=== PATIENT | female | born 1975 | race Caucasian/White ===

== ENCOUNTER 2016-10-22 21:09 | Inpatient (IN) ==
[2016-10-22] MEDS ORDERED: NS 1,000 ML IV ONE (21:30)
[2016-10-22] MEDS ORDERED: HUMULIN R IV ONE (21:30)
[2016-10-22 21:34] LABS: ALLEN TEST YES; BLOOD TYPE ARTERIAL; DRAW SITE R RADIAL; METHB 0.8 % (0.0-1.5); O2(CT) 18.1 mL/dL (15.0-23.0); PO2(98.6) 110 mmHg (60-100); SAMPLE BLOOD; SAO2 98.2 % (95.0-100.0); THB 13.3 g/dL (11.5-17.4)
[2016-10-22 21:37] LABS: MODALITY ROOM AIR
[2016-10-22 21:38] LABS: PCO2(98.6) 17 mmHg (35-45); pH(98.6) 7.05 (7.35-7.45)
[2016-10-22 21:45] LABS: MANUAL DIFF NEEDED? NO
[2016-10-22 21:49] LABS: BASO% 0.5 % (0.0-0.8); EOS# 0.13 X1000 (0.0-0.7); EOS% 0.8 % (0.0-10.0); HEMATOCRIT 41.2 % (37.0-47.0); HEMOGLOBIN 13.2 g/dL (12.0-16.0); IMM GRAN% 1.8 % (0.0-0.5); LYMPH# 4.43 X1000 (1.2-3.4); LYMPH% 25.9 % (20.5-51.1); MCH 28.8 PG (27-31); MCV 89.8 FL (81-99); MONO# 0.81 X1000 (0.11-0.59); MONO% 4.7 % (1.7-9.3); MPV 10.9 FL (7.4-10.4); NEUT% 66.3 % (42.2-75.2); PLT 447 X1000 (130-400); RBC 4.59 XMIL (4.2-5.4)
[2016-10-22 21:56] LABS: INR 0.96; PTT 22.9 Seconds (22.0-36.0)
[2016-10-22] MEDS ORDERED: ZOFRAN IV ONE (22:00)
[2016-10-22] MEDS ORDERED: PHENERGAN IM ONE (22:04)
[2016-10-22 22:11] LABS: ALBUMIN 4.3 g/dL (3.5-5.0); CALCIUM 9.4 mg/dL (8.8-10.2); TOTAL BILIRUBIN 0.37 mg/dL (0.20-1.00); TOTAL PROTEIN 7.9 g/dL (6.3-8.3)
--- NOTE | 2016-10-22 22:34 | PROVIDER DOCUMENTATION ---
This chart was entered by Xiomara Knight Scribe, acting as scribe for Dustin Humphrey MD. HPI-General Adult - General Stated Complaint: hyperglycemia Time Seen by Provider: 10/22/16 21:14 Source: patient Allergies/Adverse Reactions: Patient Allergies Allergy/AdvReac Type Severity Reaction Status Date / Time No Known Allergies Allergy Verified 10/22/16 21:40 Home Medications: Home Medication List Medication Instructions Recorded Confirmed Last Taken Type Insulin Aspart [Novolog] 0 unit SQ DIRECTED PRN PRN 10/22/16 10/22/16 History Insulin Detemir [Levemir] 40 unit SUBQ HS 10/22/16 10/22/16 10/21/16 History - History of Present Illness -Gen Adult Nature of Presenting Problems: Pt is a 41 year old female who came to the ED with a cc high blood sugar and running out of her long lasting insulin. Pt reports she is N/V. Location of Pain/Injury: reports: none Pain Radiation: reports: no radiation Quality of Pain: reports: none Severity: reports: mild Onset/Duration: reports: just prior to arrival Timing: reports: still present Associated Symptoms: reports: vomiting, weakness Similar Symptoms Previously?: Yes Recently seen or treated by another doctor?: No - Diabetes Related Context Context: reports: high blood sugar, prior DKA hospitalization Review of Systems - Adult - REVIEW OF SYSTEMS - ADULT Constitutional: denies: chills, fever Eyes: reports: no symptoms reported Ears, Nose, Mouth & Throat: denies: ear discharge, nose pain Cardiovascular: reports: no symptoms reported Respiratory: denies: cough, shortness of breath Gastrointestinal: reports: nausea, vomiting. denies: difficulty swallowing, frequent heartburn Genitourinary: reports: no symptoms reported Musculoskeletal: reports: no symptoms reported Integumentary: reports: no symptoms reported Neurological: reports: no symptoms reported Psychiatric: reports: no symptoms reported Endocrine: reports: other (High blood sugar). denies: change in skin pigment, cold intolerance Hematologic/Lymphatic: reports: no symptoms reported Allergic/Immunologic: reports: no symptoms reported All Other Systems: Reviewed and Negative Past History - Adult - PAST MEDICAL HISTORY-ADULT Review of Records: reports: Nursing Assessment Review Major Childhood Illnesses: reports: denies history Cardiovascular: reports: hyperlipidemia Gastrointestinal: reports: GERD Genitourinary: reports: chronic UTI's, other (ARF) Neurological: reports: Seizures/Epilepsy Psychiatric: reports: anxiety, depression Endocrine/Immune: reports: Diabetes Additional History: Frequent ER visits - PRIOR SURGERIES/PROCEDURES Surgical/Procedure History: reports: cholecystectomy, BTL, , tonsillectomy - PRIOR HOSPITALIZATIONS Prior Hospitalizations: reports: for similar symptoms - IMMUNIZATION STATUS Childhood Immunizations: See Nurse Assessment Flu Vaccine: See Nurse Assessment - FAMILY HISTORY Family History: diabetes Physical Exam-General - PHYSICAL EXAM-ADULT Initial Vital Signs Reviewed: Yes - CONSTITUTIONAL General Appearance: mild distress - EYES Eyes: PERRL/EOMI, pink conjunctivae - HEAD, EARS, NOSE, MOUTH & THROAT HENMT: normocephalic/atraumatic, moist mucous membranes, normal ENT inspection - NECK Neck: non-tender, full range of motion - RESPIRATORY Respiratory: chest non-tender, lungs clear, normal breath sounds - CARDIOVASCULAR Cardiovascular: normal peripheral pulses, regular rate, rhythm - GASTROINTESTINAL (ABDOMEN) Abdominal Exam: normal bowel sounds, non tender, soft - MUSCULOSKELETAL Back Exam: normal inspection, no CVA tenderness Extremity: normal range of motion, non-tender - SKIN Integumentary: pallor, other (dry) - NEUROLOGIC Neurologic: grossly normal - PSYCHIATRIC Psych/Mental Status: normal mood/affect, normal thought content, normal thought process, oriented x 3 Progress - PLAN OF CARE/RESULTS Progress/Plan/Lab Results: Vital Signs - 8 hr 10/22/16 21:15 Temperature 98.4 F Pulse Rate 137 H Respiratory Rate 15 Blood Pressure 153/102 O2 Sat by Pulse Oximetry 96 Laboratory Results - last 24 hr 10/22/16 10/22/16 10/22/16 21:20 21:20 21:20 WBC 17.10 H RBC 4.59 Hgb 13.2 Hct 41.2 MCV 89.8 MCH 28.8 MCHC 32.0 L RDW Std Deviation 16.5 H Plt Count 447 H MPV 10.9 H Immature Gran % (Auto) 1.8 H Neut % (Auto) 66.3 Lymph % (Auto) 25.9 [place] % (Auto) 4.7 Eos % (Auto) 0.8 Baso % (Auto) 0.5 Immature Gran # (Auto) 0.30 H Neut # (Auto) 11.34 H Lymph # (Auto) 4.43 H [place] # (Auto) 0.81 H Eos # (Auto) 0.13 Baso # (Auto) 0.09 PT INR PTT (Actin FS) Specimen Type Sample Site pH pCO2 pO2 HCO3 Base Excess Oxyhemoglobin ABG O2 Sat (Calculated) ABG O2 Saturation ABG Carboxyhemoglobin ABG Methemoglobin Manuel Test A-a O2 Difference Total Hemoglobin Lactate Blood Gas Modality FiO2 % Sodium 127 L Potassium 5.0 Chloride 80 L Carbon Dioxide 5 L Anion Gap 42 BUN 15 Creatinine 1.1 H Estimated GFR/1.73 m2 55 BUN/Creatinine Ratio 14 Glucose 984 H* Calculated Osmolality 303 Calcium 9.4 Total Bilirubin 0.37 AST 77 H ALT 174 H Alkaline Phosphatase 206 H Creatine Kinase 19 L Troponin T Total Protein 7.9 Albumin 4.3 Globulin 3.6 Albumin/Globulin Ratio 1.2 Plasma/Serum Ethyl Alc 10/22/16 10/22/16 10/22/16 21:20 21:20 21:24 WBC RBC Hgb Hct MCV MCH MCHC RDW Std Deviation Plt Count MPV Immature Gran % (Auto) Neut % (Auto) Lymph % (Auto) [place] % (Auto) Eos % (Auto) Baso % (Auto) Immature Gran # (Auto) Neut # (Auto) Lymph # (Auto) [place] # (Auto) Eos # (Auto) Baso # (Auto) PT 10.0 INR 0.96 PTT (Actin FS) 22.9 Specimen Type ARTERIAL Sample Site R RADIAL pH 7.05 L* pCO2 17 L* pO2 110 H HCO3 6.2 L Base Excess -24.0 L Oxyhemoglobin 95.9 ABG O2 Sat (Calculated) 18.1 ABG O2 Saturation 98.2 ABG Carboxyhemoglobin 1.50 ABG Methemoglobin 0.8 Manuel Test YES A-a O2 Difference 18.0 Total Hemoglobin 13.3 Lactate 2.20 Blood Gas Modality ROOM AIR FiO2 % 21.0 Sodium Potassium Chloride Carbon Dioxide Anion Gap BUN Creatinine Estimated GFR/1.73 m2 BUN/Creatinine Ratio Glucose Calculated Osmolality Calcium Total Bilirubin AST ALT Alkaline Phosphatase Creatine Kinase Troponin T < 0.010 Total Protein Albumin Globulin Albumin/Globulin Ratio Plasma/Serum Ethyl Alc Orders Category Date Time Status Cardiac Monitoring DIRECTED Care 10/22/16 21:24 Active Finger Stick Blood Sugar (ED) DIRECTED Care 10/22/16 21:24 Active Oxygen Therapy- ED Nursing DIRECTED Care 10/22/16 21:24 Active Saline Loc NOW Care 10/22/16 21:24 Active CHEST-PORTABLE [RAD] Stat Exams 10/22/16 21:24 Taken ABG [RESP] Routine Lab 10/22/16 21:24 Completed ABG [RESP] Routine Lab 10/22/16 21:29 Ordered ALCOHOL BLOOD Stat Lab 10/22/16 21:20 Completed CBC WITH ELECTRONIC DIFF [HEME] Stat Lab 10/22/16 21:20 Completed CK PROFILE [SP CHEM] Stat Lab 10/22/16 21:20 Completed COMPREHENSIVE METABOLIC PANEL [CHEM] Stat Lab 10/22/16 21:20 Completed PROTIME WITH INR [COAG] Stat Lab 10/22/16 21:20 Completed PTT [COAG] Stat Lab 10/22/16 21:20 Completed TROPONIN T Stat Lab 10/22/16 21:20 Completed URINALYSIS W/POSS RFLX CULT-1 [URINALYSIS] Stat Lab 10/22/16 22:29 Ordered URINE DRUG SCREEN Stat Lab 10/22/16 22:29 Ordered 0.9% Sodium Chloride Inj [Ns] 1,000 ml Med 10/22/16 21:30 Discontinued IV 999 mls/hr 0.9% Sodium Chloride Inj [Ns] 100 ml Med 10/22/16 22:15 Active Insulin Human Regular [Humulin R] 100 unit IV Per Protocol Insulin Human Regular [Humulin R] Med 10/22/16 21:30 Discontinued 15 unit IV NOW ONE Ondansetron [Zofran] Med 10/22/16 22:00 Discontinued 8 mg IV NOW ONE Promethazine [Phenergan] Med 10/22/16 22:04 Discontinued 25 mg IM NOW ONE Pulse Oximetry Stat Oth 10/22/16 21:24 Active EKG [EKG] Stat Ther 10/22/16 21:24 Ordered Result Diagrams: 10/22/16 21:20 10/22/16 21:20 Departure - Departure Date of Disposition Decision: 10/22/16 Time of Disposition Decision: 22:34 DIAGNOSIS: Diabetic ketoacidosis Disposition: ADMITTED INPATIENT 09 Certified Medical Emergency: Emergent Condition: Critical - Critical Care Note This patient required my direct & personal management of CC.: No Attestation - Physician/ KIAN Attestation The physician spent face to face time with patient:: Yes Advanced Practice Provider documentation review:: The physician spent face to face time with this patient and agrees with all MLP documentation, treatment, and medical decision making by the MLP. See provider notes for further information. This chart was documented by the indicated scribe, (Xiomara Knight Scribe) and accurately reflects the services I performed and decisions made by , Dustin Humphrey MD, as attested by the provider's signature.
[2016-10-22 22:48] LABS: URINE CULTURE NEEDED? NO; URINE MICRO REVIEW NEEDED? NO; URINE SOURCE CATH
[2016-10-22 23:05] LABS: UR AMPHETAMINES QUAL NONE DETECTED (NONE DETECT); UR BARBITUATES QUAL NONE DETECTED (NONE DETECT); UR BENZODIAZEPIN QUAL NONE DETECTED (NONE DETECT); UR CANNABINOIDS QUAL NONE DETECTED (NONE DETECT); UR COCAINE QUAL NONE DETECTED (NONE DETECT); UR METHADONE QUAL NONE DETECTED (NONE DETECT); UR OPIATES QUAL NONE DETECTED (NONE DETECT); UR OXYCODONE QUAL NONE DETECTED (NONE DETECT); UR PCP QUAL NONE DETECTED (NONE DETECT)
[2016-10-22 23:09] LABS: BILIRUBIN URINE NEGATIVE (NEGATIVE); BLOOD URINE NEGATIVE (NEGATIVE); COLOR YELLOW; GLUCOSE URINE >1000 mg/dL (NEGATIVE); LEUKOCYTES URINE NEGATIVE (NEGATIVE); NITRITE URINE NEGATIVE (NEGATIVE); PROTEIN URINE TRACE mg/dL (NEGATIVE); SP GRAVITY URINE 1.024; TURBIDITY URINE CLEAR (CLEAR); UR EPITHELIAL CELLS <10 /HPF (<10); URINE BACTERIA NEGATIVE /HPF; URINE RBC <10 /HPF (<10); URINE WBC <10 /HPF (<10); UROBILINOGEN URINE NORMAL (NORMAL)
[2016-10-22 23:11] LABS: MAGNESIUM 1.9 mg/dL (1.5-2.7)
[2016-10-22 23:18] LABS: HEMOGLOBIN A1C 11.3 % (4.8-6.0)
[2016-10-22] MEDS: HUMULIN R 100 UNIT in NS 100 ML IV SCH (23:40)
[2016-10-22] MEDS ORDERED: D50W SYRINGE IV PRN (23:42)
[2016-10-22] MEDS ORDERED: ZOFRAN PO PRN (23:42)
[2016-10-22] MEDS ORDERED: SODIUM PHOSPHATE 30 MMOL in D5W 250 ML IV PRN (23:42)
[2016-10-22] MEDS ORDERED: TYLENOL PR PRN (23:42)
--- NOTE | 2016-10-23 00:14 | HISTORY AND PHYSICAL ---
Patient of Dr. Fredo Worrell REASON FOR ADMISSION: Polyuria, polydipsia for 3 days, nausea and vomiting for same duration and generalized weakness for the last 2 days. HISTORY OF PRESENT ILLNESS: Ms. Lakshmi Mallory is 41-year-old lady with past medical history of type 1 diabetes with multiple admissions for DKA. Comes in today and about 3-4 days history of nausea and subsequent 1 day history of vomiting today 6 times. No blood or coffee grounds. Also complains of epigastric discomfort for the last 1-2 days and worse after vomiting. No diarrhea. The pain is epigastric pain localized epigastric not radiating. Comes in today complaining of worsening polyuria, polydipsia and generalized weakness. She says she has been out of her Levemir for 2 days. She has taken Humalog however. Complains of sharp to dull constant chest pain today nonradiating with no specific aggravating or relieving factors and with simultaneous palpitations and shortness of breath. Pain does not radiate anywhere per se, it is pretty much in the retrosternal area. No cough, no PND, orthopnea, extremity redness or pain. No fever, no chills. REVIEW OF SYSTEMS: Notable for xerostomia, dry sore throat and a dull throbbing headache with blurry vision but no neck stiffness. She complains of excessive thirst also. Review of systems 12 systems is negative. Positive findings per HPI. ALLERGIES: No known allergies. MEDICATION LIST: She is on Levemir 25 units b.i.d. and NovoLog per sliding scale. SURGICAL HISTORY: A cholecystectomy, tubal ligation, , tonsillectomy. SOCIAL HISTORY: Smokes a half pack a day. No alcohol or drug use. She is and lives with spouse. FAMILY HISTORY: Notable for throat cancer, diabetes and COPD. LAB WORK: Notable for an EKG that showed nonspecific ST depressions in the inferior leads. No sinus tachycardia. White count 17,000 hemoglobin and hematocrit 13 and 41, platelets 447,000 with normal differential. Sodium was 127, BUN 14, creatinine 1.1, glucose 984, phosphorus 5.5, AST 77, ALT 174, alkaline phosphatase 207, troponin is negative, amylase, lipase is normal, bicarb is 5, anion gap is 42 UDS is negative. Glucose greater than 1000, ketones greater than 150. ABG 7.0 pH, pCO2 17, PO2 110, bicarb 6 on room air. Chest film reviewed by me. Good quality film with no infiltrates, no evidence of pneumothorax and she has a slightly thin heart and well- expanded lungs findings mildly suggestive COPD. EXAMINATION: Vital signs: Pulse is 142, temperature 98.4 degrees, respirations 18, blood pressure 174/82, 97% room air. General: She is a thin middle-aged woman who appears older than stated age. She is drowsy but easily arousable oriented to person, place, and time, sad affect and depressed mood. HEENT: Head is normocephalic, atraumatic. ESTHELA, EOMI, she is anicteric and not pale. ENT exam is grossly normal. Neck: Supple. No JVD or carotid bruit. No thyromegaly. She has good skin turgor. Chest: Clear to auscultation. Good air entry both lung bello. Cardiovascular: First, second heart sounds heard. No gallops, murmurs, rubs. Rhythm is regular. Abdomen: Scaphoid, soft, epigastric tenderness and right upper quadrant tenderness. Krishna's negative. No rebound or guarding. Bowel sounds are normal. No mass or megaly. Rectal: Deferred. Extremities: Patient has decreased pulses distally in all extremities and is weak and thready but they are symmetrical. No edema, clubbing, cyanosis. Neuro: No discernible focal deficit. Skin: Is intact. No breakdown, lesion, erythema. Muscular exam: Grossly normal. ASSESSMENT AND PLAN: 1. Diabetic ketoacidosis probably secondary to noncompliance. 2. Dehydration secondary to #. 3. Diabetic ketoacidosis type 1. 4. Epigastric pain probably secondary to gastritis and vomiting. 5. Tobacco use. PLAN: At this time patient will be admitted to the ICU. Started on DKA protocol with serial labs. A1c has been ordered and need to be followed and probably prior to her discharge insulin regimen may need to be adjusted. Patient in my opinion I suspect is not very compliant with her medications. This needs to be reemphasized importance of compliance and IV fluid resuscitation will be aggressively pursued in the acute phase of her illness. CRITICAL CARE TIME: Was 33 minute. cc: Fredo Worrell MD
[2016-10-23] MEDS: SODIUM CHLORIDE 0.9% INJ SCH ×2 (00:40→11:20)
[2016-10-23] MEDS: PEPCID IV SCH ×2 (00:40→11:20)
[2016-10-23] MEDS: NS 1,000 ML IV SCH ×3 (00:40→03:13)
[2016-10-23] MEDS: HUMULIN R 100 UNIT in NS 100 ML IV SCH (01:05)
[2016-10-23] MEDS: MORPHINE IV PRN ×5 (01:50→19:33)
[2016-10-23] MEDS: COMPAZINE PO PRN ×2 (01:56→08:15)
[2016-10-23 03:20] LABS: AGAP 29; BUN 14 mg/dL (8-22); CALCIUM 8.3 mg/dL (8.8-10.2); CHLORIDE 104 mmol/L (98-107); COSMO 290; MAGNESIUM 1.4 mg/dL (1.5-2.7); POTASSIUM 3.5 mmol/L (3.5-5.1); SODIUM 140 mmol/L (136-145); TCO2 7 mmol/L (25-35)
[2016-10-23] MEDS: MAGNESIUM SULFATE 2 GM/S.W.I. 2 GM/50 ML IVPB IV PRN ×2 (04:02→21:05)
[2016-10-23] MEDS: NS + KCL 20 MEQ 1,000 ML IV SCH ×6 (04:08→22:05)
--- NOTE | 2016-10-23 07:15 | Diag Imaging Result Doc PS360 ---
EXAM: CHEST-PORTABLE INDICATION: AMS TECHNIQUE: One view COMPARISON: 01/23/2016 FINDINGS: The lungs are grossly clear. There is no discrete pleural fluid collection or pneumothorax. The cardiomediastinal silhouette and central vasculature are grossly unremarkable. IMPRESSION: No evidence of acute pathology by plain radiograph. Electronically signed by German Aguirre 10/23/2016 7:13 AM
--- NOTE | 2016-10-23 07:31 | EKG Report ---
Test Performed on : 10/22/2016 10:31:29 PM Test Reason : AMS Blood Pressure : / mmHG Vent. Rate : 139 BPM Atrial Rate : 139 BPM P-R Int : 116 ms QRS Dur : 078 ms QT Int : 294 ms P-R-T Axes : 068 085 -07 degrees QTc Int : 447 ms Sinus tachycardia. Possible Left atrial enlargement T wave abnormality, consider inferior ischemia Abnormal ECG When compared with ECG of 29-JAN-2016 09:01, Inverted T waves have replaced nonspecific T wave abnormality in Inferior leads Unconfirmed Result
[2016-10-23] MEDS: D5 1/2 NS + KCL 10 MEQ 1,000 ML IV SCH ×4 (08:36→22:26)
[2016-10-23 09:37] LABS: MAGNESIUM 2.1 mg/dL (1.5-2.7)
[2016-10-23 09:44] LABS: AGAP 19; BUN 10 mg/dL (8-22); CALCIUM 7.8 mg/dL (8.8-10.2); CHLORIDE 105 mmol/L (98-107); COSMO 284; POTASSIUM 4.6 mmol/L (3.5-5.1); SODIUM 140 mmol/L (136-145); TCO2 16 mmol/L (25-35)
[2016-10-23] MEDS: ZOFRAN IV PRN ×2 (09:51→16:01)
[2016-10-23 10:23] LABS: BASO% 0.2 % (0.0-0.8); HEMATOCRIT 34.5 % (37.0-47.0); HEMOGLOBIN 11.6 g/dL (12.0-16.0); IMM GRAN# 0.17 X1000 (0.0-0.04); IMM GRAN% 0.8 % (0.0-0.5); LYMPH# 2.74 X1000 (1.2-3.4); LYMPH% 13.4 % (20.5-51.1); MANUAL DIFF NEEDED? YES; MCH 28.6 PG (27-31); MCHC 33.6 g/dL (33-37); MCV 85.2 FL (81-99); MONO# 1.11 X1000 (0.11-0.59); MONO% 5.4 % (1.7-9.3); MPV 10.3 FL (7.4-10.4); NEUT% 80.2 % (42.2-75.2); PLT 353 X1000 (130-400); RBC 4.05 XMIL (4.2-5.4)
[2016-10-23] MEDS: XANAX PO PRN ×2 (10:33→20:48)
[2016-10-23 10:40] LABS: BANDS 2 % (0-1); LYMPHS 8 % (21-51); MONO 8 % (1-9)
[2016-10-23] MEDS: TYLENOL PO PRN ×2 (12:42→18:21)
[2016-10-23 13:47] LABS: AGAP 16; BUN 8 mg/dL (8-22); CALCIUM 7.4 mg/dL (8.8-10.2); CHLORIDE 103 mmol/L (98-107); COSMO 275; POTASSIUM 3.7 mmol/L (3.5-5.1); SODIUM 136 mmol/L (136-145); TCO2 17 mmol/L (25-35)
[2016-10-23 13:53] LABS: MAGNESIUM 1.8 mg/dL (1.5-2.7)
[2016-10-23 15:00] LABS: ALLEN TEST YES; BE -12.2 mmoll (-3.0-3.0); BLOOD TYPE ARTERIAL; DRAW SITE R RADIAL; O2(CT) 13.5 mL/dL (15.0-23.0); PCO2(98.6) 27 mmHg (35-45); PO2(98.6) 105 mmHg (60-100); SAMPLE BLOOD; SAO2 98.7 % (95.0-100.0); THB 9.8 g/dL (11.5-17.4); pH(98.6) 7.29 (7.35-7.45)
[2016-10-23 15:01] LABS: MODALITY ROOM AIR
--- NOTE | 2016-10-23 15:57 | PROGRESS NOTE ---
DATE: 10/23/2016 SUBJECTIVE: Patient reports still feeling nauseated. No fever reported. No nausea. She reports feeling a little bit anxious. OBJECTIVE: Vital Signs: Temperature 97.9 degrees, heart rate 110, respiratory rate 16, blood pressure 120/72, O2 saturation 100% on room air. General examination: This is a chronically ill- looking, 41-year-old female lying in bed, in no acute distress. HEENT: Head is normocephalic, atraumatic. Anicteric sclerae and pale conjunctivae. Mucous membranes moist. Neck: Supple. No JVD noted. No carotid bruits. No lymphadenopathy. No thyromegaly. Cardiovascular: S1, S2 heard. No murmurs, gallops, or rubs. Regular rate and rhythm. Respiratory: Clear bilaterally to auscultation. No work of breathing or using accessory muscle. Abdomen: Soft. Nontender to palpation. Bowel sounds present. No organomegaly. Extremities: No clubbing, cyanosis, or edema. Peripheral pulses present in both legs. Neurological: Patient is alert and oriented x3. Able to move 4 extremities. Cranial nerves 2 through 12 grossly normal. LABORATORY DATA: Last BMP showed anion gap 19, bicarbonate 16, phosphorus 2.1, magnesium 1.4. ASSESSMENT: 1. Diabetic ketoacidosis secondary to noncompliance. 2. Dehydration. 3. Diabetes mellitus type 1. 4. Epigastric pain secondary to gastritis. 5. Tobacco use. PLAN: We are going to continue with insulin drip. The anion gap is slowly closing. Now it is still 19. Bicarbonate is going up slowly. At this time, we are going to continue with the same IV fluids, in this case D5 half normal saline and also on insulin drip as well. We are going to continue checking BMP every 4 hours. We are going to check 2 p.m. ABG and we will go from there. This episode of DKA noncompliance. Patient was advised about being compliant with her insulin. cc: Krishan Berrios MD
[2016-10-23] MEDS: ZOSYN 3.375 GM/NS 3.375 GM/50 ML IVPB IV SCH ×2 (16:01→20:48)
[2016-10-23 16:31] LABS: AGAP 17; BUN 7 mg/dL (8-22); CHLORIDE 104 mmol/L (98-107); COSMO 276; POTASSIUM 3.4 mmol/L (3.5-5.1); SODIUM 136 mmol/L (136-145); TCO2 15 mmol/L (25-35)
[2016-10-23] MEDS ORDERED: CALCIUM GLUCONATE 2 GM in NS 100 ML IV ONE (16:37)
[2016-10-23 19:47] LABS: AGAP 16; BUN 5 mg/dL (8-22); CALCIUM 7.8 mg/dL (8.8-10.2); CHLORIDE 101 mmol/L (98-107); COSMO 269; POTASSIUM 3.3 mmol/L (3.5-5.1); SODIUM 134 mmol/L (136-145); TCO2 17 mmol/L (25-35)
[2016-10-23 20:33] LABS: MAGNESIUM 1.7 mg/dL (1.5-2.7)
[2016-10-24] MEDS: MORPHINE IV PRN ×7 (00:50→21:40)
[2016-10-24] MEDS: ZOFRAN IV PRN ×3 (00:51→21:41)
[2016-10-24] MEDS: NS + KCL 20 MEQ 1,000 ML IV SCH ×5 (02:31→15:33)
[2016-10-24] MEDS: D5 1/2 NS + KCL 10 MEQ 1,000 ML IV SCH ×6 (02:32→20:35)
[2016-10-24] MEDS: SODIUM CHLORIDE 0.9% INJ SCH ×3 (02:35→14:56)
[2016-10-24] MEDS: PEPCID IV SCH ×2 (02:40→14:56)
[2016-10-24] MEDS: ZOSYN 3.375 GM/NS 3.375 GM/50 ML IVPB IV SCH ×4 (02:41→21:09)
[2016-10-24] MEDS: XANAX PO PRN ×3 (02:58→18:06)
[2016-10-24 03:09] LABS: AGAP 15; BUN 3 mg/dL (8-22); CALCIUM 7.6 mg/dL (8.8-10.2); CHLORIDE 103 mmol/L (98-107); COSMO 272; MAGNESIUM 2.1 mg/dL (1.5-2.7); POTASSIUM 3.4 mmol/L (3.5-5.1); SODIUM 137 mmol/L (136-145); TCO2 19 mmol/L (25-35)
[2016-10-24 08:05] LABS: AGAP 18; BUN 2 mg/dL (8-22); CALCIUM 7.4 mg/dL (8.8-10.2); CHLORIDE 103 mmol/L (98-107); COSMO 272; POTASSIUM 3.8 mmol/L (3.5-5.1); SODIUM 137 mmol/L (136-145); TCO2 16 mmol/L (25-35)
[2016-10-24 08:32] LABS: MAGNESIUM 2.3 mg/dL (1.5-2.7)
[2016-10-24] MEDS: HUMULIN R 100 UNIT in NS 100 ML IV SCH (08:34)
[2016-10-24 10:39] LABS: MANUAL DIFF NEEDED? NO
[2016-10-24 10:44] LABS: BASO% 0.3 % (0.0-0.8); EOS# 0.07 X1000 (0.0-0.7); EOS% 0.7 % (0.0-10.0); HEMATOCRIT 29.8 % (37.0-47.0); HEMOGLOBIN 9.9 g/dL (12.0-16.0); IMM GRAN# 0.03 X1000 (0.0-0.04); IMM GRAN% 0.3 % (0.0-0.5); LYMPH# 3.75 X1000 (1.2-3.4); LYMPH% 38.8 % (20.5-51.1); MCH 28.4 PG (27-31); MCHC 33.2 g/dL (33-37); MCV 85.6 FL (81-99); MONO% 5.2 % (1.7-9.3); MPV 9.5 FL (7.4-10.4); NEUT% 54.7 % (42.2-75.2); PLT 240 X1000 (130-400); RBC 3.48 XMIL (4.2-5.4)
[2016-10-24 11:02] LABS: AGAP 13; BUN 2 mg/dL (8-22); CALCIUM 7.2 mg/dL (8.8-10.2); CHLORIDE 102 mmol/L (98-107); COSMO 262; POTASSIUM 3.7 mmol/L (3.5-5.1); SODIUM 131 mmol/L (136-145); TCO2 16 mmol/L (25-35)
--- NOTE | 2016-10-24 14:26 | PROGRESS NOTE ---
DATE: 10/24/2016 SUBJECTIVE: Patient reports feeling better. She was trying clear liquid diet and she requests to try something more consistent. She denies any fever or chills. OBJECTIVE: Vital Signs: Temperature 97.8 degrees, heart rate 80, respiratory rate 16, blood pressure 119/85, and O2 saturation 100% on room air. General: This is a chronically ill-looking, 41-year-old, female, lying in bed in no acute distress. HEENT: Head is normocephalic and atraumatic. Anicteric sclerae and pale conjunctivae. Mucous membranes moist. Neck: Supple. No JVD noted. No carotid bruits. No lymphadenopathy. No thyromegaly. Cardiovascular: S1 and S2 heard. No murmurs, gallops, or rubs. Regular rate and rhythm. Respiratory: Clear bilaterally to auscultation. No work of breathing or using accessory muscles. Abdomen: Soft, nontender to palpation. Bowel sounds present. No organomegaly. Extremities: No clubbing, cyanosis, or edema. Peripheral pulses present in both legs. Neurological: Patient is alert and oriented x3. Able to move her extremities. Cranial nerves 2-12 grossly normal. LABORATORY DATA: White cell count 9.67, hemoglobin 9.9, hematocrit 29.8, and platelets 240,000. Last BMP showed anion gap 18 with bicarbonate of 16 and glucose 142 with hemoglobin A1c of 11.3. ASSESSMENT AND PLAN: 1. Diabetic ketoacidosis secondary to noncompliance. Patient reports that she ran out of medication. Patient's primary care was trying to get her in with an care partner. In any case, patient's laboratory data is getting better. Gap is about to close, but not now. At this time, we are going to continue with the insulin drip. We will continue checking BMP every 6 hours. When the gap closes and bicarbonate is greater than 19-20, we will switch to her home medication, Levemir. 2. Diabetes mellitus, type 1, very poorly controlled with hemoglobin A1c of 11.1. Patient has been advised many times about the importance of being compliant with medication. 3. Dehydration. Patient will continue with IV fluids. 4. Epigastric pain secondary to gastritis. Aware. 5. Tobacco abuse. Patient has been counseled to stop smoking. cc: Krishan Berrios MD
[2016-10-24 17:24] LABS: AGAP 9; BUN 1 mg/dL (8-22); CALCIUM 7.2 mg/dL (8.8-10.2); CHLORIDE 105 mmol/L (98-107); COSMO 268; POTASSIUM 3.5 mmol/L (3.5-5.1); SODIUM 134 mmol/L (136-145); TCO2 20 mmol/L (25-35)
[2016-10-24] MEDS ORDERED: LEVEMIR SUBQ SCH (23:28)
[2016-10-24] MEDS ORDERED: HUMALOG SUBQ ONE (23:28)
[2016-10-24 23:49] LABS: AGAP 11; BUN 2 mg/dL (8-22); CALCIUM 7.1 mg/dL (8.8-10.2); CHLORIDE 104 mmol/L (98-107); COSMO 272; SODIUM 135 mmol/L (136-145); TCO2 20 mmol/L (25-35)
[2016-10-25] MEDS ORDERED: INSULIN PEN NEEDLES ONE (00:03)
[2016-10-25] MEDS: MORPHINE IV PRN ×5 (00:23→12:59)
[2016-10-25] MEDS: XANAX PO PRN ×2 (00:24→06:26)
[2016-10-25] MEDS: HUMALOG SUBQ SCH ×4 (00:29→11:42)
[2016-10-25] MEDS: D5 1/2 NS + KCL 10 MEQ 1,000 ML IV SCH (00:44)
[2016-10-25] MEDS: NS 1,000 ML IV SCH ×2 (00:48→08:26)
[2016-10-25] MEDS: ZOSYN 3.375 GM/NS 3.375 GM/50 ML IVPB IV SCH ×2 (03:46→08:24)
[2016-10-25] MEDS: PEPCID IV SCH (03:46)
[2016-10-25] MEDS: SODIUM CHLORIDE 0.9% INJ SCH (03:46)
[2016-10-25 05:43] LABS: MANUAL DIFF NEEDED? NO
[2016-10-25 06:21] LABS: AGAP 11; BUN 2 mg/dL (8-22); CALCIUM 7.7 mg/dL (8.8-10.2); CHLORIDE 106 mmol/L (98-107); COSMO 268; POTASSIUM 4.2 mmol/L (3.5-5.1); SODIUM 136 mmol/L (136-145); TCO2 19 mmol/L (25-35)
[2016-10-25 06:31] LABS: BASO% 0.3 % (0.0-0.8); EOS# 0.14 X1000 (0.0-0.7); EOS% 2.1 % (0.0-10.0); IMM GRAN# 0.02 X1000 (0.0-0.04); IMM GRAN% 0.3 % (0.0-0.5); LYMPH# 3.19 X1000 (1.2-3.4); LYMPH% 48.5 % (20.5-51.1); MCH 29.2 PG (27-31); MCHC 33.3 g/dL (33-37); MCV 87.7 FL (81-99); MONO# 0.51 X1000 (0.11-0.59); MONO% 7.8 % (1.7-9.3); MPV 9.9 FL (7.4-10.4); PLT 216 X1000 (130-400); RBC 3.42 XMIL (4.2-5.4)
[2016-10-25] MEDS ORDERED: NEUTRA-PHOS PO ONE (09:00)
[2016-10-25] MEDS ORDERED: SODIUM PHOSPHATE 30 MEQ in NS 250 ML IV ONE (10:00)
[2016-10-25 11:33] VITALS: BP 105/80
--- NOTE | 2016-10-26 08:03 | DISCHARGE SUMMARY ---
ADMISSION DATE: 10/23/2016 DISCHARGE DATE: 10/25/2016 CONSULTATIONS: None. PERTINENT PROCEDURES: Chest x-ray showed no evidence of acute pathology. DISCHARGE DIAGNOSES: 1. Diabetic ketoacidosis secondary to noncompliance, resolved. 2. Diabetes mellitus, type 1, poorly controlled with a hemoglobin A1c of 11.1. The patient has been educated about the importance of being compliant with diet and medication. 3. Dehydration, resolved, secondary to #1. 4. Epigastric pain secondary to gastritis and #1, improved. 5. Tobacco abuse. Patient has been educated daily again on cessation as well as the means to quit. HOSPITAL COURSE: Briefly, Ms. Mallory is a 41-year-old female who carries a past medical history of type 1 diabetes with multiple admissions for DKA, came to the ED with 3-4 days history of nausea and subsequent 1-day history of vomiting 6 times. No blood or coffee ground emesis. Also complains of epigastric discomfort that is worse after vomiting. No diarrhea. She complained of worsening polyuria, polydipsia, and generalized weakness. She states she has been on her Levemir for 2 days. She has taken her Humalog however. She complains of [id number] constant chest pain that is nonradiating. No specific aggravating or relieving factors with simultaneous palpitations or shortness of breath. Lab work in the ED showed a white count of 17. Sodium was 127. BUN 14, creatinine 1.1, blood glucose was 984. Phosphorus was 5.5, AST was 77, ALT 174. Alkaline phosphatase was 207. Troponins were negative. Amylase lipase normal. Bicarb was 5. Anion cap was 42. UDS was negative. Glucose was greater than 1000. Ketones were greater than 150. ABG: pH was 7.0, pCO2 was 17, PO2 of 110, bicarb with 6 on room air. Chest exam was negative. She was admitted to the ICU and started on the DKA protocol. She was re- educated daily on the importance of being compliant with medications as well as diet and smoking cessation. Slowly, her ion gap was closing. Her bicarb was coming up. She continued in the ICU on insulin drip. The patient was able to come off the DKA protocol on 10/24/2016 at 2230 and placed on sliding scale and resumed on home medications and started on a clear liquid diet. She resumed on normal saline. She is now tolerating a diabetic diet with no complaints of nausea or vomiting. Dr. Mcnally has assessed the patient this morning. He says that she is appropriate for discharge. At this time, temperature 97.7 degrees, heart rate 90 respirations 18, blood pressure 92/62, O2 is 100% on room air. DISCHARGE DIET: Diabetic. DISCHARGE MEDICATIONS: As per Dr. Mcnally. 1. Klonopin 0.5 mg p.o. b.i.d. p.r.n. 2. NovoLog cartridge as directed p.r.n. 3. Levemir 40 units subcutaneously at bedtime. 4. Ultram 50 mg p.o. q.4 hours p.r.n. FOLLOWUP: The patient is being discharged home. She will follow up with her primary care physician, Dr. Fredo Worrell, in 7-10 days. The patient has been educated on the importance of being compliant with diabetic diet as well as medications as well as smoking cessation and the means to quit. The patient can return to the ED for any worsening of symptoms. Dictated by ANGELA Mohamud for Krishan Berrios MD cc: MD Fredo Das MD
--- NOTE | 2017-01-17 09:42 | ED EKG INTERP ---
This chart was entered by Xiomara Knight Scribe, acting as scribe for Dustin Humphrey MD. EKG Interpretation - EKG Time of EKG reading by physician:: 22:31 EKG Read and Signed by:: Dustin Humphrey EKG Interpretation (*Must complete 3 of following elements*): Abnormal Rate: 139 (possible left atrial enlargement; T wave abnormality, consider inferior ischemia) Rhythm: sinus tachycardia Attestation - Physician/ KIAN Attestation Patient care was provided by Advanced Practice Provider:: Yes Advanced Practice Provider documentation review:: The Mid-level provider documentation, treatment plan and medical decision making was reviewed by the physician who agrees with all treatment and medical decision making by the MLP. The physician spent face to face time with patient:: No Advanced Practice Provider documentation review:: Supervising physician onsite and consulted in the evaluation and care of this patient. The physician did not have a face to face encounter with the patient. This chart was documented by the indicated scribe, (Xiomara Knight Scribe) and accurately reflects the services I performed and decisions made by Milagro león Christophe I, MD, as attested by the provider's signature.
== END 2016-10-25 14:38 | disposition home or self-care (01) ==
LOC: ED 21:09 → SUATTDRO 10-23 00:41 → ICU 10-23 00:41
PROVIDERS: ATTEND Internal Medicine

== ENCOUNTER 2018-09-09 18:25 | Inpatient (IN) ==
[2018-09-09 18:57] LABS: ALLEN TEST YES; BE -28.3 mmoll (-3.0-3.0); BLOOD TYPE ARTERIAL; HCO3-(ACT) 2.8 mmoll (20.0-26.0); METHB 1.2 % (0.0-1.5); O2(CT) 14.6 mL/dL (15.0-23.0); O2HB 96.4 % (95.0-99.0); PO2(98.6) 132 mmHg (60-100); SAMPLE BLOOD; SAO2 98.9 % (95.0-100.0); THB 10.6 g/dL (11.5-17.4)
[2018-09-09 18:58] LABS: MODALITY ROOM AIR
[2018-09-09 19:01] LABS: PCO2(98.6) 12 mmHg (35-45); pH(98.6) 6.92 (7.35-7.45)
[2018-09-09] MEDS ORDERED: NS 1,000 ML, NS 1,000 ML IV ONE ×2 (19:14)
[2018-09-09] MEDS ORDERED: NS 1,000 ML IV ONE ×3 (19:15→20:41)
[2018-09-09] MEDS ORDERED: NS 2,000 ML ONE (19:19)
[2018-09-09 19:46] LABS: URINE SOURCE CLEAN CATCH
[2018-09-09 19:50] LABS: INR 1.24; PROTIME 16.6 Seconds (11.0-16.0); PTT 29.3 Seconds (22.3-41.8)
[2018-09-09 19:52] LABS: BILIRUBIN URINE NEGATIVE (NEGATIVE); BLOOD URINE NEGATIVE (NEGATIVE); COLOR YELLOW; GLUCOSE URINE >1000 mg/dL (NEGATIVE); KETONE URINE 20 mg/dL (NEGATIVE); LEUKOCYTES URINE NEGATIVE (NEGATIVE); NITRITE URINE NEGATIVE (NEGATIVE); PROTEIN URINE NEGATIVE (NEGATIVE); SP GRAVITY URINE 1.023; TURBIDITY URINE CLEAR (CLEAR); UROBILINOGEN URINE NORMAL (NORMAL)
[2018-09-09 19:59] LABS: UR EPITHELIAL CELLS <10 /HPF (<10); URINE BACTERIA 1+ /HPF; URINE RBC <10 /HPF (<10); URINE WBC <10 /HPF (<10)
[2018-09-09 20:01] LABS: UR AMPHETAMINES QUAL PRESUMPTIVE POSITIVE (NONE DETECT); UR BARBITUATES QUAL NONE DETECTED (NONE DETECT); UR BENZODIAZEPIN QUAL PRESUMPTIVE POSITIVE (NONE DETECT); UR CANNABINOIDS QUAL NONE DETECTED (NONE DETECT); UR COCAINE QUAL NONE DETECTED (NONE DETECT); UR METHADONE QUAL NONE DETECTED (NONE DETECT); UR OPIATES QUAL NONE DETECTED (NONE DETECT); UR OXYCODONE QUAL NONE DETECTED (NONE DETECT); UR PCP QUAL NONE DETECTED (NONE DETECT)
[2018-09-09 20:15] LABS: BASO# 0.05 X1000 (0.0-0.2); BASO% 0.2 % (0.0-0.8); EOS# 0.05 X1000 (0.0-0.7); EOS% 0.2 % (0.0-10.0); HEMOGLOBIN 10.1 g/dL (12.0-16.0); IMM GRAN# 0.67 X1000 (0.0-0.04); IMM GRAN% 3.3 % (0.0-0.5); LYMPH# 1.62 X1000 (1.2-3.4); LYMPH% 7.9 % (20.5-51.1); MCH 28.5 PG (27-31); MCV 123.9 FL (81-99); MONO# 1.85 X1000 (0.11-0.59); MONO% 9.1 % (1.7-9.3); MPV 12.2 FL (7.4-10.4); NEUT% 79.3 % (42.2-75.2); PLT 363 X1000 (130-400); RBC 3.55 XMIL (4.2-5.4); RDW 13.9 % (11.5-14.5); WBC 20.44 X1000 (4.8-10.8)
[2018-09-09] MEDS ORDERED: HUMULIN R 100 UNIT in NS 100 ML IV SCH (20:15)
[2018-09-09 20:19] LABS: AGAP 37; ALB/GLOB RATIO 1.5; ALBUMIN 3.8 g/dL (3.5-5.0); ALKALINE PHOSPHATASE 141 U/L (32-104); BUN 38 mg/dL (8-22); CALCIUM 9.5 mg/dL (8.8-10.2); CHLORIDE 73 mmol/L (98-107); CK PROFILE 31 U/L (24-173); CREATININE 2.6 mg/dL (0.5-0.9); ESTIMATED GFR 20; GLUCOSE > 1500 mg/dL (70-104); GOT 46 U/L (10-30); GPT 65 U/L (10-36); POTASSIUM 4.8 mmol/L (3.5-5.1); SODIUM 114 mmol/L (136-145); TCO2 3 mmol/L (25-35); TOTAL BILIRUBIN 0.21 mg/dL (0.20-1.00); TOTAL PROTEIN 6.4 g/dL (6.3-8.3)
[2018-09-09] MEDS ORDERED: HUMULIN R IV ONE ×2 (20:19→23:30)
[2018-09-09 20:20] LABS: ACETONE SERUM MODERATE (NEGATIVE)
--- NOTE | 2018-09-09 20:20 | Diag Imaging Result Doc PS360 ---
EXAM: CHEST-1 VIEW INDICATION: possible sepsis TECHNIQUE: One view COMPARISON: 03/05/2018 FINDINGS: The lungs are grossly clear. There is no discrete pleural fluid collection or pneumothorax. The cardiomediastinal silhouette and central vasculature are grossly unremarkable. IMPRESSION: No evidence of acute pathology by plain radiograph. Electronically signed by German Aguirre 09/09/2018 8:17 PM
[2018-09-09] MEDS ORDERED: NS 1,000 ML ONE (20:29)
[2018-09-09] MEDS ORDERED: ZOFRAN IV ONE (20:31)
[2018-09-09] MEDS ORDERED: LEVOPHED 8 MG in D5 1/2 NS 250 ML IV SCH (20:45)
[2018-09-09 21:21] LABS: PHOSPHORUS 9.8 mg/dL (2.7-4.5)
--- NOTE | 2018-09-09 21:58 | HISTORY AND PHYSICAL ---
PRIMARY CARE PHYSICIAN: Unknown. CHIEF COMPLAINT: Confused HISTORY OF PRESENTING ILLNESS: 43-year-old female with a history of diabetes mellitus type 1, poor medical compliance, GERD and hyperlipidemia was brought to the emergency department due to patient being confused and having elevated blood glucose. The patient was evaluated the emergency department and she had labs drawn which did show she had a blood glucose greater than 1500. Clinically patient was in DKA. Subsequently she will require admission for further management. The patient is a poor historian. Most of the history is obtained from family members. PAST MEDICAL HISTORY: Include diabetes mellitus type 1, poor medical compliance, GERD, hyperlipidemia. PAST SURGICAL HISTORY: Cholecystectomy, tonsillectomy. ALLERGIES: No known drug allergies. CURRENT MEDICATIONS: Include Xanax 0.5 mg p.o. b.i.d., [place] 10 one p.o. q.6 hours, Levemir 20 units subcu b.i.d., pantoprazole 40 mg p.o. b.i.d., Carafate 1 g p.o. q.6 hours. SOCIAL HISTORY: Smokes a pack a day. History of social alcohol use. History of illicit drug use. FAMILY HISTORY: No history of coronary disease. REVIEW OF SYSTEM: Unable to obtain due to patient being altered. PHYSICAL EXAMINATION: GENERAL: The patient is moderately altered and confused. VITAL SIGNS: Temperature 97.5 degrees, pulse 103, respirations 24, blood pressure 84/44. HEENT: Atraumatic, normocephalic. Extraocular movements intact. NECK: No masses. CHEST: Clear to auscultation. CARDIOVASCULAR: Regular rate and rhythm. ABDOMEN: Soft. Positive bowel sounds. EXTREMITIES: No edema. NEUROLOGIC: She is awake, alert, she is somewhat confused. : No bladder distention. SKIN: Warm. LABORATORIES AND STUDIES: WBC 20.44, hemoglobin 10.1, hematocrit 44.0, platelets 363,000. Blood gas shows pH of 6.92. Sodium 114, potassium 4.8, chloride 73. CO2 is 3, glucose is greater than 1500. Tox screen is positive for amphetamines and benzodiazepines and moderate acetone. ASSESSMENT: A 43-year-old female with a history of diabetes mellitus type 1, poor medical compliance, gastroesophageal reflux disease and hyperlipidemia who was brought to the emergency department due to patient being altered. The patient was seen in the emergency department. She was found to be in diabetic ketoacidosis and she will require admission for further management . 1. Diabetic ketoacidosis. 2. Altered mental status. 3. Hyponatremia. 4. Leukocytosis. PLAN: 1. We will admit patient to ICU. INCOMPLETE REPORT -- DICTATION ENDS HERE. cc: Chris Otero MD MTDD
--- NOTE | 2018-09-09 22:04 | HISTORY AND PHYSICAL ---
CHIEF COMPLAINT: Altered mental status. HISTORY OF PRESENTING ILLNESS: A 43-year-old female with a history of diabetes mellitus type 1, poor medical compliance and GERD, who presented to the emergency department by family members due to patient being altered and confused. Patient previously had similar symptoms when her blood glucose was elevated and family had thought that this was the reason why she was confused. She was evaluated in the emergency department. She was found to be in DKA. Subsequently she will require admission for further management. The patient is a poor historian and most of the history is obtained from family members. PAST MEDICAL HISTORY: Include diabetes mellitus type 1, poor medical compliance, GERD, hyperlipidemia. PAST SURGICAL HISTORY: Cholecystectomy, tonsillectomy. ALLERGIES: No known drug allergies. MEDICATIONS CURRENT: As listed in medication reconciliation sheet. SOCIAL HISTORY: Smoking 1 pack a day. History of social alcohol use. History of illicit drug use. FAMILY HISTORY: No history of coronary disease. REVIEW OF SYSTEMS: Unable to elicit. PHYSICAL EXAMINATION: GENERAL: The patient is moderately confused but she is without any respiratory distress. VITAL SIGNS: Temperature 97.5 degrees, pulse 103, respirations 24, blood pressure 85/46. HEENT: Atraumatic, normocephalic. PERRLA. NECK: No masses. CHEST: Clear to auscultation. CARDIOVASCULAR: Regular rate and rhythm. ABDOMEN: Soft. Positive bowel sounds. EXTREMITIES: No edema. NEUROLOGIC: She is awake and arousable. She is mildly confused. GENITOURINARY: No bladder distention. SKIN: Warm. LABORATORIES AND STUDIES: Tox screen shows amphetamines, benzodiazepines and acetone positive. WBCs 20.44, hemoglobin 10.1, hematocrit 44.0, platelets 363,000, pH is 6.92. Sodium 114, potassium 4.8, chloride 73, CO2 is 3, BUN is 38, creatinine is 2.6, glucose is greater than 1500. Chest x-ray is negative. ASSESSMENT: A 43-year-old female with a history of diabetes mellitus type 1, poor medical compliance, gastroesophageal reflux disease and hyperlipidemia who presented to emergency department due to mental status changes. She was moderately altered. She was found to be in diabetic ketoacidosis during evaluation in the emergency department. Subsequently she will require admission for further management 1. Diabetic ketoacidosis. 2. Altered mental status. 3. Hyponatremia and other electrolyte disorder. 4. Leukocytosis. 5. Acute kidney injury. PLAN: 1. We will admit patient to ICU. 2. We will continue patient on DKA protocol. 3. We will check blood cultures. Start patient on IV antibiotics. 4. Monitor electrolytes. 5. Monitor renal function. 6. We will put patient on DVT prophylaxis SCD. 7. The patient's condition is guarded. 8. We will continue to follow and reassess. Make further recommendation based on patient's clinical course. cc: Chris Otero MD
[2018-09-09] MEDS ORDERED: ZOFRAN IV PRN (22:28)
[2018-09-09] MEDS ORDERED: ROCEPHIN 1 GM in NS 50 ML IV SCH (23:08)
[2018-09-09] MEDS ORDERED: POTASSIUM CHLORIDE 20% LIQUID PO PRN (23:30)
[2018-09-09] MEDS ORDERED: SODIUM PHOSPHATE 30 MMOL in D5W 250 ML IV PRN (23:30)
[2018-09-09] MEDS ORDERED: SODIUM BICARBONATE 8.4% 100 MEQ in STERILE WATER INJ. 500 ML IV PRN (23:30)
[2018-09-09] MEDS ORDERED: D5 NS 1,000 ML IV SCH (23:30)
[2018-09-09] MEDS ORDERED: D50W SYRINGE IV PRN (23:30)
[2018-09-09] MEDS ORDERED: MAGNESIUM SULFATE 2 GM/S.W.I. 2 GM/50 ML IVPB IV PRN (23:30)
[2018-09-09] MEDS ORDERED: POTASSIUM CHLORIDE 40 MEQ/SWI 40 MEQ/100 ML IVPB IV PRN (23:30)
[2018-09-09] MEDS ORDERED: POTASSIUM CHLORIDE 20 MEQ/SWI 20 MEQ/100 ML IVPB IV PRN (23:30)
[2018-09-10] MEDS ORDERED: SODIUM CHLORIDE 0.9% INJ SCH (00:15)
[2018-09-10] MEDS ORDERED: ATIVAN IV ONE ×2 (00:17→21:54)
[2018-09-10] MEDS: NS 1,000 ML IV SCH ×8 (00:47→10:43)
[2018-09-10] MEDS: PROTONIX IV SCH ×2 (00:48→11:56)
[2018-09-10 01:07] LABS: BASO% 0.4 % (0.0-0.8); EOS# 0.04 X1000 (0.0-0.7); EOS% 0.2 % (0.0-10.0); HEMATOCRIT 35.9 % (37.0-47.0); HEMOGLOBIN 11.6 g/dL (12.0-16.0); IMM GRAN# 0.65 X1000 (0.0-0.04); IMM GRAN% 2.8 % (0.0-0.5); LYMPH# 4.22 X1000 (1.2-3.4); LYMPH% 17.9 % (20.5-51.1); MCH 29.1 PG (27-31); MCHC 32.3 g/dL (33-37); MCV 90.2 FL (81-99); MONO# 1.56 X1000 (0.11-0.59); MONO% 6.6 % (1.7-9.3); MPV 11.7 FL (7.4-10.4); NEUT# 16.99 X1000 (1.4-6.5); NEUT% 72.1 % (42.2-75.2); PLT 269 X1000 (130-400); RBC 3.98 XMIL (4.2-5.4); RDW 13.6 % (11.5-14.5); WBC 23.56 X1000 (4.8-10.8)
--- NOTE | 2018-09-10 01:30 | PROVIDER DOCUMENTATION ---
This chart was entered by Berto Ramos Scribe, acting as scribe for John Liao MD. HPI-Neurological Disorder - General Chief Complaint: Altered Mental Status Stated Complaint: "OUT OF IT" PER MOM Time Seen by Provider: 09/09/18 18:41 Source: patient, family Unable to obtain history due to:: altered Allergies/Adverse Reactions: Patient Allergies Allergy/AdvReac Type Severity Reaction Status Date / Time No Known Allergies Allergy Verified 07/04/17 08:25 Home Medications: Home Medication List Medication Instructions Recorded Confirmed Last Taken Type Alprazolam [Xanax] 0.5 mg PO BID PRN PRN #20 tab 07/07/17 Unknown Rx Clotrimazole 1% Cream [Lotrimin 1% 1 gm TOP BID tube 09/09/17 Unknown Rx Cream] Hydrocodone/APAP 10 mg/325 mg 1 ea PO Q4H PRN PRN #15 tab 03/08/18 Unknown Rx [Marshall-10] Insulin Detemir [Levemir] 20 unit SUBQ BID #0 insuln.pen 03/08/18 Unknown Rx Pantoprazole Sodium 40 mg PO BID 30 Days #60 tablet.dr 03/08/18 Unknown Rx Polyethylene Glycol 3350 [Miralax] 17 gm PO BID #20 powder, packet 03/08/18 Unknown Rx Sucralfate [Carafate Liquid] 1 gm PO Q6HR 30 Days #120 udc 03/08/18 Unknown Rx - History of Present Illness-Neuro Nature of Presenting Problem: Pt is a 43 yof who presents to the ED with a CC of altered mental status. Pt's history, ROS, and exam was limited due to pt's condition. Pt is accompanied with her [id number] who does not know all of her history. Pt's [id number] states the pt is an uncontrolled diabetic. Pt's [id number] states the last time she was in the hospital her blood sugar was over 1400. The pt's yarfox-[id number] states the pt was found by her prior to arrival and she was "out of it" and describes the pt as confused. Severity: reports: moderate Onset/Duration: reports: unsure Timing: reports: still present Context: reports: found unresponsive by family Character of Altered Mental Status: reports: confused, unresponsive Character of Deficits: reports: altered sensation Cognitive Baseline: poor alertness Review of Systems - Adult - REVIEW OF SYSTEMS - ADULT ROS:: unobtainable per condition Constitutional: reports: see HPI Ears, Nose, Mouth & Throat: reports: no symptoms reported Gastrointestinal: reports: no symptoms reported Integumentary: reports: no symptoms reported Neurological: reports: see HPI Psychiatric: reports: see HPI Endocrine: reports: no symptoms reported Hematologic/Lymphatic: reports: no symptoms reported Allergic/Immunologic: reports: no symptoms reported Past History - Adult - PAST MEDICAL HISTORY-ADULT Review of Records: reports: Old Records Reviewed, Nursing Assessment Review Major Childhood Illnesses: reports: denies history Cardiovascular: reports: hyperlipidemia Respiratory: reports: denies history Gastrointestinal: reports: GERD Obstetrical/Gynecological: reports: denies history Genitourinary: reports: kidney disease, chronic UTI's, other (ARF) Musculoskeletal: reports: denies history Neurological: reports: Seizures/Epilepsy Psychiatric: reports: anxiety, depression Endocrine/Immune: reports: Diabetes Other Conditions: reports: denies history Additional History: Frequent ER visits - PRIOR SURGERIES/PROCEDURES Surgical/Procedure History: reports: cholecystectomy, BTL, , tonsillectomy - PRIOR HOSPITALIZATIONS Prior Hospitalizations: reports: for similar symptoms - IMMUNIZATION STATUS Childhood Immunizations: See Nurse Assessment Flu Vaccine: See Nurse Assessment - FAMILY HISTORY Family History: diabetes - SOCIAL HISTORY Smoking: cigarettes, less than 1 pack/day (1/2 ppd) Substance Use: none/never, denies Alcohol Use Frequency: never Physical Exam- Neurological - Physical Exam-Neuro Initial Vital Signs Reviewed: Yes General Appearance: moderate distress, lethargic, obtunded Eye Exam: bilateral eye: normal inspection, PERRL HENMT: normocephalic/atraumatic. negative: moist mucous membranes (dry mucous membrane) Head Injury: no evidence of injury Neck: non-tender, supple Respiratory: lungs clear, normal breath sounds Cardiovascular: normal peripheral pulses, regular rate, rhythm, tachycardia Abdominal Exam: normal bowel sounds, non tender, soft Extremity: negative: erythema, swelling [employer] Exam: other (Unable to assess due to pt's condition.) Motor/Sensory: other (Unable to assess due to pt's condition.) Neurologic: other (GCS 9 Unable to fully assess due to pt's condition.) Psych/Mental Status: disoriented x 3 - Glascow Coma Scale Best Eye Response: (2) open to pain Best Verbal Response: (2) incomprehsible sounds Best Motor Response: (5) localizes to pain (GCS 9) Progress - PLAN OF CARE/RESULTS Progress/Plan/Lab Results: Vital Signs - 8 hr 09/09/18 18:30 09/09/18 18:41 09/09/18 18:42 Temperature 97.5 F L Pulse Rate 103 H 105 H 103 H Respiratory Rate 24 21 22 Blood Pressure 54/34 74/45 O2 Sat by Pulse Oximetry 100 100 09/09/18 18:50 09/09/18 18:55 09/09/18 19:00 Temperature Pulse Rate 100 H 102 H 102 H Respiratory Rate 20 26 H 27 H Blood Pressure 84/44 O2 Sat by Pulse Oximetry 97 100 100 09/09/18 19:01 09/09/18 19:06 09/09/18 19:10 Temperature Pulse Rate 103 H 101 H 100 H Respiratory Rate 20 23 23 Blood Pressure 85/46 77/44 O2 Sat by Pulse Oximetry 84 L 100 100 09/09/18 19:11 09/09/18 19:16 09/09/18 19:20 Temperature Pulse Rate 98 H 100 H 99 H Respiratory Rate 22 25 H 21 Blood Pressure 80/44 77/43 O2 Sat by Pulse Oximetry 100 100 100 09/09/18 19:21 09/09/18 19:26 09/09/18 19:30 Temperature Pulse Rate 99 H 97 H 98 H Respiratory Rate 22 18 15 Blood Pressure 77/42 76/48 O2 Sat by Pulse Oximetry 100 100 100 09/09/18 19:31 09/09/18 19:34 09/09/18 19:36 Temperature Pulse Rate 97 H 95 H 95 H Respiratory Rate 22 21 23 Blood Pressure 81/43 78/43 76/43 O2 Sat by Pulse Oximetry 100 100 100 09/09/18 19:40 09/09/18 19:41 09/09/18 19:46 Temperature Pulse Rate 95 H 96 H 95 H Respiratory Rate 22 28 H 25 H Blood Pressure 71/48 74/44 O2 Sat by Pulse Oximetry 95 98 100 09/09/18 19:47 09/09/18 19:50 09/09/18 19:51 Temperature Pulse Rate 94 H 93 H 93 H Respiratory Rate 29 H 25 H 26 H Blood Pressure 76/45 79/45 77/46 O2 Sat by Pulse Oximetry 100 100 100 09/09/18 19:52 09/09/18 19:56 09/09/18 20:00 Temperature Pulse Rate 93 H 93 H 92 H Respiratory Rate 29 H 23 26 H Blood Pressure 80/31 O2 Sat by Pulse Oximetry 100 75 L 100 09/09/18 20:01 09/09/18 20:16 09/09/18 20:20 Temperature Pulse Rate 92 H 92 H 93 H Respiratory Rate 25 H 22 27 H Blood Pressure 78/45 82/44 O2 Sat by Pulse Oximetry 100 100 99 09/09/18 20:21 09/09/18 20:26 09/09/18 20:30 Temperature Pulse Rate 93 H 92 H 92 H Respiratory Rate 25 H 23 28 H Blood Pressure 76/45 76/44 O2 Sat by Pulse Oximetry 100 100 100 09/09/18 20:31 09/09/18 20:36 09/09/18 20:38 Temperature Pulse Rate 92 H 91 H 90 Respiratory Rate 24 27 H 22 Blood Pressure 80/44 71/40 72/43 O2 Sat by Pulse Oximetry 100 99 100 09/09/18 20:40 09/09/18 20:41 09/09/18 20:46 Temperature Pulse Rate 89 90 92 H Respiratory Rate 18 19 21 Blood Pressure 80/40 81/42 O2 Sat by Pulse Oximetry 100 100 100 09/09/18 20:50 09/09/18 20:51 09/09/18 20:56 Temperature Pulse Rate 90 90 90 Respiratory Rate 21 19 19 Blood Pressure 75/42 78/47 O2 Sat by Pulse Oximetry 100 100 100 09/09/18 21:00 09/09/18 21:01 09/09/18 21:06 Temperature Pulse Rate 90 91 H 92 H Respiratory Rate 19 15 19 Blood Pressure 91/50 93/52 O2 Sat by Pulse Oximetry 100 100 100 09/09/18 21:10 09/09/18 21:11 09/09/18 21:16 Temperature Pulse Rate 93 H 93 H 92 H Respiratory Rate 18 30 H 20 Blood Pressure 84/50 99/52 O2 Sat by Pulse Oximetry 100 100 100 09/09/18 21:20 09/09/18 21:21 09/09/18 21:26 Temperature Pulse Rate 93 H 93 H 94 H Respiratory Rate 19 17 19 Blood Pressure 101/59 98/62 O2 Sat by Pulse Oximetry 100 100 100 09/09/18 21:30 09/09/18 21:31 09/09/18 21:36 Temperature Pulse Rate 94 H 94 H 96 H Respiratory Rate 18 21 24 Blood Pressure 99/59 82/66 O2 Sat by Pulse Oximetry 100 100 100 09/09/18 21:40 09/09/18 21:41 09/09/18 21:46 Temperature Pulse Rate 96 H 96 H 95 H Respiratory Rate 20 22 16 Blood Pressure 100/57 107/60 O2 Sat by Pulse Oximetry 100 100 100 09/09/18 21:50 09/09/18 21:51 09/09/18 21:56 Temperature Pulse Rate 96 H 95 H 95 H Respiratory Rate 30 H 22 19 Blood Pressure 97/58 93/54 O2 Sat by Pulse Oximetry 100 100 100 09/09/18 22:00 09/09/18 22:01 Temperature Pulse Rate 95 H 95 H Respiratory Rate 15 13 Blood Pressure 103/65 O2 Sat by Pulse Oximetry 100 100 Bedside Urine ED: Urine Bedside Start: 09/09/18 18:42 Freq: ORDERED Status: Active Protocol: Activity Type Activity Date Activity User E-Sign Co-Sign Detail Recorded Client Recorded Date Recorded By Document 09/09/18 19:36 [id number] 09/09/18 19:38 [id number] 09/09/18 19:36 Point of Care [Bedside Point of Care] -Lot # [id number] - Results Negative -Control Line Visible? Yes Laboratory Results - last 24 hr 09/09/18 09/09/18 09/09/18 18:35 18:36 19:10 WBC 20.44 H RBC 3.55 L Hgb 10.1 L Hct 44.0 MCV 123.9 H MCH 28.5 MCHC 23.0 L RDW Std Deviation 13.9 Plt Count 363 MPV 12.2 H Immature Gran % (Auto) 3.3 H Neut % (Auto) 79.3 H Lymph % (Auto) 7.9 L Wetzel % (Auto) 9.1 Eos % (Auto) 0.2 Baso % (Auto) 0.2 Immature Gran # (Auto) 0.67 H Neut # (Auto) 16.20 H Lymph # (Auto) 1.62 Wetzel # (Auto) 1.85 H Eos # (Auto) 0.05 Baso # (Auto) 0.05 PT INR PTT (Actin FS) Specimen Type ARTERIAL Sample Site R RADIAL pH 6.92 L* pCO2 12 L* pO2 132 H HCO3 2.8 L Base Excess -28.3 L Oxyhemoglobin 96.4 ABG O2 Sat (Calculated) 14.6 L ABG O2 Saturation 98.9 ABG Carboxyhemoglobin 1.30 ABG Methemoglobin 1.2 Manuel Test YES A-a O2 Difference 3.0 Total Hemoglobin 10.6 L Lactate 2.60 H Blood Gas Modality ROOM AIR FiO2 % 21.0 Sodium Potassium Chloride Carbon Dioxide Anion Gap BUN Creatinine Estimated GFR/1.73 m2 BUN/Creatinine Ratio Glucose POC Glucose 500 H D Calculated Osmolality Calcium Phosphorus Magnesium Total Bilirubin AST ALT Alkaline Phosphatase Creatine Kinase Troponin T Total Protein Albumin Globulin Albumin/Globulin Ratio Plasma Lactate Urine Source Urine Color Urine Turbidity Urine pH Ur Specific [place] Urine Protein Ur Glucose (Stick) Ur Ketones (Stick) Urine Blood Urine Nitrite Urine Bilirubin Urobilinogen Dipstick Urine Leukocytes Urine WBC (Auto) Urine RBC (Auto) U Epithel Cells (Auto) Urine Bacteria (Auto) Urine Opiates Screen Ur Oxycodone Screen Ur Methadone, Qual Ur Barbiturates Screen Ur Phencyclidine Scrn Ur Amphetamines Screen U Benzodiazepines Scrn Urine Cocaine Screen U Cannabinoids Screen Acetone Level 09/09/18 09/09/18 09/09/18 19:10 19:10 19:10 WBC RBC Hgb Hct MCV MCH MCHC RDW Std Deviation Plt Count MPV Immature Gran % (Auto) Neut % (Auto) Lymph % (Auto) [place] % (Auto) Eos % (Auto) Baso % (Auto) Immature Gran # (Auto) Neut # (Auto) Lymph # (Auto) Wetzel # (Auto) Eos # (Auto) Baso # (Auto) PT 16.6 H INR 1.24 PTT (Actin FS) 29.3 Specimen Type Sample Site pH pCO2 pO2 HCO3 Base Excess Oxyhemoglobin ABG O2 Sat (Calculated) ABG O2 Saturation ABG Carboxyhemoglobin ABG Methemoglobin Manuel Test A-a O2 Difference Total Hemoglobin Lactate Blood Gas Modality FiO2 % Sodium 114 L* Potassium 4.8 Chloride 73 L Carbon Dioxide 3 L Anion Gap 37 BUN 38 H Creatinine 2.6 H Estimated GFR/1.73 m2 20 BUN/Creatinine Ratio 15 Glucose > 1500 H* POC Glucose Calculated Osmolality Not Reportable Calcium 9.5 Phosphorus Magnesium Total Bilirubin 0.21 AST 46 H ALT 65 H Alkaline Phosphatase 141 H Creatine Kinase 31 Troponin T < 0.010 Total Protein 6.4 Albumin 3.8 Globulin 2.6 Albumin/Globulin Ratio 1.5 Plasma Lactate Urine Source Urine Color Urine Turbidity Urine pH Ur Specific [place] Urine Protein Ur Glucose (Stick) Ur Ketones (Stick) Urine Blood Urine Nitrite Urine Bilirubin Urobilinogen Dipstick Urine Leukocytes Urine WBC (Auto) Urine RBC (Auto) U Epithel Cells (Auto) Urine Bacteria (Auto) Urine Opiates Screen Ur Oxycodone Screen Ur Methadone, Qual Ur Barbiturates Screen Ur Phencyclidine Scrn Ur Amphetamines Screen U Benzodiazepines Scrn Urine Cocaine Screen U Cannabinoids Screen Acetone Level MODERATE A 09/09/18 09/09/18 09/09/18 19:10 19:10 19:35 WBC RBC Hgb Hct MCV MCH MCHC RDW Std Deviation Plt Count MPV Immature Gran % (Auto) Neut % (Auto) Lymph % (Auto) [place] % (Auto) Eos % (Auto) Baso % (Auto) Immature Gran # (Auto) Neut # (Auto) Lymph # (Auto) Wetzel # (Auto) Eos # (Auto) Baso # (Auto) PT INR PTT (Actin FS) Specimen Type Sample Site pH pCO2 pO2 HCO3 Base Excess Oxyhemoglobin ABG O2 Sat (Calculated) ABG O2 Saturation ABG Carboxyhemoglobin ABG Methemoglobin Manuel Test A-a O2 Difference Total Hemoglobin Lactate Blood Gas Modality FiO2 % Sodium Potassium Chloride Carbon Dioxide Anion Gap BUN Creatinine Estimated GFR/1.73 m2 BUN/Creatinine Ratio Glucose POC Glucose Calculated Osmolality Calcium Phosphorus 9.8 H Magnesium 3.0 H Total Bilirubin AST ALT Alkaline Phosphatase Creatine Kinase Troponin T Total Protein Albumin Globulin Albumin/Globulin Ratio Plasma Lactate 2.5 H Urine Source CLEAN CATCH Urine Color YELLOW Urine Turbidity CLEAR Urine pH 5.0 Ur Specific [place] 1.023 Urine Protein NEGATIVE Ur Glucose (Stick) >1000 A Ur Ketones (Stick) 20 A Urine Blood NEGATIVE Urine Nitrite NEGATIVE Urine Bilirubin NEGATIVE Urobilinogen Dipstick NORMAL Urine Leukocytes NEGATIVE Urine WBC (Auto) <10 Urine RBC (Auto) <10 U Epithel Cells (Auto) <10 Urine Bacteria (Auto) 1+ Urine Opiates Screen Ur Oxycodone Screen Ur Methadone, Qual Ur Barbiturates Screen Ur Phencyclidine Scrn Ur Amphetamines Screen U Benzodiazepines Scrn Urine Cocaine Screen U Cannabinoids Screen Acetone Level 09/09/18 09/09/18 09/09/18 19:35 20:22 21:28 WBC RBC Hgb Hct MCV MCH MCHC RDW Std Deviation Plt Count MPV Immature Gran % (Auto) Neut % (Auto) Lymph % (Auto) [place] % (Auto) Eos % (Auto) Baso % (Auto) Immature Gran # (Auto) Neut # (Auto) Lymph # (Auto) [place] # (Auto) Eos # (Auto) Baso # (Auto) PT INR PTT (Actin FS) Specimen Type Sample Site pH pCO2 pO2 HCO3 Base Excess Oxyhemoglobin ABG O2 Sat (Calculated) ABG O2 Saturation ABG Carboxyhemoglobin ABG Methemoglobin Manuel Test A-a O2 Difference Total Hemoglobin Lactate Blood Gas Modality FiO2 % Sodium Potassium Chloride Carbon Dioxide Anion Gap BUN Creatinine Estimated GFR/1.73 m2 BUN/Creatinine Ratio Glucose POC Glucose 500 H 500 H Calculated Osmolality Calcium Phosphorus Magnesium Total Bilirubin AST ALT Alkaline Phosphatase Creatine Kinase Troponin T Total Protein Albumin Globulin Albumin/Globulin Ratio Plasma Lactate Urine Source Urine Color Urine Turbidity Urine pH Ur Specific [place] Urine Protein Ur Glucose (Stick) Ur Ketones (Stick) Urine Blood Urine Nitrite Urine Bilirubin Urobilinogen Dipstick Urine Leukocytes Urine WBC (Auto) Urine RBC (Auto) U Epithel Cells (Auto) Urine Bacteria (Auto) Urine Opiates Screen NONE DETECTED Ur Oxycodone Screen NONE DETECTED Ur Methadone, Qual NONE DETECTED Ur Barbiturates Screen NONE DETECTED Ur Phencyclidine Scrn NONE DETECTED Ur Amphetamines Screen PRESUMPTIVE POSITIVE A U Benzodiazepines Scrn PRESUMPTIVE POSITIVE A Urine Cocaine Screen NONE DETECTED U Cannabinoids Screen NONE DETECTED Acetone Level Orders Category Date Time Status Admit [facility] Routine AdmDCTranf 09/09/18 23:08 Active Activity - Up with Assistance ORDERED Care 09/09/18 23:08 Active Apply Mechanical Device [QM] ORDERED Care 09/09/18 23:08 Active Cardiac Monitoring DIRECTED Care 09/09/18 18:35 Completed ED: Urine Bedside ORDERED Care 09/09/18 18:42 Active Fingerstick Blood Sugar [FSBS/Accucheck Result] RTQ1H Care 09/09/18 20:04 Active IV Insertion ORDERED Care 09/09/18 18:35 Completed Intake and Output-Strict ORDERED Care 09/09/18 23:08 Active Restraint Initiate NonViolent ONCE Care 09/09/18 20:23 Active Use DKA Protocol (paper) ORDERED Care 09/09/18 21:40 Active Vital Signs Order Q 4-HR ASSESS Care 09/09/18 23:08 Active Z-Document. for Tele Applied ORDERED Care 09/09/18 23:08 Active NPO Diet 09/09/18 23:09 Active CHEST-1 VIEW [RAD] Stat Exams 09/09/18 18:35 Completed ABG [RESP] Routine Lab 09/09/18 18:36 Completed ACETONE SERUM [CHEM] Stat Lab 09/09/18 19:10 Completed BLOOD CULTURE [BLDCUL] Stat Lab 09/09/18 22:45 Results CBC WITH DIFF [HEME] Stat Lab 09/09/18 19:10 Completed CK PROFILE [SP CHEM] Stat Lab 09/09/18 19:10 Completed COMPREHENSIVE METABOLIC PANEL [CHEM] Stat Lab 09/09/18 19:10 Completed LACTATE, PLASMA [CHEM] Lab 09/09/18 19:10 Completed LACTATE, PLASMA [CHEM] Lab 09/09/18 22:45 Completed MAGNESIUM [CHEM] Stat Lab 09/09/18 19:10 Completed PHOSPHORUS [CHEM] Stat Lab 09/09/18 19:10 Completed PROTIME WITH INR [COAG] Stat Lab 09/09/18 19:10 Completed PTT [COAG] Stat Lab 09/09/18 19:10 Completed TROPONIN T Stat Lab 09/09/18 19:10 Completed URINALYSIS W/POSS RFLX CULT [URINALYSIS] Stat Lab 09/09/18 19:35 Completed URINE DRUG SCREEN Stat Lab 09/09/18 19:35 Completed 0.9% Sodium Chloride Inj [Ns] 1,000 ml Med 09/09/18 20:29 Discontinued .ROUTE As directed 0.9% Sodium Chloride Inj [Ns] 1,000 ml Med 09/09/18 19:14 Discontinued 0.9% Sodium Chloride Inj [Ns] 1,000 ml IV 999 mls/hr 0.9% Sodium Chloride Inj [Ns] 1,000 ml Med 09/09/18 20:25 Active IV 200 mls/hr 0.9% Sodium Chloride Inj [Ns] 1,000 ml Med 09/09/18 19:15 Discontinued IV 999 mls/hr 0.9% Sodium Chloride Inj [Ns] 1,000 ml Med 09/09/18 20:41 Discontinued IV 999 mls/hr 0.9% Sodium Chloride Inj [Ns] 100 ml Med 09/09/18 20:15 Discontinued Insulin Human Regular [Humulin R] 100 unit IV Per Protocol mls/hr 0.9% Sodium Chloride Inj [Ns] 2,000 ml Med 09/09/18 19:19 Discontinued .ROUTE As directed CefTRIAXONE [Rocephin] 1 gm Med 09/09/18 23:08 Active 0.9% Sodium Chloride Inj [Ns] 50 ml IV Q24H Dextrose 5%-0.45% NaCl Inj [D5 1/ Ns] 250 ml Med 09/09/18 20:45 Discontinued Norepinephrine [Levophed] 8 mg IV As Directed mls/hr Insulin Human Regular [Humulin R] Med 09/09/18 20:19 Discontinued 10 unit IV NOW ONE Ondansetron [Zofran] Med 09/09/18 20:31 Discontinued 8 mg IV NOW ONE Oxygen Device Stat Oth 09/09/18 18:35 Completed Telemetry [OM.EQ] Routine Oth 09/09/18 23:08 Active Transfer/Admit Order [TRANSFER] Routine Transfer 09/09/18 21:36 Completed Pt with AMS and hypotension on arrival, EJ line obtained and NS started, DKA suspected early and DKA protocol initiated. BP improved slightly after 2 L NS but MAP continue being in 50s, LEVOPHED ordered. Pt care, assessment and plan discussed with the attending physician Dr. Franklin and he agree with the plan as documented. Result Diagrams: 09/10/18 00:01 09/09/18 19:10 - EKG 1 Time of EKG reading by physician:: 18:40 EKG Read and Signed by:: John Liao EKG Interpretation (*Must complete 3 of following elements*): Abnormal (Sinus tachycardia; Nonspecific ST and T wave abnormality) Rate: 104 Rhythm: Sinus tachycardia [place]: normal QRS: normal [place] Interval: normal ST Wave: non-specific ST changes Comments: Abnormal ECG - XRAY 1 XRAY Study: Chest ( EXAM: CHEST-1 VIEW INDICATION: possible sepsis TECHNIQUE: One view COMPARISON: 03/05/2018 FINDINGS: The lungs are grossly clear. There is no discrete pleural fluid collection or pneumothorax. The cardiomediastinal silhouette and central vasculature are grossly unremarkable. IMPRESSION: No evidence of acute pathology by plain radiograph. Electronically signed by German Aguirre 09/09/2018 8:17 PM) Impression: See EMR Report - CONSULTS/PCP/HOSPITALIST Notification #1 *Consult/PCP/Hospitalist*: Dr. Otero (Hospitalist) Time Discussed: 20:39 Reason/Comments: Made aware of pt and accepted admission. Consult Disposition: Admit Departure - Departure Date of Disposition Decision: 09/09/18 Time of Disposition Decision: 20:40 DIAGNOSIS: JUNE (acute kidney injury), Amphetamine abuse DKA, type 1 Qualifiers: Diabetes mellitus complication detail: without coma Qualified Code(s): E10.10 - Type 1 diabetes mellitus with ketoacidosis without coma Leukocytosis Qualifiers: Leukocytosis type: other Qualified Code(s): D72.828 - Other elevated white blood cell count Disposition: ADMITTED INPATIENT 09 Certified Medical Emergency: Emergent Condition: Critical - Critical Care Note This patient required my direct & personal management of CC.: Yes Total Time (mins): 35 Critical Care Statement: This patient required my direct personal management to treat or rule out processes, the absence of which, could potentiallly result in sudden, clinically significant life or limb threatening deterioration. Attestation - Physician/ KIAN Attestation Patient care was provided by Advanced Practice Provider:: No The physician spent face to face time with patient:: Yes Advanced Practice Provider documentation review:: Supervising physician onsite and consulted in the evaluation and care of this patient. The physician did have a face to face encounter with the patient. This chart was documented by the indicated scribe, (Berto Ramos Scribe) and accurately reflects the services I performed and decisions made by me, John Castro MD, as attested by the provider's signature.
[2018-09-10 01:44] LABS: AGAP 29; BUN 33 mg/dL (8-22); CALCIUM 8.9 mg/dL (8.8-10.2); CHLORIDE 102 mmol/L (98-107); COSMO 337; ESTIMATED GFR 27; MAGNESIUM 2.5 mg/dL (1.5-2.7); PHOSPHORUS 2.6 mg/dL (2.7-4.5); SODIUM 136 mmol/L (136-145); TCO2 5 mmol/L (25-35)
[2018-09-10 01:48] LABS: GLUCOSE > 1500 mg/dL (70-104)
[2018-09-10] MEDS: HUMULIN R 100 UNIT in NS 99 ML IV SCH ×2 (02:15→05:51)
[2018-09-10 04:45] LABS: BLOOD TYPE ARTERIAL; SAMPLE BLOOD
[2018-09-10 04:46] LABS: ALLEN TEST YES; BE -9.7 mmoll (-3.0-3.0); HCO3-(ACT) 17.4 mmoll (20.0-26.0); METHB 0.8 % (0.0-1.5); MODALITY ROOM AIR; O2(CT) 12.9 mL/dL (15.0-23.0); O2HB 96.3 % (95.0-99.0); PCO2(98.6) 32 mmHg (35-45); PO2(98.6) 96 mmHg (60-100); SAO2 98.2 % (95.0-100.0); THB 9.4 g/dL (11.5-17.4)
[2018-09-10 04:59] LABS: BASO# 0.03 X1000 (0.0-0.2); BASO% 0.1 % (0.0-0.8); EOS# 0.02 X1000 (0.0-0.7); EOS% 0.1 % (0.0-10.0); HEMATOCRIT 27.5 % (37.0-47.0); HEMOGLOBIN 9.6 g/dL (12.0-16.0); IMM GRAN# 0.53 X1000 (0.0-0.04); IMM GRAN% 2.3 % (0.0-0.5); LYMPH# 3.72 X1000 (1.2-3.4); LYMPH% 16.2 % (20.5-51.1); MCH 28.2 PG (27-31); MCHC 34.9 g/dL (33-37); MCV 80.6 FL (81-99); MONO# 1.16 X1000 (0.11-0.59); MPV 10.4 FL (7.4-10.4); NEUT# 17.55 X1000 (1.4-6.5); NEUT% 76.3 % (42.2-75.2); PLT 293 X1000 (130-400); RBC 3.41 XMIL (4.2-5.4); RDW 12.5 % (11.5-14.5); WBC 23.01 X1000 (4.8-10.8)
[2018-09-10 06:30] LABS: CALCIUM 8.6 mg/dL (8.8-10.2); CREATININE 1.3 mg/dL (0.5-0.9); MAGNESIUM 1.9 mg/dL (1.5-2.7)
[2018-09-10 06:31] LABS: POTASSIUM 2.3 mmol/L (3.5-5.1)
[2018-09-10 06:32] LABS: PHOSPHORUS 0.4 mg/dL (2.7-4.5)
[2018-09-10] MEDS: POTASSIUM CHLORIDE 20 MEQ/SWI 20 MEQ/100 ML IVPB IV SCH ×2 (06:42→09:04)
--- NOTE | 2018-09-10 09:04 | EKG Report ---
Test Performed on : 09/09/2018 6:39:03 PM Test Reason : ED. NO EKG ORDER FOR MUSE Blood Pressure : / mmHG Vent. Rate : 104 BPM Atrial Rate : 104 BPM P-R Int : 144 ms QRS Dur : 090 ms QT Int : 354 ms P-R-T Axes : 080 083 -25 degrees QTc Int : 465 ms Sinus tachycardia. Nonspecific ST and T wave abnormality Abnormal ECG When compared with ECG of 02-MAR-2018 06:32, Sinus rhythm. has replaced Junctional rhythm. ST no longer elevated in Inferior leads Non-specific change in ST segment in Lateral leads T wave inversion now evident in Inferior leads Nonspecific T wave abnormality, worse in Anterior leads Unconfirmed Result
[2018-09-10] MEDS ORDERED: D5 1/2 NS 1,000 ML IV SCH (11:00)
--- NOTE | 2018-09-10 11:47 | Diag Imaging Result Doc PS360 ---
EXAM: CHEST/ABD TUBE PLACEMENT 09/10/2018 HISTORY: NGT placement TECHNIQUE: AP portable supine at 1128 COMMENT: There is an NG tube with its tip in the fundus of the stomach. Considering differences in technique there has been no significant change since the earlier study of 09/09/2018. IMPRESSION: NG tube in the stomach. Electronically signed by Steven Haines 09/10/2018 11:44 AM
[2018-09-10] MEDS: POTASSIUM CHLORIDE 20% LIQUID NG SCH ×2 (11:53→14:25)
--- NOTE | 2018-09-10 12:15 | PROGRESS NOTE ---
DATE: 09/10/2018 OVERNIGHT EVENTS: Ms. Mallory is a 43-year-old lady who was admitted for altered mental status and was found to have diabetic ketoacidosis. Apparently, patient does have history of diabetic ketoacidosis. However, the circumstances in which diabetic ketoacidosis has developed is unclear. SUBJECTIVE: The patient is lethargic. Keeps eyes closed. Does not verbalize anything. On physical stimuli, she starts shaking. VITAL SIGNS: She has been afebrile with temperature of 97.3 degrees, pulse of 103, respiratory rate 12, blood pressure 116/78, saturating 96% on room air. PHYSICAL EXAMINATION: HEENT: Oral cavity has extremely poor dentition with what appears to be dried flecks off vomiting. Pupils are bilaterally equal, reacting to light. Lungs: Air entry bilaterally equal. No wheeze, rhonchi, crackles. Cardiovascular: S1, S2 normal. Tachycardic. No murmur, rub, or gallop. Abdomen: Soft. She does not allow proper examination. However, it does appear that she has mild generalized tenderness. Extremities: She has bilateral upper and lower extremity mild edema, especially upper extremities. LABORATORY DATA: Suggestive of persistent leukocytosis, normocytic anemia, normal platelet count. She had increased anion gap metabolic acidosis with hyperglycemia on presentation. Her acidosis is improving with pH of 7.30. On the most recent BMP, she has hypernatremia, hypokalemia, hyperchloremia, improving bicarbonate, improving acute kidney injury, and hypophosphatemia. She has blood culture in lab. Urinalysis did not have any pyuria. The patient was started on DKA protocol overnight. IMAGING: She had a chest x-ray which did not have any evidence of acute pathology. She also got NG tube placement which was in the stomach. If the patient continues to remain encephalopathic, I would consider getting a CT scan head. ASSESSMENT AND PLAN: 1. Diabetic ketoacidosis with history of insulin-dependent diabetes mellitus and prior history of hemoglobin A1c of 11.4 in 2018. I will follow up with repeat hemoglobin A1c tomorrow. 2. Acute encephalopathy. Could be in the setting of diabetic ketoacidosis. However, I don't have adequate history. The family did not receive the phone. I would get Head CT. 3. Profound electrolyte abnormalities including hypernatremia, hyperchloremia, hypokalemia, hypophosphatemia, which is being repleted currently according to protocol. 4. Past history of severe esophagitis. 5. Past history of anxiety and chronic pain. 6. Healed folliculitis/cyst on left back below scapula: Appears to be healing. I have marked the erythema. Accordingly, this might require I&D if it worsens or turns into an abscess. PLAN: I discussed with the nursing team about changing the fluids to D5 half- normal saline. I am inserting a nasogastric tube and giving her additional potassium for life- threatening hypokalemia. Once her electrolytes, if her mental status does not improve, the plan is to get a CT scan head to rule out any acute intracranial pathologies. However, currently she is moving all extremities equally but the examination is limited because of her mental status. TIME SPENT: More than 30 minutes of critical care time was spent in taking care of this patient. I called the patient's mother who is listed to be next surrogate decision-maker; however, her voicemail is not set up. I sent her a voicemail-related text message on phone. Plan of care discussed with the nursing team. cc: Jer Gerard MD MTDD
[2018-09-10 16:22] LABS: BASO# 0.01 X1000 (0.0-0.2); HEMATOCRIT 28.1 % (37.0-47.0); HEMOGLOBIN 9.9 g/dL (12.0-16.0); IMM GRAN# 0.12 X1000 (0.0-0.04); IMM GRAN% 0.6 % (0.0-0.5); LYMPH# 2.54 X1000 (1.2-3.4); LYMPH% 11.8 % (20.5-51.1); MCH 28.2 PG (27-31); MCHC 35.2 g/dL (33-37); MCV 80.1 FL (81-99); MONO# 1.73 X1000 (0.11-0.59); MPV 9.4 FL (7.4-10.4); NEUT% 79.6 % (42.2-75.2); PLT 278 X1000 (130-400); RBC 3.51 XMIL (4.2-5.4); RDW 12.9 % (11.5-14.5)
[2018-09-10 16:31] LABS: ESTIMATED GFR > 60
[2018-09-10 16:32] LABS: AGAP 9; BUN 19 mg/dL (8-22); CALCIUM 8.2 mg/dL (8.8-10.2); CHLORIDE 127 mmol/L (98-107); COSMO 314; CREATININE 0.9 mg/dL (0.5-0.9); GLUCOSE 204 mg/dL (70-104); MAGNESIUM 1.7 mg/dL (1.5-2.7); PHOSPHORUS 2.7 mg/dL (2.7-4.5); POTASSIUM 4.5 mmol/L (3.5-5.1); SODIUM 154 mmol/L (136-145); TCO2 18 mmol/L (25-35)
[2018-09-10] MEDS ORDERED: POTASSIUM CHLORIDE 10% LIQUID PO ONE (16:38)
[2018-09-10] MEDS: POTASSIUM CHLORIDE 10% LIQUID PO PRN ×2 (16:44→20:49)
[2018-09-10 16:45] LABS: BANDS 1 % (0-1); LYMPHS 16 % (21-51); MONO 4 % (1-9); SEGS 78 % (42-75)
[2018-09-10] MEDS: D5W 1,000 ML IV SCH (17:30)
[2018-09-10 20:28] LABS: ESTIMATED GFR > 60
[2018-09-10 20:35] LABS: AGAP 7; BUN 17 mg/dL (8-22); CALCIUM 8.4 mg/dL (8.8-10.2); CHLORIDE 123 mmol/L (98-107); COSMO 300; CREATININE 0.9 mg/dL (0.5-0.9); GLUCOSE 165 mg/dL (70-104); MAGNESIUM 1.6 mg/dL (1.5-2.7); PHOSPHORUS 1.9 mg/dL (2.7-4.5); POTASSIUM 4.6 mmol/L (3.5-5.1); SODIUM 148 mmol/L (136-145); TCO2 18 mmol/L (25-35)
[2018-09-10] MEDS: NEXIUM PACKET NG SCH (20:49)
[2018-09-10] MEDS ORDERED: NS 1,000 ML IV SCH (21:30)
[2018-09-10] MEDS ORDERED: HUMULIN R SUBQ SCH (21:30)
[2018-09-10 23:27] LABS: ESTIMATED GFR > 60
[2018-09-10 23:30] LABS: AGAP 9; BUN 16 mg/dL (8-22); CALCIUM 8.4 mg/dL (8.8-10.2); CHLORIDE 123 mmol/L (98-107); COSMO 304; CREATININE 0.9 mg/dL (0.5-0.9); GLUCOSE 188 mg/dL (70-104); PHOSPHORUS 1.5 mg/dL (2.7-4.5); POTASSIUM 4.1 mmol/L (3.5-5.1); SODIUM 150 mmol/L (136-145); TCO2 18 mmol/L (25-35)
[2018-09-11] MEDS ORDERED: NS 1,000 ML IV SCH (00:37)
[2018-09-11] MEDS ORDERED: D50W SYRINGE IV ONE (00:43)
[2018-09-11] MEDS: HUMULIN R SUBQ SCH ×7 (02:01→23:18)
[2018-09-11 02:45] LABS: MAGNESIUM 2.3 mg/dL (1.5-2.7); PHOSPHORUS 1.5 mg/dL (2.7-4.5)
[2018-09-11 02:49] LABS: ESTIMATED GFR > 60
[2018-09-11 02:55] LABS: AGAP 12; BUN 15 mg/dL (8-22); CHLORIDE 121 mmol/L (98-107); COSMO 304; CREATININE 0.9 mg/dL (0.5-0.9); GLUCOSE 130 mg/dL (70-104); POTASSIUM 3.9 mmol/L (3.5-5.1); SODIUM 152 mmol/L (136-145); TCO2 19 mmol/L (25-35)
[2018-09-11] MEDS: D5W 1,000 ML IV SCH ×3 (04:06→22:37)
[2018-09-11 06:31] LABS: BASO# 0.01 X1000 (0.0-0.2); BASO% 0.1 % (0.0-0.8); EOS# 0.02 X1000 (0.0-0.7); EOS% 0.1 % (0.0-10.0); HEMATOCRIT 30.5 % (37.0-47.0); HEMOGLOBIN 10.6 g/dL (12.0-16.0); IMM GRAN# 0.04 X1000 (0.0-0.04); IMM GRAN% 0.2 % (0.0-0.5); LYMPH# 1.61 X1000 (1.2-3.4); LYMPH% 9.8 % (20.5-51.1); MCH 28.2 PG (27-31); MCHC 34.8 g/dL (33-37); MCV 81.1 FL (81-99); MONO# 0.88 X1000 (0.11-0.59); MONO% 5.4 % (1.7-9.3); MPV 10.1 FL (7.4-10.4); NEUT# 13.88 X1000 (1.4-6.5); NEUT% 84.4 % (42.2-75.2); PLT 268 X1000 (130-400); RBC 3.76 XMIL (4.2-5.4); RDW 13.9 % (11.5-14.5); WBC 16.44 X1000 (4.8-10.8)
--- NOTE | 2018-09-11 06:32 | Diag Imaging Result Doc PS360 ---
CT HEAD W/O CONTRAST - 09/10/2018 INDICATION: Rule out acute intracranial pathology COMPARISON: 09/07/2017 FINDINGS: The ventricles and sulci are normal in size and contour. No intracranial mass or hemorrhage. The skull is intact. The sinuses mastoids and middle ears are clear. IMPRESSION: Negative exam. This exam was performed using automated exposure control, adjustment of mA or kV according to patient size, and/or use of iterative reconstruction technique Electronically signed by Blayne Estrada 09/11/2018 6:30 AM
[2018-09-11 06:54] LABS: ESTIMATED GFR > 60
[2018-09-11 06:59] LABS: AGAP 9; BUN 13 mg/dL (8-22); CALCIUM 8.9 mg/dL (8.8-10.2); CHLORIDE 123 mmol/L (98-107); COSMO 304; CREATININE 0.8 mg/dL (0.5-0.9); GLUCOSE 162 mg/dL (70-104); POTASSIUM 4.2 mmol/L (3.5-5.1); SODIUM 151 mmol/L (136-145); TCO2 19 mmol/L (25-35)
[2018-09-11] MEDS ORDERED: PROTONIX PO SCH (07:00)
[2018-09-11 07:37] LABS: MAGNESIUM 2.1 mg/dL (1.5-2.7); PHOSPHORUS 1.5 mg/dL (2.7-4.5)
[2018-09-11] MEDS: NEXIUM PACKET NG SCH ×2 (08:27→20:11)
[2018-09-11] MEDS: ZYVOX 600 MG/D5W 600 MG/300 ML IVPB IV SCH ×2 (08:54→20:11)
[2018-09-11] MEDS: ZOSYN 3.375 GM in NS 50 ML IV SCH ×3 (08:55→20:12)
--- NOTE | 2018-09-11 09:08 | PROGRESS NOTE ---
DATE: 09/11/2018 SUBJECTIVE: This patient is in bed, she is in physical restraints, she is confused. Her gap is closed. Blood sugar has being in the 100s and 200s mostly. She is hypernatremic. Hemoglobin A1c he is 13.0. I will stop the diabetic ketoacidosis protocol. I will put her on D5W at 75 mL/hour. I will start some nutrition and probably some water boluses, for that I have requested an evaluation by the dietitian. When she came in, the blood sugar was more than 1500 with pseudohyponatremia. I will recheck her liver enzymes in the morning since she came in also with mild elevation of the LFTs. OBJECTIVE: Vital Signs: Temperature 99.4 degrees, pulse 122, respiratory rate 18, blood pressure 125/96, oxygen saturation 96 on room air. HEENT: Head normocephalic. No trauma. PERRLA. Neck: Supple. No JVD. No masses. Central trachea. Chest: Clear to auscultation. No wheezing. No rales. Abdomen: Soft. Some tenderness to palpation at the level of the periumbilical area. Extremities: No edema, no clubbing, no cyanosis. Neurological: The patient is awake. She is a little bit somnolent. She is not following commands. She is confused. She is able to move all 4 extremities but I cannot complete the neurological exam due to her confusion. LABORATORY DATA: WBC 16.4, hemoglobin 10.6, hematocrit 30.5, platelets 268,000. Sodium 151, potassium 4.2, chloride 123, bicarbonate 19, BUN 13, creatinine 0.8, glucose 162, calcium 8.9. Phosphorus 1.5, magnesium 2.1. Hemoglobin A1c 13. ASSESSMENT AND PLAN: 1. Diabetic ketoacidosis in a patient with diabetes. Her previous hemoglobin A1c was 11.4 in 2018 and today is 13. It looks like this patient is not taking care of her blood sugar at home, she is confused. I have stopped the DKA protocol because the anion gap has closed, but I will continue to monitor the blood sugar closely. 2. Hypernatremia. I will continue with D5W. I will start this lady on tube feeding and some water boluses probably. I will monitor her sodium level every 4 hours. 3. Profound electrolyte abnormalities including hypernatremia, hypochloremia, hypokalemia and hypophosphatemia. She is still a little bit hypophosphatemic. We will continue to monitor that. For the blood sodium, we will check it every 4 hours. I have stopped the normal saline and put this lady on D5W. Let us see how she does. 4. Past history of severe esophagitis. Aware. Continue with pantoprazole. 5. History of anxiety and chronic pain. She has been having as needed medication. 6. Encephalopathy. No family members at the bedside. It could be related to electrolyte abnormality/DKA/she has a urine toxicology that showed amphetamine and benzodiazepine as well. She does have a listed medication as needed with Xanax and [place]. 7. Healed folliculitis/cyst on the left back below the scapula, appears to be healing, she has some erythema. Since this patient came in tachycardic, her lactate level was high and decompensated, I will probably put this patient on antibiotics and I will monitor. I have requested also a urine culture even though the urinalysis looks fine. 8. Uncontrolled type 2 diabetes. Hemoglobin A1c 13, as per #1. cc: Gillse Enriquez MD
[2018-09-11] MEDS ORDERED: HUMULIN R SUBQ ONE (10:19)
[2018-09-11] MEDS: 1/2 NS 1,000 ML IV SCH ×2 (10:32→23:17)
[2018-09-11 11:33] LABS: AMYLASE 132 U/L (20-200); LIPASE 135 U/L (13-60)
[2018-09-11 18:21] LABS: AGAP 9; BUN 10 mg/dL (8-22); CALCIUM 8.5 mg/dL (8.8-10.2); CHLORIDE 112 mmol/L (98-107); COSMO 287; CREATININE 0.6 mg/dL (0.5-0.9); ESTIMATED GFR > 60; GLUCOSE 180 mg/dL (70-104); POTASSIUM 3.9 mmol/L (3.5-5.1); SODIUM 142 mmol/L (136-145); TCO2 21 mmol/L (25-35)
[2018-09-11] MEDS ORDERED: MOTRIN PO ONE (20:33)
[2018-09-11 22:33] LABS: PHOSPHORUS 1.9 mg/dL (2.7-4.5)
[2018-09-12] MEDS: HUMULIN R SUBQ SCH ×8 (01:11→23:45)
[2018-09-12] MEDS: ZOSYN 3.375 GM in NS 50 ML IV SCH ×4 (01:47→20:15)
[2018-09-12 05:19] LABS: BASO# 0.02 X1000 (0.0-0.2); BASO% 0.2 % (0.0-0.8); EOS# 0.05 X1000 (0.0-0.7); EOS% 0.4 % (0.0-10.0); HEMATOCRIT 28.3 % (37.0-47.0); HEMOGLOBIN 9.5 g/dL (12.0-16.0); IMM GRAN# 0.04 X1000 (0.0-0.04); IMM GRAN% 0.3 % (0.0-0.5); LYMPH# 2.62 X1000 (1.2-3.4); MCH 27.9 PG (27-31); MCHC 33.6 g/dL (33-37); MCV 83.2 FL (81-99); MONO% 3.8 % (1.7-9.3); MPV 10.6 FL (7.4-10.4); NEUT# 9.85 X1000 (1.4-6.5); NEUT% 75.3 % (42.2-75.2); PLT 204 X1000 (130-400); RDW 14.8 % (11.5-14.5); WBC 13.08 X1000 (4.8-10.8)
[2018-09-12 05:49] LABS: AGAP 10; ALB/GLOB RATIO 0.9; ALBUMIN 2.7 g/dL (3.5-5.0); ALKALINE PHOSPHATASE 94 U/L (32-104); BUN 12 mg/dL (8-22); CALCIUM 8.5 mg/dL (8.8-10.2); CHLORIDE 111 mmol/L (98-107); COSMO 284; CREATININE 0.6 mg/dL (0.5-0.9); ESTIMATED GFR > 60; GLUCOSE 49 mg/dL (70-104); GOT 18 U/L (10-30); GPT 30 U/L (10-36); POTASSIUM 3.4 mmol/L (3.5-5.1); SODIUM 144 mmol/L (136-145); TCO2 23 mmol/L (25-35); TOTAL BILIRUBIN 0.32 mg/dL (0.20-1.00); TOTAL PROTEIN 5.7 g/dL (6.3-8.3)
[2018-09-12] MEDS ORDERED: POTASSIUM CHLORIDE 20% LIQUID PO ONE (07:12)
--- NOTE | 2018-09-12 07:25 | Diag Imaging Result Doc PS360 ---
EXAM: CHEST-1 VIEW 09/12/2018 HISTORY: SOB TECHNIQUE: AP portable at 0505 COMMENT: There is alveolar opacity in the right lower lobe which was not the case on 09/10/2018. There is an NG tube which apparently passes below the diaphragm. There is a gas collection and soft tissue swelling in the supraclavicular region on the right. This was not present on 09/09/2018 and is apparently worse than on 09/10/2018. There may have been an internal jugular catheter at the time the previous study of 09/10/2018 which is apparently no longer present. The possibility of cellulitis and/or abscess in this location is suggested. IMPRESSION: 1. Right supraclavicular cellulitis and possible abscess. 2. Right lower lobe pneumonia. The findings were discussed with Gilles Schuster MD at 09/12/2018 7:23 AM. Electronically signed by Steven Haines 09/12/2018 7:23 AM
[2018-09-12] MEDS ORDERED: 1/2 NS 1,000 ML IV SCH (07:30)
[2018-09-12] MEDS: NEXIUM PACKET NG SCH (08:27)
[2018-09-12] MEDS: ZYVOX 600 MG/D5W 600 MG/300 ML IVPB IV SCH ×2 (08:27→20:15)
[2018-09-12 09:08] LABS: PHOSPHORUS 1.8 mg/dL (2.7-4.5); PREALBUMIN 9.1 mg/dL (20-40)
--- NOTE | 2018-09-12 09:43 | PROGRESS NOTE ---
DATE: 09/12/2018 SUBJECTIVE: This patient is resting in bed. She is not on physical restraints. She is not confused today. Her anion gap is closed. Blood sugar has been up and down. We will continue with the sliding scale insulin, pattern blood sugar. Since she is completely alert, I will remove the NG tube, and I will start feeding this patient. She is complaining of generalized pain. X- ray reported a right lower lobe pneumonia and also the possibility of right supraclavicular cellulitis and possible abscess but I evaluated this area and she has an EJ in place that we have been using for treatment, the area is edematous but I do not see any signs of infection, it is not red, it is just slightly tender to palpation, but will put this patient on antibiotics yesterday so we will monitor this closely. OBJECTIVE: Vital Signs: Temperature 98.9, pulse 103, respiratory rate 25, blood pressure 94/54, oxygen saturation 96 on room air. HEENT: Head normocephalic. No trauma. PERRLA. Neck: Supple. No JVD. She has swelling, edema at the level of the right supraclavicular area that is slightly tender to palpation but no redness or secretion coming out from that area. Chest: Clear to auscultation. Some rhonchi at the level of the right base. Abdomen: Soft, nontender, nondistended. No hepatosplenomegaly. Extremities: No edema, no clubbing, no cyanosis. Neurological: This patient today is alert and oriented x3. No focal deficit but generalized weakness and generalized soreness. LABORATORY: WBC 13, hemoglobin 9.5, hematocrit 28.3, platelet 204. Sodium 144, potassium 3.4, chloride 111, bicarbonate 23, BUN 12, creatinine 0.6, glucose 49, calcium 8.5, albumin 2.7. ASSESSMENT AND PLAN: 1. Diabetic ketoacidosis in a patient with uncontrolled diabetes, her previous hemoglobin A1c was 11.4 in 2018 and during this hospitalization has been 13, it looks like the patient is not taking care of her blood sugar at all at home. She is not confused today. We stopped the diabetic ketoacidosis protocol yesterday because her anion gap was closed but she is still having hyperglycemia and hypoglycemia, so we will monitor this patient closely in the ICU. I will decrease the rate of the half NS and I will start feeding this patient. 2. Hypernatremia, resolved. We have discontinued the D5W and she has been placed on half NS. She was tolerating the feeding tube, which we will stop today, and we will start a diabetic diet. Her sodium level is normal today. 3. Profound electrolyte abnormalities including hypernatremia, hypochloremia, hypokalemia and hypophosphatemia. I will replace the potassium today. We will continue to monitor. Sodium level improved, and I will get a new set of lab work today at 4 p.m. 4. Past history of severe esophagitis. Continue pantoprazole. 5. History of anxiety and chronic pain. She has been having as needed medication but I will avoid narcotics due to her borderline low blood pressure. 6. Right lower lobe pneumonia. I have placed this patient already on broad-spectrum antibiotics. We will continue to monitor. She is not complaining of shortness of breath and her oxygen saturation is stable. 7. Encephalopathy, resolved. 8. Healed folliculitis/cyst on the left side of her back below the scapula. Will continue to monitor. Will continue with antibiotics. I think this is healing well. 9. Uncontrolled type 2 diabetes. Hemoglobin A1c 13. Please see number 1. 10.Elevated liver function tests, resolved. 11.Swelling at the level of the right supraclavicular area, there is a report from the Radiology Department showing the possibility of supraclavicular cellulitis and possible abscess. She does have an EJ in that area that we have been using for treatment. There is a possibility of extravasation from that line, we will remove it, and we will monitor. The area is swollen but I do not see any signs of infection nor redness just mild pain. We will continue with antibiotics and I will monitor this patient closely. CRITICAL CARE TIME: 40 minutes. cc: Gilles Enriquez MD
[2018-09-12] MEDS: LEVEMIR SUBQ SCH ×2 (14:09→21:53)
[2018-09-12] MEDS ORDERED: INSULIN PEN NEEDLES ONE (14:12)
[2018-09-12] MEDS: 1/2 NS 1,000 ML IV SCH ×2 (17:34→20:15)
[2018-09-12] MEDS: TYLENOL PO PRN ×2 (17:37→23:45)
[2018-09-12 17:54] LABS: BASO# 0.03 X1000 (0.0-0.2); BASO% 0.3 % (0.0-0.8); HEMATOCRIT 28.8 % (37.0-47.0); HEMOGLOBIN 9.5 g/dL (12.0-16.0); IMM GRAN# 0.02 X1000 (0.0-0.04); IMM GRAN% 0.2 % (0.0-0.5); LYMPH# 2.23 X1000 (1.2-3.4); MCH 29.1 PG (27-31); MCV 88.1 FL (81-99); MONO# 0.52 X1000 (0.11-0.59); MONO% 5.1 % (1.7-9.3); NEUT# 7.25 X1000 (1.4-6.5); NEUT% 71.4 % (42.2-75.2); PLT 148 X1000 (130-400); RBC 3.27 XMIL (4.2-5.4); RDW 15.4 % (11.5-14.5); WBC 10.15 X1000 (4.8-10.8)
[2018-09-12 18:34] LABS: AGAP 8; BUN 12 mg/dL (8-22); CALCIUM 8.2 mg/dL (8.8-10.2); CHLORIDE 107 mmol/L (98-107); COSMO 274; CREATININE 0.6 mg/dL (0.5-0.9); ESTIMATED GFR > 60; GLUCOSE 145 mg/dL (70-104); MAGNESIUM 1.8 mg/dL (1.5-2.7); PHOSPHORUS 1.9 mg/dL (2.7-4.5); POTASSIUM 3.5 mmol/L (3.5-5.1); SODIUM 136 mmol/L (136-145); TCO2 21 mmol/L (25-35)
[2018-09-12] MEDS: NEXIUM PO SCH (20:15)
[2018-09-13] MEDS: ZOSYN 3.375 GM in NS 50 ML IV SCH ×4 (03:06→20:45)
[2018-09-13] MEDS: 1/2 NS 1,000 ML IV SCH ×2 (03:06→08:42)
[2018-09-13 05:44] LABS: BASO# 0.01 X1000 (0.0-0.2); BASO% 0.1 % (0.0-0.8); EOS# 0.25 X1000 (0.0-0.7); EOS% 3.1 % (0.0-10.0); HEMATOCRIT 27.6 % (37.0-47.0); LYMPH# 2.39 X1000 (1.2-3.4); LYMPH% 29.3 % (20.5-51.1); MCH 27.6 PG (27-31); MCHC 32.6 g/dL (33-37); MCV 84.7 FL (81-99); MONO# 0.28 X1000 (0.11-0.59); MONO% 3.4 % (1.7-9.3); MPV 9.7 FL (7.4-10.4); NEUT# 5.23 X1000 (1.4-6.5); NEUT% 64.1 % (42.2-75.2); PLT 155 X1000 (130-400); RBC 3.26 XMIL (4.2-5.4); RDW 14.9 % (11.5-14.5); WBC 8.16 X1000 (4.8-10.8)
[2018-09-13] MEDS: TYLENOL PO PRN ×2 (05:51→11:52)
[2018-09-13] MEDS: HUMULIN R SUBQ SCH ×5 (05:51→20:49)
[2018-09-13 06:28] LABS: AGAP 8; BUN 9 mg/dL (8-22); CALCIUM 8.3 mg/dL (8.8-10.2); CHLORIDE 104 mmol/L (98-107); COSMO 280; CREATININE 0.6 mg/dL (0.5-0.9); ESTIMATED GFR > 60; GLUCOSE 231 mg/dL (70-104); POTASSIUM 3.8 mmol/L (3.5-5.1); SODIUM 137 mmol/L (136-145); TCO2 25 mmol/L (25-35)
[2018-09-13 06:29] LABS: MAGNESIUM 1.8 mg/dL (1.5-2.7); PHOSPHORUS 2.7 mg/dL (2.7-4.5)
[2018-09-13] MEDS: ZYVOX 600 MG/D5W 600 MG/300 ML IVPB IV SCH (07:50)
--- NOTE | 2018-09-13 07:59 | Diag Imaging Result Doc PS360 ---
EXAM: CHEST-PORTABLE INDICATION: dyspnea TECHNIQUE: One view COMPARISON: 09/12/2018 FINDINGS: The mild right lower lobe infiltrate appears to have marginally improved. No new consolidation is identified. Cardiac silhouette is stable. There is still subcutaneous emphysema in the right supraclavicular region suggesting possible cellulitis. IMPRESSION: Interval marginal improvement of the mild right lower lobe infiltrate. Electronically signed by German Aguirre 09/13/2018 7:57 AM
[2018-09-13] MEDS: LEVEMIR SUBQ SCH ×2 (08:01→20:44)
[2018-09-13] MEDS: NEXIUM PO SCH ×2 (08:01→20:44)
[2018-09-13] MEDS ORDERED: VANCOMYCIN IV PER PHARMACY MISC SCH (08:15)
--- NOTE | 2018-09-13 09:21 | PROGRESS NOTE ---
DATE: 09/13/2018 SUBJECTIVE: The patient is completely awake, alert, and oriented x3. She is complaining of generalized pain, especially her back. Her right supraclavicular area is not swollen today, she does have some crepitus in that area where she used to have the EJ line, I do not see any secretion or infection, I will just monitor for now. She is getting broad-spectrum antibiotics. I will remove the Georges catheter. She still has a borderline low blood pressure but as per the patient, this is her normal number, I will continue to monitor. OBJECTIVE: Vital Signs: Temperature 98.4 degrees, pulse 91, respiratory rate 12, blood pressure 98/67, oxygen saturation 99 on room air. HEENT: Head normocephalic. No trauma. PERRLA. Neck: Supple. No JVD. No masses. Central trachea. She has a small swelling with no redness at the level of the supraclavicular area with some crepitation, she used to have an IV line yesterday there, an EJ that has been removed, it does not look infected. Chest: Clear to auscultation. Some rhonchi at the level of the right base. Abdomen: Soft, nontender, nondistended. No hepatosplenomegaly. Extremities: No edema, no clubbing, no cyanosis. Neurological: The patient is alert and oriented x3. No focal neurological deficits but generalized weakness. Skin: She has a round lesion with some scratch mcgee on her left posterior thoracic area behind the scapular area. It has been marked upon admission and the redness seems to be getting better. We will continue with antibiotics. LABORATORY DATA: WBC 8.1, hemoglobin 9, hematocrit 27.6, platelets 155,000. Sodium 137, potassium 3.8, chloride 104, bicarbonate 25, BUN 9, creatinine 0.6, glucose 231, calcium 8.3, magnesium 1.8. ASSESSMENT AND PLAN: 1. Diabetic ketoacidosis in a patient with uncontrolled diabetes, hemoglobin A1c 13, resolved. Continue with long-acting and short-acting insulin. We will continue to monitor. 2. Hypernatremia, resolved. 3. Profound electrolyte abnormalities including hypernatremia, hypochloremia, hypokalemia and hypophosphatemia, resolved. We will continue to monitor this closely. 4. Past medical history of severe esophagitis. Continue with pantoprazole. 5. History of anxiety and chronic pain. I will add tramadol to her medications. She seems to be better. I will avoid stronger narcotics due to her borderline low blood pressure. 6. Right lower lobe pneumonia. Continue with broad-spectrum antibiotics. 7. Encephalopathy, resolved. 8. Likely folliculitis/cyst on the left side of the back below the scapula with some redness, seems to be healing well. 9. Uncontrolled type 2 diabetes. Hemoglobin A1c is 13. Please refer to #1. 10. Elevated liver function tests, resolved. 11. Swelling at the level of the right supraclavicular area, significantly better compared with yesterday. I do believe this is related to a previous EJ line that she had in that area, she has some crepitus there, no redness, some discomfort but no pain. We will monitor. cc: Gilles Enriquez MD
[2018-09-13] MEDS: ULTRAM PO PRN ×3 (09:31→22:34)
[2018-09-13] MEDS ORDERED: VANCOMYCIN 1,650 MG in NS 250 ML IV ONE (11:00)
[2018-09-13] MEDS: VANCOMYCIN 1,200 MG in NS 250 ML IV SCH (22:29)
[2018-09-13] MEDS: ZOFRAN IV PRN (22:41)
[2018-09-14] MEDS: HUMULIN R SUBQ SCH ×6 (00:12→21:37)
[2018-09-14] MEDS: ZOSYN 3.375 GM in NS 50 ML IV SCH ×4 (03:10→18:26)
[2018-09-14] MEDS: ZOFRAN IV PRN (04:19)
[2018-09-14] MEDS: ULTRAM PO PRN ×3 (04:19→19:06)
[2018-09-14 05:58] LABS: BASO# 0.01 X1000 (0.0-0.2); BASO% 0.1 % (0.0-0.8); EOS# 0.23 X1000 (0.0-0.7); EOS% 2.7 % (0.0-10.0); HEMATOCRIT 37.9 % (37.0-47.0); HEMOGLOBIN 12.6 g/dL (12.0-16.0); LYMPH# 2.14 X1000 (1.2-3.4); MCH 28.2 PG (27-31); MCHC 33.2 g/dL (33-37); MCV 84.8 FL (81-99); MONO# 0.26 X1000 (0.11-0.59); MPV 10.9 FL (7.4-10.4); NEUT# 5.92 X1000 (1.4-6.5); NEUT% 69.2 % (42.2-75.2); PLT 158 X1000 (130-400); RBC 4.47 XMIL (4.2-5.4); WBC 8.56 X1000 (4.8-10.8)
[2018-09-14] MEDS: 1/2 NS 1,000 ML IV SCH (06:02)
[2018-09-14 06:08] LABS: AGAP 11; BUN 7 mg/dL (8-22); CALCIUM 8.9 mg/dL (8.8-10.2); CHLORIDE 104 mmol/L (98-107); COSMO 277; CREATININE 0.5 mg/dL (0.5-0.9); ESTIMATED GFR > 60; GLUCOSE 62 mg/dL (70-104); MAGNESIUM 1.8 mg/dL (1.5-2.7); PHOSPHORUS 3.9 mg/dL (2.7-4.5); POTASSIUM 3.6 mmol/L (3.5-5.1); SODIUM 141 mmol/L (136-145); TCO2 26 mmol/L (25-35)
[2018-09-14] MEDS: LEVEMIR SUBQ SCH ×2 (08:20→22:23)
[2018-09-14] MEDS: NEXIUM PO SCH ×2 (08:20→21:37)
--- NOTE | 2018-09-14 08:23 | PROGRESS NOTE ---
DATE: 09/14/2018 SUBJECTIVE: The patient is completely awake, alert, and oriented x3. She has been complaining of generalized pain, especially her back, but she seems to be a little bit better. She has been always asking for narcotics, especially [place], for her pain but she is not getting it because of her borderline low blood pressure. Her right supraclavicular area is not swollen and not painful today. She used to have an EJ line. I do not see any secretion, redness, or fluid collection at this moment. We will just monitor for now. She is on broad-spectrum antibiotics. She had an episode of hypoglycemia during the night. I will stop the intermediate dose of sliding scale and I will put her on a low dose. OBJECTIVE: Vital Signs: Temperature 97.7 degrees, pulse 90, respiratory rate 14, blood pressure 101/67, oxygen saturation 100% on room air. HEENT: Head normocephalic. No trauma. PERRLA. Neck: Supple. No JVD. No masses. Central trachea. She used to have an swelling with no redness and no signs of infection at the level of the right supraclavicular area. She used to have some crepitation but not anymore. She used to have an IV in that place, EJ line that has been removed. Again, it does not look infected. Chest: Clear to auscultation. Some rhonchi at the level of the right base. Abdomen: Soft, nontender, nondistended. No hepatosplenomegaly. Extremities: No edema, no clubbing, no cyanosis. Neurological Examination: This patient is alert and oriented x3. No focal neurological deficit but generalized weakness. Skin: She has a round lesion with some scratch mcgee on her left posterior thoracic area behind the scapula. It had been mukul upon admission and the redness seems to be getting better. We will continue with antibiotics as well. Laboratory: WBC 8.5, hemoglobin 12.6, hematocrit 37.9, platelets 158,000. Sodium 141, potassium 3.6, chloride 104, bicarbonate 26, BUN 7, creatinine 0.5, glucose 62, calcium 8.9, magnesium 1.8. ASSESSMENT AND PLAN: 1. Diabetic ketoacidosis in a patient with uncontrolled diabetes. Hemoglobin A1c is 13. The diabetic ketoacidosis has resolved. Continue with long-acting insulin and sliding scale insulin which I have decreased because of an episode of hypoglycemia. We will continue to monitor. 2. Hypernatremia, resolved. 3. Profound electrolyte abnormalities including hypernatremia, hypochloremia, hypokalemia, and hypophosphatemia, resolved. We will continue to monitor this closely. 4. Past medical history of severe esophagitis. Continue with pantoprazole. 5. History of anxiety and chronic pain. Continue with tramadol. She seems to be better. I will avoid stronger narcotics and/or nonsteroidal anti-inflammatory drugs due to her history of esophagitis and a borderline low blood pressure. 6. Right lower lobe pneumonia. Continue with broad spectrum antibiotics. 7. Encephalopathy, resolved. 8. Likely folliculitis and/or cellulitis on the left side of her back below the scapula with some redness, seems to be healing well and seems to be much better. 9. Uncontrolled type 2 diabetes. Hemoglobin A1c is 13. She used to be on insulin detemir twice a day, 20 units, and actually she is getting the same management right now but since she has been having problems with her insurance and she cannot afford this medication, she decided to switch it to 70/30 and dose herself. That is why likely she ended up here in the hospital with severe diabetic ketoacidosis. 10. Elevated liver function tests, resolved. 11. Swelling at the level of the right supraclavicular area. It is significantly better compared with a couple days ago. I do believe that was related to a previous EJ line that she had in that area. She used to have some crepitus there but not anymore. It is not red and is not painful to palpation. 12. Overall, this patient seems to be doing much better. I do believe she can be discharged in the next 24 to 48 hours, likely 48 hours. She came in with really uncontrolled diabetes and diabetic ketoacidosis. As per the patient, she decided to stop her insulin and switch it to 70/30, and she started to dose herself with that. We will continue with insulin detemir during this hospitalization. I asked her if she wants to switch it to 70/30 and she stated that she wanted to keep the insulin detemir. Because of an episode of hypoglycemia during the night, I have decreased the amount of the sliding scale insulin. She received insulin sliding scale after 10 p.m. and probably that caused the hypoglycemia. I told the patient that if she received insulin before going to bed, she needs to get a snack before sleeping. cc: Gilles Enriquez MD
[2018-09-14 11:22] LABS: PROTIME 11.4 Seconds (11.0-16.0); PTT 27.3 Seconds (22.3-41.8)
[2018-09-14 11:43] LABS: INR 0.77
[2018-09-14] MEDS: TYLENOL PO PRN (11:43)
[2018-09-14] MEDS ORDERED: NS 0 ML ONE (12:19)
[2018-09-14] MEDS: VANCOMYCIN 1,200 MG in NS 250 ML IV SCH (14:13)
[2018-09-14] MEDS ORDERED: INSULIN PEN NEEDLES ONE (22:26)
[2018-09-15] MEDS: HUMULIN R SUBQ SCH ×4 (00:51→12:39)
[2018-09-15] MEDS: ZOSYN 3.375 GM in NS 50 ML IV SCH ×3 (00:57→12:42)
[2018-09-15] MEDS: VANCOMYCIN 1,200 MG in NS 250 ML IV SCH ×2 (01:00→14:33)
[2018-09-15] MEDS: ULTRAM PO PRN ×2 (01:30→09:11)
[2018-09-15] MEDS: ZOFRAN IV PRN ×2 (01:31→09:12)
[2018-09-15] MEDS: TYLENOL PO PRN ×2 (01:31→06:31)
[2018-09-15] MEDS: 1/2 NS 1,000 ML IV SCH (04:54)
[2018-09-15 07:13] LABS: AGAP 10; BUN 6 mg/dL (8-22); CALCIUM 8.7 mg/dL (8.8-10.2); CHLORIDE 103 mmol/L (98-107); COSMO 276; CREATININE 0.4 mg/dL (0.5-0.9); ESTIMATED GFR > 60; GLUCOSE 149 mg/dL (70-104); MAGNESIUM 1.5 mg/dL (1.5-2.7); PHOSPHORUS 4.6 mg/dL (2.7-4.5); POTASSIUM 3.9 mmol/L (3.5-5.1); SODIUM 138 mmol/L (136-145); TCO2 25 mmol/L (25-35)
--- NOTE | 2018-09-15 07:34 | Diag Imaging Result Doc PS360 ---
EXAM: CHEST-PORTABLE INDICATION: dyspnea TECHNIQUE: One view COMPARISON: 09/13/2018 FINDINGS: The patient is somewhat rotated toward the right. The right basilar infiltrate has grossly resolved. No new consolidation is identified. Cardiac silhouette is stable. IMPRESSION: Gross resolution of the mild right basilar infiltrate by plain radiograph. Electronically signed by German Aguirre 09/15/2018 7:32 AM
[2018-09-15] MEDS: LEVEMIR SUBQ SCH (09:12)
[2018-09-15] MEDS: NEXIUM PO SCH (09:12)
[2018-09-15 12:44] VITALS: BP 107/72
[2018-09-15] MEDS ORDERED: HUMALOG SUBQ SCH (16:00)
--- NOTE | 2018-09-16 14:32 | DISCHARGE SUMMARY ---
ADMISSION DATE: 09/09/2018 DISCHARGE DATE: 09/15/2018 DIAGNOSES: 1. Diabetic ketoacidosis, resolved. 2. Altered mental status, resolved. 3. Hypernatremia, resolved. 4. History of anxiety and chronic pain. 5. Right lower lobe pneumonia. 6. Uncontrolled diabetes type 2 with hemoglobin A1c of 13. 7. Elevated LFTs, resolved. 8. Electrolyte abnormalities, resolved. DIAGNOSTICS: 1. Chest x-ray revealed no evidence of acute pathology. 2. NG tube placement revealed NG tube in the stomach. 3. Chest x-ray 09/15/2018 revealed gross resolution of the mid right basilar infiltrate. 4. CT of the head revealed negative exam. 5. Microbiology revealed yeast in the urine. Blood cultures x2 revealed no growth after 5 days. 6. Gastric occult blood was negative. HOSPITAL COURSE: Ms. Head presented to the emergency room confused. She was found to be in DKA. She was admitted to ICU, placed on DKA protocol. Electrolytes were treated as appropriate. These have normalized. Blood sugars have been in the 140s to 300 range. She did have nausea and vomiting. NG tube was placed. This did resolve. The tube was able to be removed. She is able to tolerate a diabetic diet without any further nausea and vomiting. She has completely awake, alert and oriented. In discussing with the patient, she did state that she filled her medications on discharge and was taking her insulin as prescribed, although she does have a hemoglobin A1c of 13, and when given her Levemir 20 units as previously ordered at 20 units b.i.d. as what was ordered at home blood sugars dropped into the 40s and 60s. Therefore, she will be discharged on Levemir 15 units subcutaneous b.i.d. Once again, we did discuss with the patient the perils of not treating her blood sugar with end-organ damage being her blood sugar and [*] we did discuss end-organ damage, i.e., losing her vision, blindness, heart disease, kidney failure gastroparesis, peripheral neuropathy, etc. to which she did voice understanding. DISCHARGE VITAL SIGNS: Blood pressure is 107/72, with a heart rate of 97, respirations 20, temperature 98 oral with room air sats 100%. DISCHARGE PHYSICAL EXAMINATION: Cardiovascular: Regular rate and rhythm. S1 and S2 are appreciated. Extremities: She has no lower extremity edema. Calves are nontender bilaterally with peripheral pulses palpable x 4 extremities. Lungs: Pulmonary breath sounds clear. No increased work of breathing noted. Gastrointestinal: Abdomen is soft, nontender, nondistended. Bowel sounds in all 4 quadrants. Neurologic: She is alert oriented x 3. Cranial nerves 2-12 grossly intact. FOLLOWUP: She is to follow up her primary care physician. She needs to call in the morning to schedule an appointment. She has been [facility] as well as the number to call for physicians accepting new patients. She has been instructed to call to be seen sooner or return to the ER for any syncope, dizziness, chest pain, palpitations, any nausea, vomiting, any black or bloody vomitus or stools, any change in mental status, any hematuria, dysuria, frequency, urgency, temperature greater than 101 or for any questions or concerns that she may have or blood sugar greater than 250. She is being discharged home in stable condition with family members. TIME SPENT: This is a greater than 30 minute discharge. Dictated by ANGELA Norton for Krishan Berrios MD cc: ANGELA Norton MD
== END 2018-09-15 16:35 | disposition home or self-care (01) | DRG 637 ==
LOC: ED 18:25 → ICU 22:05 → SUATTDRO 22:05 → 3S 09-13 10:24 → 4N 09-14 16:06
PROVIDERS: ATTEND Internal Medicine
CPT/HCPCS: 51702; 70450; 71010; 71045; 74000; 74018; 80048; 80053; 80101; 80301; 80307; 80324; 80345; 80346; 80353; 80358; 80361; 80365; 81001; 81025; 82009; 82150; 82271; 82550; 82805; 82947; 82948; 83036; 83605; 83690; 83735; 83992; 84100; 84134; 84295; 84484; 85025; 85610; 85730; 87040; 87088; 93005; 96361; 96365; 96366; 96375; 97162; 97530; 99285; 99291; A9270; C9113; G0431; G0434; G0479; G0480; J0696; J1815; J2020; J2060; J2405; J2543; J3370; J3475; J3480; J7030; J7042; J7050; J7060; J7070; S0164; XXXXX

== ENCOUNTER 2018-11-11 10:57 | Inpatient (IN) ==
[2018-11-11] MEDS ORDERED: NS 1,000 ML IV ONE ×2 (12:03→15:33)
[2018-11-11] MEDS ORDERED: HUMULIN R SUBQ ONE (12:03)
[2018-11-11] MEDS ORDERED: TYLENOL PO ONE (12:03)
[2018-11-11] MEDS ORDERED: HUMULIN R 100 UNIT in NS 100 ML IV SCH ×2 (12:15→15:43)
--- NOTE | 2018-11-11 12:20 | EKG Report ---
Test Performed on : 11/11/2018 12:12:50 PM Test Reason : dka Blood Pressure : / mmHG Vent. Rate : 115 BPM Atrial Rate : 115 BPM P-R Int : 120 ms QRS Dur : 078 ms QT Int : 320 ms P-R-T Axes : 068 080 056 degrees QTc Int : 442 ms Sinus tachycardia. Biatrial enlargement Abnormal ECG When compared with ECG of 09-SEP-2018 18:39, Non-specific change in ST segment in Inferior leads Non-specific change in ST segment in Anterior leads Nonspecific T wave abnormality no longer evident in Anterior leads Unconfirmed Result
[2018-11-11 12:21] LABS: ALLEN TEST NO; BE -11.7 mmoll (-3.0-3.0); BLOOD TYPE ARTERIAL; HCO3-(ACT) 15.8 mmoll (20.0-26.0); METHB 0.2 % (0.0-1.5); O2(CT) 17.5 mL/dL (15.0-23.0); O2HB 96.1 % (95.0-99.0); PCO2(98.6) 29 mmHg (35-45); PO2(98.6) 92 mmHg (60-100); SAMPLE BLOOD; SAO2 97.1 % (95.0-100.0); THB 12.9 g/dL (11.5-17.4); pH(98.6) 7.28 (7.35-7.45)
[2018-11-11 12:22] LABS: MODALITY ROOM AIR
[2018-11-11 12:50] LABS: AGAP 34; ALB/GLOB RATIO 1.4; ALBUMIN 4.8 g/dL (3.5-5.0); ALKALINE PHOSPHATASE 137 U/L (32-104); BUN 20 mg/dL (8-22); CHLORIDE 79 mmol/L (98-107); COSMO 294; CREATININE 1.2 mg/dL (0.5-0.9); ESTIMATED GFR 50; GOT 61 U/L (10-30); GPT 60 U/L (10-36); SODIUM 125 mmol/L (136-145); TCO2 12 mmol/L (25-35); TOTAL BILIRUBIN 0.15 mg/dL (0.20-1.00); TOTAL PROTEIN 8.2 g/dL (6.3-8.3)
[2018-11-11 12:51] LABS: ACETONE SERUM LARGE (NEGATIVE); GLUCOSE 822 mg/dL (70-104)
[2018-11-11 12:59] LABS: BASO# 0.02 X1000 (0.0-0.2); BASO% 0.6 % (0.0-0.8); HEMATOCRIT 43.4 % (37.0-47.0); HEMOGLOBIN 13.9 g/dL (12.0-16.0); IMM GRAN# 0.02 X1000 (0.0-0.04); IMM GRAN% 0.6 % (0.0-0.5); LYMPH# 1.03 X1000 (1.2-3.4); LYMPH% 30.4 % (20.5-51.1); MCH 27.5 PG (27-31); MCV 85.9 FL (81-99); MONO# 0.33 X1000 (0.11-0.59); MONO% 9.7 % (1.7-9.3); MPV 11.1 FL (7.4-10.4); NEUT# 1.99 X1000 (1.4-6.5); NEUT% 58.7 % (42.2-75.2); PLT 312 X1000 (130-400); RBC 5.05 XMIL (4.2-5.4); RDW 14.8 % (11.5-14.5); WBC 3.39 X1000 (4.8-10.8)
[2018-11-11 14:01] LABS: BILIRUBIN URINE NEGATIVE (NEGATIVE); BLOOD URINE NEGATIVE (NEGATIVE); COLOR YELLOW; GLUCOSE URINE >1000 mg/dL (NEGATIVE); KETONE URINE 150 mg/dL (NEGATIVE); LEUKOCYTES URINE NEGATIVE (NEGATIVE); NITRITE URINE NEGATIVE (NEGATIVE); PROTEIN URINE TRACE mg/dL (NEGATIVE); SP GRAVITY URINE 1.024; TURBIDITY URINE CLEAR (CLEAR); UR EPITHELIAL CELLS <10 /HPF (<10); URINE BACTERIA NEGATIVE /HPF; URINE RBC <10 /HPF (<10); URINE SOURCE CLEAN CATCH; URINE WBC <10 /HPF (<10); UROBILINOGEN URINE NORMAL (NORMAL)
[2018-11-11] MEDS ORDERED: ZOFRAN IV ONE (14:11)
[2018-11-11] MEDS ORDERED: DILAUDID IV ONE (14:11)
--- NOTE | 2018-11-11 15:34 | PROVIDER DOCUMENTATION ---
This chart was entered by Deanna Roche Scribe, acting as scribe for Taj Burnham MD. HPI-General Adult - General Chief Complaint: High Blood Sugar Stated Complaint: HIGH BLOOD SUGAR Time Seen by Provider: 11/11/18 11:39 Source: patient Allergies/Adverse Reactions: Patient Allergies Allergy/AdvReac Type Severity Reaction Status Date / Time No Known Allergies Allergy Verified 07/04/17 08:25 Home Medications: Home Medication List Medication Instructions Recorded Confirmed Last Taken Type Hydrocodone/APAP 10 mg/325 mg 1 ea PO Q4H PRN PRN #15 tab 09/15/18 Unknown Rx [[place]-10] Insulin Detemir [Levemir] 15 unit SUBQ BID #0 insuln.pen 09/15/18 09/15/18 Unknown Rx - History of Present Illness -Gen Adult Nature of Presenting Problems: Patient is a 43 year old female who presents with elevated blood sugar. Patient states having nausea and vomiting this morning. Reports history of DKA. States the last time she checked her blood sugar, her finger stick was 300. Reports taking Novolog and Levemir. Location of Pain/Injury: reports: none Pain Radiation: reports: no radiation Quality of Pain: reports: none Severity: reports: mild Onset/Duration: reports: this morning Timing: reports: still present Context/Activities at Onset: reports: light activity Associated Symptoms: reports: nausea, vomiting Similar Symptoms Previously?: Yes Recently seen or treated by another doctor?: Yes Review of Systems - Adult - REVIEW OF SYSTEMS - ADULT Constitutional: reports: no symptoms reported. denies: chills, fever, fatique Eyes: reports: no symptoms reported Ears, Nose, Mouth & Throat: reports: no symptoms reported Cardiovascular: reports: no symptoms reported Respiratory: reports: no symptoms reported Gastrointestinal: reports: see HPI, nausea, vomiting. denies: diarrhea Genitourinary: reports: no symptoms reported. denies: dysuria, hematuria, urinary retention Musculoskeletal: reports: no symptoms reported Integumentary: reports: no symptoms reported Neurological: reports: no symptoms reported Psychiatric: reports: no symptoms reported Endocrine: reports: no symptoms reported Hematologic/Lymphatic: reports: no symptoms reported Allergic/Immunologic: reports: no symptoms reported All Other Systems: Reviewed and Negative Past History - Adult - PAST MEDICAL HISTORY-ADULT Review of Records: reports: Old Records Reviewed, Nursing Assessment Review, Medications Reviewed, Social history reviewed & non-contributory. Major Childhood Illnesses: reports: denies history Cardiovascular: reports: hyperlipidemia Respiratory: reports: denies history Gastrointestinal: reports: GERD Obstetrical/Gynecological: reports: denies history Genitourinary: reports: kidney disease, chronic UTI's, other (ARF) Musculoskeletal: reports: denies history Neurological: reports: Seizures/Epilepsy Psychiatric: reports: anxiety, depression Endocrine/Immune: reports: Diabetes Other Conditions: reports: denies history Additional History: Frequent ER visits - PRIOR SURGERIES/PROCEDURES Surgical/Procedure History: reports: cholecystectomy, BTL, , tonsillectomy - PRIOR HOSPITALIZATIONS Prior Hospitalizations: reports: for similar symptoms - IMMUNIZATION STATUS Childhood Immunizations: See Nurse Assessment Flu Vaccine: See Nurse Assessment - FAMILY HISTORY Family History: diabetes - SOCIAL HISTORY Smoking: cigarettes, less than 1 pack/day Provider spent 3-5 mins advising pt. on dangers of tobacco.: Discussed manners to quit use, and f/u contacts for add'l counseling. Substance Use: denies Physical Exam-General - PHYSICAL EXAM-ADULT Initial Vital Signs Reviewed: Yes - CONSTITUTIONAL General Appearance: alert, no apparent distress. negative: lethargic - RESPIRATORY Respiratory: chest non-tender, lungs clear, normal breath sounds. negative: crackles, rhonchi - CARDIOVASCULAR Cardiovascular: normal peripheral pulses, tachycardia. negative: systolic murmur - GASTROINTESTINAL (ABDOMEN) Abdominal Exam: normal bowel sounds, soft, tenderness (suprapubic). negative: guarding - MUSCULOSKELETAL Extremity: non-tender, normal inspection. negative: deformity - SKIN Integumentary: normal color, normal turgor, warm/dry. negative: diaphoresis, ecchymosis, rash - NEUROLOGIC Neurologic: grossly normal. negative: aphasia, facial droop - PSYCHIATRIC Psych/Mental Status: normal mood/affect, oriented x 3. negative: anxious Progress - PLAN OF CARE/RESULTS Progress/Plan/Lab Results: Vital Signs - 8 hr 11/11/18 11:14 Temperature 97.7 F Pulse Rate 108 H Respiratory Rate 18 Blood Pressure 121/95 O2 Sat by Pulse Oximetry 96 Laboratory Results - last 24 hr 11/11/18 11:14 POC Glucose 500 H Result Diagrams: 11/11/18 11:10 11/11/18 11:10 - EKG 1 Time of EKG reading by physician:: 12:12 EKG Read and Signed by:: Taj Burnham EKG Interpretation (*Must complete 3 of following elements*): Abnormal Rate: 115 Rhythm: sinus tachycardia [place]: normal NH Interval: normal Comments: biatrial enlargement - CONSULTS/PCP/HOSPITALIST Notification #1 *Consult/PCP/Hospitalist*: ANGELA Clark for Hospitalist Time Discussed: 13:21 Reason/Comments: Dr. Burnham consulted with Amber about patient. Consult Disposition: Will see in ED, Admit Departure - Departure Date of Disposition Decision: 11/11/18 Time of Disposition Decision: 13:22 DIAGNOSIS: Diabetic ketoacidosis Disposition: ADMITTED INPATIENT 09 Certified Medical Emergency: Emergent Condition: Fair Referrals and Follow-Ups: None,PCP [Primary Care Provider] - - Critical Care Note This patient required my direct & personal management of CC.: Yes Total Time (mins): 33 Critical Care Statement: This patient required my direct personal management to treat or rule out processes, the absence of which, could potentiallly result in sudden, clinically significant life or limb threatening deterioration. Attestation - Physician/ KIAN Attestation The physician spent face to face time with patient:: Yes Advanced Practice Provider documentation review:: Supervising physician onsite and consulted in the evaluation and care of this patient. The physician did have a face to face encounter with the patient. This chart was documented by the indicated scribe, (Deanna Roche Scribe) and accurately reflects the services I performed and decisions made by me, Taj Burnham MD, as attested by the provider's signature.
[2018-11-11] MEDS ORDERED: POTASSIUM CHLORIDE 40 MEQ in NS 250 ML IV PRN (15:43)
[2018-11-11] MEDS ORDERED: SODIUM BICARBONATE 8.4% 100 MEQ in STERILE WATER INJ. 500 ML IV PRN (15:43)
[2018-11-11] MEDS ORDERED: SODIUM PHOSPHATE 30 MMOL in D5W 250 ML IV PRN (15:43)
[2018-11-11] MEDS ORDERED: POTASSIUM CHLORIDE 20 MEQ in NS 100 ML IV PRN (15:43)
[2018-11-11] MEDS ORDERED: D5 NS 1,000 ML IV PRN (15:43)
[2018-11-11] MEDS ORDERED: POTASSIUM CHLORIDE 20% LIQUID PO PRN (15:43)
[2018-11-11] MEDS ORDERED: TYLENOL PR PRN (15:43)
[2018-11-11] MEDS ORDERED: COMPAZINE PR PRN (15:43)
[2018-11-11] MEDS ORDERED: ZOFRAN IV PRN (15:43)
[2018-11-11] MEDS ORDERED: POTASSIUM CHLORIDE 10% LIQUID PO PRN (15:43)
[2018-11-11] MEDS ORDERED: D50W SYRINGE IV PRN (15:43)
[2018-11-11] MEDS ORDERED: NS 1,000 ML IV SCH (15:43)
[2018-11-11] MEDS: NS 1,000 ML IV SCH ×4 (16:00→19:09)
[2018-11-11 17:00] LABS: AGAP 17; BUN 20 mg/dL (8-22); CALCIUM 9.1 mg/dL (8.8-10.2); CHLORIDE 97 mmol/L (98-107); COSMO 273; CREATININE 0.9 mg/dL (0.5-0.9); ESTIMATED GFR > 60; GLUCOSE 141 mg/dL (70-104); MAGNESIUM 1.6 mg/dL (1.5-2.7); POTASSIUM 4.2 mmol/L (3.5-5.1); SODIUM 134 mmol/L (136-145); TCO2 20 mmol/L (25-35)
[2018-11-11] MEDS: MAGNESIUM SULFATE 2 GM/S.W.I. 2 GM/50 ML IVPB IV PRN ×2 (17:22→23:43)
--- NOTE | 2018-11-11 17:44 | HISTORY AND PHYSICAL ---
PRIMARY CARE PROVIDER: None. CHIEF COMPLAINT: Hyperglycemia. HISTORY OF PRESENT ILLNESS: Ms. Mallory is a 43-year-old female, well known to our service for type 1 diabetes and multiple admissions for DKA for medical noncompliance, GERD, who presented to the ED complaining of elevated blood glucose, nausea, vomiting. Workup in the ED revealed DKA. She was initiated on the DKA protocol and admitted to the ICU. She reported a dry cough, some chills, subjective fever. had a recent sinus infection. She is complaining of some back pain where she had some type of wound that is currently healed. She got relief with intravenous Dilaudid in the ED. PAST MEDICAL HISTORY: Diabetes mellitus type 1, poor medical noncompliance, GERD, hyperlipidemia. PAST SURGICAL HISTORY: Cholecystectomy, tonsillectomy. ALLERGIES: No known drug allergies. HOME MEDICATIONS: Please see EMR. Currently being compiled. SOCIAL HISTORY: One [id number] smoker. History of alcohol use. History of illicit drug use. FAMILY HISTORY: No history of coronary artery disease. REVIEW OF SYSTEMS: Completely negative except for those mentioned in HPI. PHYSICAL EXAMINATION: VITAL SIGNS: Temperature is 97.7 degrees, heart rate 99, respirations 18, blood pressure 100/66, O2 is 99% on room air. GENERAL: Ms. Mallory is a 43-year-old female, who is sitting up in the bed in the ICU in no acute distress. HEENT: Atraumatic, normocephalic. PERRL. NECK: Supple. Trachea midline. CARDIOVASCULAR: S1, S2 appreciated. No murmurs, gallops, rubs or noted. RESPIRATORY: Lung sounds clear bilaterally. GASTROINTESTINAL: Soft, nontender, nondistended. Positive bowel sounds 4 quadrants. EXTREMITIES: Negative for edema. NEUROLOGIC: Patient is awake, alert, follows commands, moves all extremities. SKIN: Appears to be warm, dry, and intact. DIAGNOSTIC DATA: None. LABORATORY DATA: White count 3, hemoglobin 13, hematocrit 43, platelet count 312,000. ABG with a pH of 7.28, pCO2 of 29, base excess -11. Lactate 1.5. Sodium initially 125, potassium 5.0, chloride 79, carbon dioxide 12, ion gap 34, BUN 20, creatinine 1.2, blood glucose was 822. AST 61, ALT 60, alkaline phosphatase 137. Large acetone. ASSESSMENT AND PLAN: 1. Diabetic ketoacidosis and type 1 diabetes. We will continue in the ICU with aggressive IV hydration and DKA protocol. 2. Gastroesophageal reflux disease. 3. Poor medical compliance. 4. Acute kidney injury. Continue with aggressive IV hydration. 5. Back pain. We will continue with low-dose Dilaudid. Further recommendations to follow physician evaluation and laboratory and diagnostic data. Dictated by ANGELA Mohamud for Sotero Sawant MD cc: Sotero Sawant MD [facility]
[2018-11-11 17:49] LABS: URINE SOURCE CATH
[2018-11-11 17:58] LABS: BILIRUBIN URINE NEGATIVE (NEGATIVE); BLOOD URINE NEGATIVE (NEGATIVE); COLOR YELLOW; GLUCOSE URINE >1000 mg/dL (NEGATIVE); KETONE URINE 150 mg/dL (NEGATIVE); LEUKOCYTES URINE NEGATIVE (NEGATIVE); NITRITE URINE NEGATIVE (NEGATIVE); PROTEIN URINE TRACE mg/dL (NEGATIVE); SP GRAVITY URINE 1.023; TURBIDITY URINE CLEAR (CLEAR); UROBILINOGEN URINE NORMAL (NORMAL)
[2018-11-11 18:00] LABS: UR EPITHELIAL CELLS <10 /HPF (<10); URINE BACTERIA NEGATIVE /HPF; URINE RBC <10 /HPF (<10); URINE WBC <10 /HPF (<10)
[2018-11-11] MEDS: DILAUDID IV PRN ×2 (19:08→23:11)
--- NOTE | 2018-11-11 19:31 | HISTORY AND PHYSICAL ---
SUBJECTIVE: The patient still has a lot of pain and discomfort and things of that nature. She is here for nausea, vomiting, abdominal pain. She has issues with recurrent DKA, and she is having DKA currently with hyperglycemia and metabolic acidosis. Her exam is really unremarkable. She kind of has a rheumy cough, but her lung exam is relatively clear. We will continue to monitor her under DKA protocol and continue supportive care. This is a [id number] encounter note with Fiorella Walker. cc: Sotero Sawant MD
[2018-11-11 23:08] LABS: AGAP 11; BUN 13 mg/dL (8-22); CALCIUM 7.7 mg/dL (8.8-10.2); CHLORIDE 105 mmol/L (98-107); COSMO 270; CREATININE 0.4 mg/dL (0.5-0.9); ESTIMATED GFR > 60; GLUCOSE 122 mg/dL (70-104); MAGNESIUM 1.7 mg/dL (1.5-2.7); PHOSPHORUS 2.6 mg/dL (2.7-4.5); POTASSIUM 4.3 mmol/L (3.5-5.1); SODIUM 134 mmol/L (136-145); TCO2 18 mmol/L (25-35)
[2018-11-12] MEDS ORDERED: HUMALOG SUBQ SCH (00:30)
[2018-11-12] MEDS: HUMALOG SUBQ SCH ×6 (01:08→21:15)
[2018-11-12] MEDS: NS 1,000 ML IV SCH ×3 (02:08→23:53)
[2018-11-12] MEDS: DILAUDID IV PRN (05:29)
[2018-11-12 05:46] LABS: BASO# 0.02 X1000 (0.0-0.2); BASO% 0.4 % (0.0-0.8); EOS# 0.02 X1000 (0.0-0.7); EOS% 0.4 % (0.0-10.0); HEMATOCRIT 33.7 % (37.0-47.0); HEMOGLOBIN 11.3 g/dL (12.0-16.0); LYMPH# 2.43 X1000 (1.2-3.4); LYMPH% 48.8 % (20.5-51.1); MCH 28.2 PG (27-31); MCHC 33.5 g/dL (33-37); MONO# 0.21 X1000 (0.11-0.59); MONO% 4.2 % (1.7-9.3); MPV 9.6 FL (7.4-10.4); NEUT% 46.2 % (42.2-75.2); PLT 216 X1000 (130-400); RBC 4.01 XMIL (4.2-5.4); RDW 14.7 % (11.5-14.5); WBC 4.98 X1000 (4.8-10.8)
[2018-11-12 05:58] LABS: MAGNESIUM 1.9 mg/dL (1.5-2.7); PHOSPHORUS 2.3 mg/dL (2.7-4.5)
[2018-11-12 06:03] LABS: AGAP 11; BUN 7 mg/dL (8-22); CALCIUM 7.9 mg/dL (8.8-10.2); CHLORIDE 102 mmol/L (98-107); COSMO 263; CREATININE 0.4 mg/dL (0.5-0.9); ESTIMATED GFR > 60; GLUCOSE 113 mg/dL (70-104); SODIUM 132 mmol/L (136-145); TCO2 19 mmol/L (25-35)
[2018-11-12] MEDS ORDERED: LEVEMIR SUBQ ONE (08:50)
[2018-11-12] MEDS ORDERED: INSULIN PEN NEEDLES ONE ×2 (09:35→20:57)
--- NOTE | 2018-11-12 09:41 | PROGRESS NOTE ---
DATE: 11/12/2018 SUBJECTIVE: Patient has no major complaints. She is still complaining of nausea, but she is also requesting to eat. Her sugars dropped last night and insulin drip was turned off. OBJECTIVE: Vital Signs: Blood pressure 103/71, heart rate 92, respiratory 13, temperature 98.3 degrees, satting 98% on room air. Cardiovascular: Regular rate and rhythm. Pulmonary: Bilateral breath sounds. Clear to auscultation. GI: Soft, nontender, nondistended. Bowel sounds were positive. LABORATORY DATA: White count is 4, H and H 11 and 33, platelets 216. Sodium 132, phosphatase is 2.3. PROBLEM LIST: 1. Diabetic ketoacidosis that has now since resolved. We will switch her back to her Levemir. She reports she takes 20 twice daily. Continue sliding scale insulin. Advance diet. 2. Nausea. Continue antiemetics and follow. Try to switch her over from intravenous pain medication. 3. Hypophosphatemia. We will supplement and follow. 4. Elevated liver enzymes. Order right upper quadrant today, and hepatitis panel is pending. DISPOSITION: I anticipate if sugars are stable. Discharge tomorrow. cc: Sotero Sawant MD
[2018-11-12] MEDS: NORCO-10 PO PRN ×3 (09:47→20:27)
[2018-11-12 10:47] LABS: AGAP 10; ALB/GLOB RATIO 1.3; ALBUMIN 2.9 g/dL (3.5-5.0); ALKALINE PHOSPHATASE 81 U/L (32-104); BUN 6 mg/dL (8-22); CALCIUM 7.4 mg/dL (8.8-10.2); CHLORIDE 99 mmol/L (98-107); COSMO 268; CREATININE 0.4 mg/dL (0.5-0.9); ESTIMATED GFR > 60; GLUCOSE 275 mg/dL (70-104); GOT 124 U/L (10-30); GPT 69 U/L (10-36); POTASSIUM 4.3 mmol/L (3.5-5.1); SODIUM 130 mmol/L (136-145); TCO2 21 mmol/L (25-35); TOTAL BILIRUBIN < 0.15 mg/dL (0.20-1.00); TOTAL PROTEIN 5.1 g/dL (6.3-8.3)
--- NOTE | 2018-11-12 15:59 | Diag Imaging Result Doc PS360 ---
EXAM: US GB < RUQ (LIMITED) 11/12/2018 HISTORY: elevated liver enzymes TECHNIQUE: Abdominal ultrasound COMMENT: The liver is hyperechoic. The aorta and inferior vena cava are within normal limits where they are visible. The pancreatic head is normal in appearance. The remainder is obscured. There is antegrade flow in the portal vein. The common bile duct is distended to 9 mm. This has increased from less than 5 mm on 03/03/2018. The patient is post cholecystectomy and this may be physiologic. The spleen is not enlarged. The kidneys are without evidence of hydronephrosis or mass. IMPRESSION: Hepatic steatosis. Distention of the common bile duct which may be physiologic. Advise correlation with laboratory findings. Electronically signed by Steven Haines 11/12/2018 3:57 PM
[2018-11-12] MEDS ORDERED: LEVEMIR SUBQ SCH (21:00)
[2018-11-12] MEDS: LEVEMIR SUBQ SCH (21:03)
[2018-11-13] MEDS: HUMALOG SUBQ SCH ×6 (00:30→21:54)
[2018-11-13] MEDS: NORCO-10 PO PRN ×4 (01:05→21:55)
[2018-11-13 08:07] LABS: BASO# 0.01 X1000 (0.0-0.2); BASO% 0.3 % (0.0-0.8); EOS# 0.01 X1000 (0.0-0.7); EOS% 0.3 % (0.0-10.0); HEMATOCRIT 31.6 % (37.0-47.0); HEMOGLOBIN 10.2 g/dL (12.0-16.0); LYMPH# 2.29 X1000 (1.2-3.4); LYMPH% 59.3 % (20.5-51.1); MCH 27.7 PG (27-31); MCHC 32.3 g/dL (33-37); MCV 85.9 FL (81-99); MONO# 0.14 X1000 (0.11-0.59); MONO% 3.6 % (1.7-9.3); MPV 9.9 FL (7.4-10.4); NEUT# 1.41 X1000 (1.4-6.5); NEUT% 36.5 % (42.2-75.2); PLT 187 X1000 (130-400); RBC 3.68 XMIL (4.2-5.4); RDW 15.2 % (11.5-14.5); WBC 3.86 X1000 (4.8-10.8)
[2018-11-13] MEDS: LEVEMIR SUBQ SCH ×2 (08:59→21:54)
[2018-11-13 11:51] LABS: AGAP 10; BUN 5 mg/dL (8-22); CALCIUM 8.2 mg/dL (8.8-10.2); CHLORIDE 99 mmol/L (98-107); COSMO 268; CREATININE 0.5 mg/dL (0.5-0.9); ESTIMATED GFR > 60; GLUCOSE 110 mg/dL (70-104); SODIUM 135 mmol/L (136-145); TCO2 26 mmol/L (25-35)
[2018-11-13 11:56] LABS: MAGNESIUM 1.4 mg/dL (1.5-2.7); PHOSPHORUS 3.4 mg/dL (2.7-4.5)
--- NOTE | 2018-11-13 12:14 | Diag Imaging Result Doc PS360 ---
EXAM: CHEST-2 VIEWS HISTORY: R/O pneumonia TECHNIQUE: Chest two views COMPARISON: 09/15/2018 FINDINGS: The lungs are well expanded. The heart is not enlarged. The vessels are not distended. There are no infiltrates. Trace pleural fluid. IMPRESSION: No pneumonia Electronically signed by Sekou Li 11/13/2018 12:12 PM
[2018-11-13 13:09] LABS: HEPATITIS PROFILE ACUTE SEE COMMENTS
[2018-11-13] MEDS ORDERED: MAGNESIUM SULFATE 2 GM/S.W.I. 2 GM/50 ML IVPB IV ONE (14:45)
--- NOTE | 2018-11-13 15:09 | PROGRESS NOTE ---
DATE: 11/13/2018 SUBJECTIVE: This patient is complaining of back pain and thoracic pain on her back as well. She has an old scar on the posterior area of her thorax on the right side, which is completely healed, but is painful to palpation. I do not see any signs of infection or fluctuation. She is really weak, so I have requested Physical Therapy and Occupational Therapy to evaluate this patient. She had an episode of hypoglycemia. The blood sugar dropped to the 60s. I have decreased the dose of Detemir from 20 twice a day to 15 twice a day, which is her home dose, as per the patient. OBJECTIVE: Vital Signs: Temperature 98 degrees, pulse 67, respiratory rate 20, blood pressure 112/76, oxygen saturation 98 on room air. HEENT: Head normocephalic. No trauma. PERRLA. Neck: Supple. No JVD. No masses. Central trachea. Chest: Clear to auscultation. No wheezing. No rales. Some crepitus at the bases. Right posterior thoracic area with an old scar that is painful to palpation, but no signs of infection . Abdomen: Soft, nontender, nondistended. No hepatosplenomegaly. Extremities: No edema, no clubbing, no cyanosis. Decreased muscle mass. Neurological: The patient is alert and oriented x3. No focal deficits. LABORATORY DATA: WBC 3.8, hemoglobin 10.2, hematocrit 31.6, platelets 187,000. Sodium 135, potassium 4, chloride 99, bicarbonate 26, BUN 5, creatinine 0.5, glucose 110, calcium 8.2. Magnesium 1.4. ASSESSMENT AND PLAN: 1. Diabetic ketoacidosis, resolved. She has been placed on Levemir 20 units twice a day, but she started having hypoglycemia, symptomatic. I have switched the Levemir from 20 to 15 units twice a day, which I believe is the home dose. I will monitor this patient for one more day. She is really weak. 2. Nausea. Continue with the same management. She has been tolerating by mouth a little bit better. I will stop the intravenous fluids. 3. Hypophosphatemia, resolved. 4. Hypomagnesemia. I will replace the magnesium. 5. Elevated liver function tests. Right upper quadrant ultrasound showed hepatic steatosis, some distention of the common bile duct, which may be physiologic. This elevation of the liver function tests is chronic. It has been up and down since 2014, and probably is related to her fatty liver. 6. Hypoglycemia. I have readjusted her medications. 7. Generalized weakness and physical deconditioning. I have requested Physical Therapy and Occupational Therapy. Hopefully, this patient will go home tomorrow. I have removed the Georges catheter. cc: Gilles Enriquez MD MTDAlivia
[2018-11-14] MEDS: HUMALOG SUBQ SCH ×3 (03:53→08:54)
[2018-11-14] MEDS: NORCO-10 PO PRN ×2 (03:57→07:43)
[2018-11-14 07:59] VITALS: BP 105/78
[2018-11-14 08:24] LABS: BASO# 0.01 X1000 (0.0-0.2); BASO% 0.2 % (0.0-0.8); EOS# 0.04 X1000 (0.0-0.7); EOS% 0.9 % (0.0-10.0); HEMATOCRIT 30.5 % (37.0-47.0); HEMOGLOBIN 9.7 g/dL (12.0-16.0); LYMPH# 2.66 X1000 (1.2-3.4); MCH 27.6 PG (27-31); MCHC 31.8 g/dL (33-37); MCV 86.6 FL (81-99); MONO# 0.32 X1000 (0.11-0.59); MONO% 7.1 % (1.7-9.3); MPV 10.5 FL (7.4-10.4); NEUT# 1.48 X1000 (1.4-6.5); NEUT% 32.8 % (42.2-75.2); PLT 170 X1000 (130-400); RBC 3.52 XMIL (4.2-5.4); WBC 4.51 X1000 (4.8-10.8)
[2018-11-14 08:56] LABS: AGAP 11; ALB/GLOB RATIO 1.2; ALBUMIN 3.2 g/dL (3.5-5.0); ALKALINE PHOSPHATASE 82 U/L (32-104); BUN 7 mg/dL (8-22); CALCIUM 8.8 mg/dL (8.8-10.2); CHLORIDE 97 mmol/L (98-107); COSMO 274; CREATININE 0.5 mg/dL (0.5-0.9); ESTIMATED GFR > 60; GLUCOSE 166 mg/dL (70-104); GOT 63 U/L (10-30); GPT 54 U/L (10-36); SODIUM 136 mmol/L (136-145); TCO2 28 mmol/L (25-35); TOTAL BILIRUBIN < 0.15 mg/dL (0.20-1.00); TOTAL PROTEIN 5.8 g/dL (6.3-8.3)
[2018-11-14] MEDS: LEVEMIR SUBQ SCH (09:21)
--- NOTE | 2018-11-14 20:58 | DISCHARGE SUMMARY ---
ADMISSION DATE: 11/11/2018 DISCHARGE DATE: 11/14/2018 DISCHARGE DIAGNOSES: 1. Diabetic ketoacidosis, resolved. 2. Nausea, resolved. 3. Hypophosphatemia, resolved. 4. Hypomagnesemia. 5. Elevated liver function tests. 6. Episode of hypoglycemia. 7. Generalized weakness and physical deconditioning. PROCEDURE PERFORMED: Abdomen ultrasound dated 11/12/2018 impression, hepatic steatosis, distention of the common bile duct which may be physiologic. Chest x-ray dated 11/13/2018 impression, no pneumonia. HOSPITAL COURSE: 43-year-old female well-known to our service for type 1 diabetes with multiple admissions for DKA and medical noncompliance, GERD, hyperlipidemia presented to emergency department and was admitted on 11/11/2018 due to elevated blood glucose, nausea, vomiting, workup in the emergency department revealed DKA, she was treated with DKA protocol and admitting to the ICU. She reported some dry cough, some chills and subjective fever but workup was negative, no leukocytosis, x-ray without any abnormality, the patient was improving on a daily basis. The insulin was increased a little bit and that caused some hypoglycemia but she was basically a little bit symptomatic. We readjusted the insulin and after that the blood sugar was better controlled, today this patient was feeling much better, she was tolerating p.o., she was ambulating by herself. No signs of infection. She will be discharged with a strict followup by her primary care doctor. PHYSICAL EXAMINATION: Temperature 97.8 degrees, pulse 78, respiratory rate 16, blood pressure 105/78, oxygen saturation 100% on room air. HEENT: Head normocephalic. No trauma. PERRLA. Neck: Supple. No JVD. No masses. Central trachea. Chest: Clear to auscultation. No wheezing. No rales. Abdomen: Soft, nontender, nondistended. No hepatosplenomegaly. Extremities: No edema, no clubbing, no cyanosis. Neurologic: The patient is alert, she is oriented. No deficits. LABORATORY: WBC 4.5, hemoglobin 9.7, hematocrit 30.5, platelets 170,000. Sodium 136, potassium 4, chloride 97, bicarbonate 28, BUN 7, creatinine 0.5, glucose 166, calcium 8.8, AST 63, ALT 54, alkaline phosphatase 82, albumin 3.2. DISCHARGE MEDICATIONS: [place] 10 one tablet p.o. q.4 hours as needed for pain and insulin detemir 15 units subcutaneous b.i.d., the rest of the medication will be prescribed by her primary care doctor. She will need to follow up with this primary care doctor in a week. As per the patient she is not on any other medications. cc: Gilles Enriquez MD
== END 2018-11-14 09:42 | disposition home or self-care (01) | DRG 638 ==
LOC: SUPCPDRO → ED 10:57 → SUATTDRO 14:13 → EDIPHOLD 14:13 → ICU 15:26 → 3N 11-12 19:45
PROVIDERS: ATTEND Internal Medicine

== ENCOUNTER 2018-11-20 14:43 | Inpatient (IN) ==
[2018-11-20] MEDS ORDERED: NS 1,000 ML IV ONE ×2 (15:23→17:19)
[2018-11-20 15:36] LABS: INR 1.09; PROTIME 14.3 Seconds (11.0-16.0)
[2018-11-20 15:37] LABS: PTT 28.9 Seconds (22.3-41.8)
[2018-11-20 15:41] LABS: ESTIMATED GFR > 60
[2018-11-20 15:42] LABS: BASO# 0.01 X1000 (0.0-0.2); BASO% 0.1 % (0.0-0.8); EOS# 0.38 X1000 (0.0-0.7); EOS% 3.3 % (0.0-10.0); HEMATOCRIT 36.6 % (37.0-47.0); HEMOGLOBIN 12.1 g/dL (12.0-16.0); IMM GRAN# 0.03 X1000 (0.0-0.04); IMM GRAN% 0.3 % (0.0-0.5); LYMPH# 1.08 X1000 (1.2-3.4); LYMPH% 9.3 % (20.5-51.1); MCH 27.3 PG (27-31); MCHC 33.1 g/dL (33-37); MCV 82.6 FL (81-99); MONO# 0.48 X1000 (0.11-0.59); MONO% 4.1 % (1.7-9.3); MPV 10.6 FL (7.4-10.4); NEUT# 9.67 X1000 (1.4-6.5); NEUT% 82.9 % (42.2-75.2); PLT 386 X1000 (130-400); RBC 4.43 XMIL (4.2-5.4); RDW 14.3 % (11.5-14.5); WBC 11.65 X1000 (4.8-10.8)
[2018-11-20 15:43] LABS: ALLEN TEST YES; BE 9.2 mmoll (-3.0-3.0); BLOOD TYPE ARTERIAL; METHB 0.5 % (0.0-1.5); MODALITY ROOM AIR; O2(CT) 17.8 mL/dL (15.0-23.0); O2HB 94.6 % (95.0-99.0); PCO2(98.6) 39 mmHg (35-45); PO2(98.6) 70 mmHg (60-100); SAMPLE BLOOD; SAO2 96.6 % (95.0-100.0); THB 13.4 g/dL (11.5-17.4); pH(98.6) 7.53 (7.35-7.45)
--- NOTE | 2018-11-20 15:43 | PROVIDER DOCUMENTATION ---
HPI-General Adult - General Chief Complaint: DKA ALERT Stated Complaint: hyperglycemia Time Seen by Provider: 11/20/18 14:54 Source: patient Allergies/Adverse Reactions: Patient Allergies Allergy/AdvReac Type Severity Reaction Status Date / Time No Known Allergies Allergy Verified 11/20/18 15:27 Home Medications: Home Medication List Medication Instructions Recorded Confirmed Last Taken Type Hydrocodone/APAP 10 mg/325 mg 1 ea PO Q4H PRN PRN #10 tab 11/14/18 11/20/18 Unknown Rx [[place]-10] Insulin Detemir [Levemir] 15 unit SUBQ BID #1 insuln.pen 11/14/18 11/20/18 Unknown Rx - History of Present Illness -Gen Adult Nature of Presenting Problems: 43yof present to ER with c/o R sided abd pain and high blood sugar. Pt states she was discharged last week from here for DKA. Pt states her blood sugar has been reading high. Pt has hx of gastroparesis. Location of Pain/Injury: reports: abdomen (R) Pain Radiation: reports: no radiation Quality of Pain: reports: sharp Onset/Duration: reports: last week Timing: reports: still present Associated Symptoms: reports: nausea, vomiting. denies: diarrhea, fever/chills, genitourinary problems, shortness of breath - Diabetes Related Context Context: reports: high blood sugar, prior DKA hospitalization Review of Systems - Adult - REVIEW OF SYSTEMS - ADULT Constitutional: reports: no symptoms reported. denies: chills, fever Eyes: reports: no symptoms reported Ears, Nose, Mouth & Throat: reports: no symptoms reported Cardiovascular: reports: no symptoms reported. denies: chest pain Respiratory: reports: no symptoms reported Gastrointestinal: reports: see HPI, abdominal pain, nausea, vomiting. denies: diarrhea Genitourinary: reports: no symptoms reported. denies: dysuria, frequency, urgency Musculoskeletal: reports: no symptoms reported Integumentary: reports: no symptoms reported Neurological: reports: no symptoms reported Psychiatric: reports: no symptoms reported Endocrine: reports: no symptoms reported Hematologic/Lymphatic: reports: no symptoms reported Allergic/Immunologic: reports: no symptoms reported All Other Systems: Reviewed and Negative Past History - Adult - PAST MEDICAL HISTORY-ADULT Review of Records: reports: Old Records Reviewed, Nursing Assessment Review, Medications Reviewed, Social history reviewed & non-contributory. Major Childhood Illnesses: reports: denies history Cardiovascular: reports: hyperlipidemia Respiratory: reports: denies history Gastrointestinal: reports: GERD Obstetrical/Gynecological: reports: denies history Genitourinary: reports: kidney disease, chronic UTI's, other (ARF) Musculoskeletal: reports: denies history Neurological: reports: Seizures/Epilepsy Psychiatric: reports: anxiety, depression Endocrine/Immune: reports: Diabetes Other Conditions: reports: denies history Additional History: Frequent ER visits - PRIOR SURGERIES/PROCEDURES Surgical/Procedure History: reports: cholecystectomy, BTL, , tonsille ctomy - PRIOR HOSPITALIZATIONS Prior Hospitalizations: reports: for similar symptoms - IMMUNIZATION STATUS Childhood Immunizations: See Nurse Assessment Flu Vaccine: See Nurse Assessment - FAMILY HISTORY Family History: diabetes Physical Exam-General - PHYSICAL EXAM-ADULT Initial Vital Signs Reviewed: Yes - CONSTITUTIONAL General Appearance: alert, moderate distress, thin - EYES Eyes: pink conjunctivae - HEAD, EARS, NOSE, MOUTH & THROAT HENMT: moist mucous membranes, normal ENT inspection - NECK Neck: full range of motion, supple, normal inspection - RESPIRATORY Respiratory: lungs clear, normal breath sounds, increased rate - CARDIOVASCULAR Cardiovascular: no edema, tachycardia - GASTROINTESTINAL (ABDOMEN) Abdominal Exam: normal bowel sounds, soft, tenderness (diffuse) - LYMPHATIC Lymphatic: no adenopathy - MUSCULOSKELETAL Back Exam: normal inspection Extremity: normal range of motion, normal gait, normal inspection - SKIN Integumentary: normal color, warm/dry - NEUROLOGIC Neurologic: grossly normal - PSYCHIATRIC Psych/Mental Status: oriented x 3, anxious Progress - PLAN OF CARE/RESULTS Progress/Plan/Lab Results: Vital Signs - 8 hr 11/20/18 14:55 Temperature 100.9 F H Pulse Rate 123 H Respiratory Rate 24 Blood Pressure 120/77 O2 Sat by Pulse Oximetry 99 Laboratory Results - last 24 hr 11/20/18 11/20/18 15:05 15:11 PT 14.3 INR 1.09 PTT (Actin FS) 28.9 POC Glucose 355 H D Orders Category Date Time Status Cardiac Monitoring DIRECTED Care 11/20/18 15:12 Active Finger Stick Blood Sugar (ED) DIRECTED Care 11/20/18 14:54 Active IV Insertion ORDERED Care 11/20/18 15:12 Completed Notify MD of + Sepsis Screen NOW Care 11/20/18 15:12 Active Notify Physician As Ordered Care 11/20/18 15:12 Active CHEST-1 VIEW [RAD] Stat Exams 11/20/18 15:12 Ordered ABG [RESP] Routine Lab 11/20/18 14:54 Ordered ACETONE SERUM [CHEM] Stat Lab 11/20/18 14:59 Received BLOOD CULTURE [BLDCUL] Stat Lab 11/20/18 15:12 Uncollected CBC WITH DIFF [HEME] Stat Lab 11/20/18 14:59 Results CK PROFILE [SP CHEM] Stat Lab 11/20/18 15:05 Received COMPREHENSIVE METABOLIC PANEL [CHEM] Stat Lab 11/20/18 14:59 Received LACTATE, PLASMA [CHEM] Q3H Lab 11/20/18 15:15 Uncollected LACTATE, PLASMA [CHEM] Q3H Lab 11/20/18 18:15 Uncollected LACTATE, PLASMA [CHEM] Q3H Lab 11/20/18 21:15 Uncollected PROTIME WITH INR [COAG] Stat Lab 11/20/18 15:05 Completed PTT [COAG] Stat Lab 11/20/18 15:05 Completed TROPONIN T Stat Lab 11/20/18 15:14 Received URINALYSIS W/POSS RFLX CULT [URINALYSIS] Stat Lab 11/20/18 14:54 Uncollected URINE DRUG SCREEN Stat Lab 11/20/18 14:54 Uncollected 0.9% Sodium Chloride Inj [Ns] 1,000 ml Med 11/20/18 15:23 Active IV 999 mls/hr Oxygen Device Stat Oth 11/20/18 15:12 Active Result Diagrams: 11/20/18 14:59 11/20/18 14:59 - REASSESSMENT Reassessment #1 Time Reassessed: 19:06 (called [address] to check why pt has not been to CT yet, states they are coming to get pt.) Reassessment #2 Time Reassessed: 19:55 (Lactate has come down, HR has decreased to 100s, FSBS 99, and temp 99.7 so pt is improving. updated pt of results and need for admission. Pt requestings pain meds ) Status: improving - EKG 1 Time of EKG reading by physician:: 15:18 EKG Read and Signed by:: Darlene Garcia Rate: 127 Rhythm: Sinus tachycardia Comments: possible L atrial enlargement - XRAY 1 XRAY Study: Chest Impression: See EMR Report (FINDINGS: The lungs are well expanded. The heart is not enlarged. The vessels are not distended. There are no infiltrates. No effusion identified. Mild scoliosis. IMPRESSION: Negative exam.) - CT/MRI 1 CT Study: Abdomen, Pelvis Impression: See EMR Report (FINDINGS: There has been a prior cholecystectomy. The liver, spleen, pancreas, and adrenal glands are essentially unremarkable. There is abnormal patchy hypoenhancement involving both kidneys in a striated nephrogram pattern. This is usually indicative of pyelonephritis. Please correlate clinically. There is no hydronephrosis. Urinary bladder is distended and is grossly unremarkable, otherwise. No urinary bladder wall thickening is appreciated. The reproductive tract is grossly unremarkable as imaged. There are multiple fluid-filled loops of small bowel with minimal distention that are nonspecific and are likely related to ileus. There is nothing to suggest bowel obstruction. The remainder of the GI tract is grossly unremarkable. Near the level of the umbilicus on the left, there is mild focal skin thickening with mild underlying subcutaneous stranding. This is also seen on the previous study but is slightly more prominent. Please correlate clinically. There is no evidence of acute osseous abnormality. IMPRESSION: 1.Abnormal patchy hypoenhancement involving both kidneys in a striated nephrogram pattern. This usually indicates pyelonephritis. Please correlate clinically. 2.Fluid-filled loops of small bowel throughout the abdomen with only mild distention, nonspecific but probably related to ileus. 3.Other incidental/nonacute findings detailed above.) - CONSULTS/PCP/HOSPITALIST Notification #1 *Consult/PCP/Hospitalist*: Dr Otero Time Discussed: 19:55 Consult Disposition: Admit Departure - Departure Date of Disposition Decision: 11/20/18 Time of Disposition Decision: 19:51 DIAGNOSIS: Pyelonephritis Sepsis Qualifiers: Sepsis type: sepsis due to unspecified organism Sepsis acute organ dysfunction status: unspecified Qualified Code(s): A41.9 - Sepsis, unspecified organism Disposition: ADMITTED INPATIENT 09 Certified Medical Emergency: Emergent Condition: Fair Referrals and Follow-Ups: Buffy Johnson MD [Primary Care Provider] - - Critical Care Note This patient required my direct & personal management of CC.: No Attestation - Physician/ KIAN Attestation Patient care was provided by Advanced Practice Provider:: Yes Advanced Practice Provider:: Bernal,[place] D. Advanced Practice Provider documentation review:: The Mid-level provider documentation, treatment plan and medical decision making was reviewed by the physician who agrees with all treatment and medical decision making by the MLP. The physician spent face to face time with patient:: No Advanced Practice Provider documentation review:: Supervising physician onsite and consulted in the evaluation and care of this patient. The physician did not have a face to face encounter with the patient.
[2018-11-20 15:49] LABS: AGAP 16; ALB/GLOB RATIO 0.8; ALBUMIN 3.6 g/dL (3.5-5.0); ALKALINE PHOSPHATASE 148 U/L (32-104); BUN 6 mg/dL (8-22); CHLORIDE 85 mmol/L (98-107); COSMO 266; CREATININE 0.6 mg/dL (0.5-0.9); GLUCOSE 336 mg/dL (70-104); GOT 38 U/L (10-30); GPT 30 U/L (10-36); POTASSIUM 4.4 mmol/L (3.5-5.1); SODIUM 127 mmol/L (136-145); TCO2 26 mmol/L (25-35); TOTAL BILIRUBIN 0.25 mg/dL (0.20-1.00)
--- NOTE | 2018-11-20 15:52 | Diag Imaging Result Doc PS360 ---
EXAM: CHEST-1 VIEW HISTORY: possible sepsis/dka TECHNIQUE: Portable chest COMPARISON: 11/13/2018 FINDINGS: The lungs are well expanded. The heart is not enlarged. The vessels are not distended. There are no infiltrates. No effusion identified. Mild scoliosis. IMPRESSION: Negative exam. Electronically signed by Sekou Li 11/20/2018 3:50 PM
[2018-11-20 16:04] LABS: ACETONE SERUM NEGATIVE (NEGATIVE)
[2018-11-20] MEDS ORDERED: TYLENOL PO ONE (16:26)
--- NOTE | 2018-11-20 16:48 | EKG Report ---
Test Performed on : 11/20/2018 3:18:01 PM Test Reason : ED. No order in [place] Blood Pressure : / mmHG Vent. Rate : 127 BPM Atrial Rate : 127 BPM P-R Int : 124 ms QRS Dur : 068 ms QT Int : 280 ms P-R-T Axes : 067 085 067 degrees QTc Int : 406 ms Sinus tachycardia. Possible Left atrial enlargement Borderline ECG When compared with ECG of 11-NOV-2018 12:12, (Unconfirmed) No significant change was found Unconfirmed Result
[2018-11-20] MEDS ORDERED: ROCEPHIN 1 GM in NS 50 ML IV ONE (18:12)
--- NOTE | 2018-11-20 19:39 | Diag Imaging Result Doc PS360 ---
EXAM: CT ABD/PELVIS W/IV CONT ONLY INDICATION: abd pain TECHNIQUE: This exam was performed using automated exposure control, adjustment of mA or kV according to patient size, and/or use of iterative reconstruction technique. COMPARISON: 03/02/2018 FINDINGS: There has been a prior cholecystectomy. The liver, spleen, pancreas, and adrenal glands are essentially unremarkable. There is abnormal patchy hypoenhancement involving both kidneys in a striated nephrogram pattern. This is usually indicative of pyelonephritis. Please correlate clinically. There is no hydronephrosis. Urinary bladder is distended and is grossly unremarkable, otherwise. No urinary bladder wall thickening is appreciated. The reproductive tract is grossly unremarkable as imaged. There are multiple fluid-filled loops of small bowel with minimal distention that are nonspecific and are likely related to ileus. There is nothing to suggest bowel obstruction. The remainder of the GI tract is grossly unremarkable. Near the level of the umbilicus on the left, there is mild focal skin thickening with mild underlying subcutaneous stranding. This is also seen on the previous study but is slightly more prominent. Please correlate clinically. There is no evidence of acute osseous abnormality. IMPRESSION: 1.Abnormal patchy hypoenhancement involving both kidneys in a striated nephrogram pattern. This usually indicates pyelonephritis. Please correlate clinically. 2.Fluid-filled loops of small bowel throughout the abdomen with only mild distention, nonspecific but probably related to ileus. 3.Other incidental/nonacute findings detailed above. Electronically signed by German Aguirre 11/20/2018 7:37 PM
[2018-11-20 19:43] LABS: URINE SOURCE CLEAN CATCH
[2018-11-20 19:47] LABS: BILIRUBIN URINE NEGATIVE (NEGATIVE); BLOOD URINE TRACE (NEGATIVE); COLOR YELLOW; GLUCOSE URINE 500 mg/dL (NEGATIVE); KETONE URINE NEGATIVE (NEGATIVE); LEUKOCYTES URINE MODERATE (NEGATIVE); NITRITE URINE POSITIVE (NEGATIVE); PH URINE 6.5; PROTEIN URINE 50 mg/dL (NEGATIVE); SP GRAVITY URINE 1.034; TURBIDITY URINE CLEAR (CLEAR); UROBILINOGEN URINE NORMAL (NORMAL)
[2018-11-20 19:48] LABS: UR EPITHELIAL CELLS <10 /HPF (<10); URINE BACTERIA 2+ /HPF; URINE RBC <10 /HPF (<10); URINE WBC TNTC /HPF (<10)
[2018-11-20 19:54] LABS: URINE YEAST PRESENT
[2018-11-20 20:00] LABS: UR AMPHETAMINES QUAL NONE DETECTED (NONE DETECT); UR BARBITUATES QUAL NONE DETECTED (NONE DETECT); UR BENZODIAZEPIN QUAL NONE DETECTED (NONE DETECT); UR CANNABINOIDS QUAL NONE DETECTED (NONE DETECT); UR COCAINE QUAL NONE DETECTED (NONE DETECT); UR METHADONE QUAL NONE DETECTED (NONE DETECT); UR OPIATES QUAL NONE DETECTED (NONE DETECT); UR OXYCODONE QUAL NONE DETECTED (NONE DETECT); UR PCP QUAL NONE DETECTED (NONE DETECT)
[2018-11-20] MEDS ORDERED: ZOFRAN IV ONE (20:03)
[2018-11-20] MEDS ORDERED: MORPHINE IV ONE (20:03)
--- NOTE | 2018-11-20 21:41 | HISTORY AND PHYSICAL ---
PRIMARY CARE PHYSICIAN: Dr. Buffy Johnson. CHIEF COMPLAINT: Left flank pain. HISTORY OF PRESENTING ILLNESS: A 43-year-old female with a history of diabetes mellitus type 1 who presented to the emergency department with several-day history of having left flank pain. The patient states that she was nauseated, did not feel well. She was evaluated in the emergency department. She had imaging done which did show pyelonephritis. Due to her presenting symptoms, it was thought that she would require admission for further management. At the time of my examination she denied any headache, chest pain, shortness of breath, hemoptysis or any weight changes, but complained of having left flank pain and being nauseated. PAST MEDICAL HISTORY: Include diabetes mellitus type 1. SOCIAL HISTORY: Doskef-naer-hoql history of smoking. Denies any history of alcohol or illicit drug use. FAMILY HISTORY: Positive for coronary disease in mother. REVIEW OF SYSTEMS: Fourteen-point review of systems listed as in HPI. Other systems negative. PHYSICAL EXAMINATION: GENERAL: Cooperative, friendly female. She is resting more comfortably now. VITAL SIGNS: Temperature 99.7 degrees, pulse 91, respirations 18, blood pressure 120/77. HEENT: Atraumatic, normocephalic. Extraocular movements intact. PERRLA. NECK: Supple. CHEST: Clear to auscultation. CARDIOVASCULAR: Regular rate and rhythm. ABDOMEN: Soft. Positive bowel sounds. EXTREMITIES: No edema. BACK: There is some left flank tenderness. GENITOURINARY: No bladder distention. SKIN: Warm. LABORATORY DATA: Sodium 127, potassium 4.4, chloride 85, CO2 is 26, BUN is 6, creatinine 0.6, glucose is 355. WBC 11.65, hemoglobin 12.1, hematocrit 36.6, platelets 386,000. UA is nitrite- positive. DIAGNOSTIC DATA: Abdominal CT shows pyelonephritis. ASSESSMENT: This is a 43-year-old female with a history of diabetes mellitus type 1, who presented to the emergency department with several-day history of having left flank pain. She was evaluated in the emergency department. She had imaging done which did show suspicion for pyelonephritis. Subsequently she will require admission for further management. 1. Acute pyelonephritis. 2. Probable urinary tract infection. 3. Diabetes mellitus type 1, with hyperglycemia. 4. Hyponatremia. PLAN: 1. We will admit the patient to the medical floor. 2. We will check urine cultures, blood cultures. Start the patient on IV antibiotics. 3. We will monitor blood glucose and put the patient on sliding scale insulin regimen. 4. Continue with IV fluids. 5. Put the patient on DVT prophylaxis with SCDs. 6. We will continue to follow and reassess, and make further recommendations based on the patient's clinical course. cc: Chris Otero MD
[2018-11-20] MEDS ORDERED: ZOFRAN IV PRN (22:26)
[2018-11-20] MEDS: NS 1,000 ML IV SCH (22:43)
[2018-11-20] MEDS: HUMULIN R SUBQ SCH (22:44)
[2018-11-21] MEDS: NORCO-10 PO PRN ×4 (00:44→21:58)
[2018-11-21] MEDS: TYLENOL PO PRN ×2 (04:36→22:06)
[2018-11-21 06:19] LABS: BASO# 0.01 X1000 (0.0-0.2); BASO% 0.1 % (0.0-0.8); HEMATOCRIT 31.2 % (37.0-47.0); HEMOGLOBIN 10.1 g/dL (12.0-16.0); IMM GRAN# 0.04 X1000 (0.0-0.04); IMM GRAN% 0.3 % (0.0-0.5); LYMPH# 1.63 X1000 (1.2-3.4); LYMPH% 12.4 % (20.5-51.1); MCH 27.5 PG (27-31); MCHC 32.4 g/dL (33-37); MONO# 1.03 X1000 (0.11-0.59); MONO% 7.9 % (1.7-9.3); MPV 10.3 FL (7.4-10.4); NEUT% 79.3 % (42.2-75.2); PLT 391 X1000 (130-400); RBC 3.67 XMIL (4.2-5.4); RDW 14.2 % (11.5-14.5); WBC 13.11 X1000 (4.8-10.8)
[2018-11-21 06:36] LABS: AGAP 9; BUN 6 mg/dL (8-22); CALCIUM 8.5 mg/dL (8.8-10.2); CHLORIDE 96 mmol/L (98-107); COSMO 264; CREATININE 0.5 mg/dL (0.5-0.9); ESTIMATED GFR > 60; GLUCOSE 137 mg/dL (70-104); POTASSIUM 3.3 mmol/L (3.5-5.1); SODIUM 132 mmol/L (136-145); TCO2 27 mmol/L (25-35)
[2018-11-21] MEDS: NS 1,000 ML IV SCH ×2 (06:53→14:41)
[2018-11-21] MEDS: HUMULIN R SUBQ SCH ×4 (06:56→22:03)
[2018-11-21] MEDS ORDERED: SODIUM CHLORIDE 0.9% INJ PRN (12:44)
--- NOTE | 2018-11-21 13:50 | PROGRESS NOTE ---
DATE: 11/21/2018 SUBJECTIVE: Patient reports still complaining of left flank pain, but denies any fever or chills. Nausea has resolved, and she actually wants to eat. OBJECTIVE: Vital Signs: Temperature 97.5 degrees, heart rate 89, respiratory rate 16, blood pressure 103/60, O2 saturation 94% on room air. General Examination: This is a chronically ill- appearing 43-year-old female, lying in bed, in no acute distress. Cardiovascular: S1, S2 heard. No murmurs, gallops, or rubs. Regular rate and rhythm. Respiratory: Clear bilaterally to auscultation. No work of breathing or using accessory muscles. Abdomen: Soft, nontender to palpation. Bowel sounds present. No organomegaly. There is some left flank tenderness. Extremities: No clubbing, cyanosis, or edema. Peripheral pulses present in both legs. Neurological: Patient is alert and oriented x3. Moves 4 extremities. LABORATORY DATA: White cell count 13.11, hemoglobin 10.1, hematocrit 31.2, platelets 391,000 . Potassium 3.3, sodium 132. ASSESSMENT AND PLAN: 1. Acute pyelonephritis. Patient is on ceftriaxone. Urine cultures are negative, but considering that she has clinically this condition, I think we will continue with antibiotics for at least over the weekend, and on Saturday, we can switch to oral medication. If patient is feeling better, we will let her go. 2. Diabetes mellitus, type 2. We will continue with sliding scale insulin and Accu-Chek before meals and also at bedtime. 3. Hyponatremia. Aware. We will continue with IV hydration. DISPOSITION: We will continue to monitor this patient closely. cc: Krishan Berrios MD
[2018-11-21] MEDS: MORPHINE IV PRN ×2 (14:32→17:24)
[2018-11-21] MEDS: PHENERGAN IV PRN (14:41)
[2018-11-21] MEDS ORDERED: ROCEPHIN 1 GM in NS 50 ML IV SCH (18:00)
[2018-11-22] MEDS: MORPHINE IV PRN (00:28)
[2018-11-22] MEDS: PHENERGAN IV PRN (00:33)
[2018-11-22 06:02] LABS: BASO# 0.01 X1000 (0.0-0.2); BASO% 0.1 % (0.0-0.8); EOS# 0.03 X1000 (0.0-0.7); EOS% 0.3 % (0.0-10.0); HEMATOCRIT 30.1 % (37.0-47.0); HEMOGLOBIN 9.6 g/dL (12.0-16.0); IMM GRAN# 0.02 X1000 (0.0-0.04); IMM GRAN% 0.2 % (0.0-0.5); LYMPH# 2.03 X1000 (1.2-3.4); LYMPH% 21.1 % (20.5-51.1); MCHC 31.9 g/dL (33-37); MCV 84.6 FL (81-99); MONO# 0.84 X1000 (0.11-0.59); MONO% 8.7 % (1.7-9.3); MPV 10.6 FL (7.4-10.4); NEUT% 69.6 % (42.2-75.2); PLT 346 X1000 (130-400); RBC 3.56 XMIL (4.2-5.4); RDW 14.3 % (11.5-14.5); WBC 9.63 X1000 (4.8-10.8)
[2018-11-22 06:24] LABS: AGAP 8; BUN 7 mg/dL (8-22); CHLORIDE 98 mmol/L (98-107); COSMO 275; CREATININE 0.5 mg/dL (0.5-0.9); ESTIMATED GFR > 60; GLUCOSE 287 mg/dL (70-104); POTASSIUM 3.4 mmol/L (3.5-5.1); SODIUM 133 mmol/L (136-145); TCO2 27 mmol/L (25-35)
[2018-11-22] MEDS: HUMULIN R SUBQ SCH (07:33)
[2018-11-22 08:34] VITALS: BP 105/63
[2018-11-22] MEDS: NORCO-10 PO PRN (09:40)
--- NOTE | 2018-11-22 19:11 | DISCHARGE SUMMARY ---
ADMISSION DATE: 11/20/2018 DISCHARGE DATE: 11/22/2018 DISCHARGE DIAGNOSES: 1. Acute pyelonephritis, improved. 2. Diabetes mellitus type 2. 3. Hyponatremia. CONSULTATIONS: None. PROCEDURES: CT of abdomen and pelvis showed abnormal patchy hypoenhancement involving both kidneys that usually indicates pyelonephritis, possible ileus. Chest x-ray done on admission showed negative examination. HOSPITAL COURSE: This is a dbjcoahbuod-[id number], 43-year-old, female who presented to the emergency department complaining of left flank pain. Initially she said that she was not able to keep anything down, so she was admitted to the hospital for possible pyelonephritis that was seen in the CT of the abdomen and pelvis. The patient was started on ceftriaxone. We got a urine culture. The finding of today's result negative. Considering her symptoms and her uncontrolled diabetes mellitus, I prefer to treat it with antibiotics for 1 more week. The patient able to eat normally since yesterday. No nausea. So the patient is going to be discharged in stable condition. DISCHARGE PHYSICAL EXAMINATION: vital signs: Temperature 98.6 degrees, heart rate 96, respiratory rate 18, blood pressure 105/63, and O2 saturation 100% on room air. General: This is a [id number]-[id number], 43-year-old, female lying in bed in no acute distress. Cardiovascular: S1, S2 heard. No murmurs, gallops, or rubs. Regular rate and rhythm. Respiratory system: Clear bilaterally to auscultation. No work of breathing or using accessory muscles. Abdomen: Soft, nontender to palpation. Bowel sounds present. No organomegaly. Extremities: No clubbing, cyanosis, or edema. Peripheral pulses present in both legs. Neurological: The patient is alert and oriented x3. Moves 4 extremities. DISCHARGE DISPOSITION: Home to self-care. LIST OF MEDICATIONS: 1. We are going to prescribe the following medication: Cefdinir 300 mg 1 tablet p.o. b.i.d. 2. We are not going to make any changes to the rest of his home medications. cc: Krishan Berrios MD
== END 2018-11-22 13:14 | disposition home or self-care (01) | DRG 690 ==
LOC: SUPCPDRO → ED 14:43 → SUATTDRO 22:04 → 4N 22:04
PROVIDERS: ATTEND Internal Medicine

== ENCOUNTER 2018-12-13 13:43 | Inpatient (IN) ==
--- NOTE | 2018-12-13 14:05 | PROVIDER DOCUMENTATION ---
HPI-General Adult - General Chief Complaint: Flank Pain Stated Complaint: BACK PAIN Time Seen by Provider: 12/13/18 14:02 Source: patient Allergies/Adverse Reactions: Patient Allergies Allergy/AdvReac Type Severity Reaction Status Date / Time No Known Allergies Allergy Verified 12/13/18 14:13 Home Medications: Home Medication List Medication Instructions Recorded Confirmed Last Taken Type Insulin Detemir [Levemir] 15 unit SUBQ BID #1 insuln.pen 11/14/18 12/13/18 12/12/18 Rx Hydrocodone/APAP 10 mg/325 mg 1 ea PO Q4H PRN PRN #20 tab 11/22/18 12/13/18 0 12/12/18 Rx [[place]-10] - History of Present Illness -Gen Adult Nature of Presenting Problems: 43yo female presents with CC of back/kidney pain. The patient reports that the onset was Saturday. The symptoms are noted in her back and are different than her chronic pain and similar to her recent pylonephritis on 11/22/18. The patient reports associated symptoms of dysuria and dehydration. Location of Pain/Injury: reports: head, back Onset/Duration: reports: 4 days ago Timing: reports: still present Associated Symptoms: reports: genitourinary problems, heartburn, nausea. denies: diarrhea, rash, shortness of breath Similar Symptoms Previously?: Yes (Similar pain with previous pylonephritis) Recently seen or treated by another doctor?: Yes (Recently treated for pylonephritis) - Diabetes Related Context Context: reports: prior DKA hospitalization Review of Systems - Adult - REVIEW OF SYSTEMS - ADULT Constitutional: reports: fever Eyes: reports: no symptoms reported Ears, Nose, Mouth & Throat: reports: other (heartburn) Cardiovascular: denies: chest pain Respiratory: denies: shortness of breath Gastrointestinal: reports: abdominal pain Genitourinary: reports: dysuria Musculoskeletal: reports: back pain Integumentary: denies: rash Neurological: reports: no symptoms reported Psychiatric: reports: no symptoms reported Endocrine: reports: no symptoms reported Hematologic/Lymphatic: reports: no symptoms reported Allergic/Immunologic: reports: no symptoms reported Past History - Adult - PAST MEDICAL HISTORY-ADULT Review of Records: reports: Old Records Reviewed Major Childhood Illnesses: reports: denies history Cardiovascular: reports: hyperlipidemia Respiratory: reports: denies history Gastrointestinal: reports: GERD Obstetrical/Gynecological: reports: denies history Genitourinary: reports: kidney disease, chronic UTI's, other (ARF) Musculoskeletal: reports: denies history Neurological: reports: Seizures/Epilepsy Psychiatric: reports: anxiety, depression Endocrine/Immune: reports: Diabetes Other Conditions: reports: denies history Additional History: Frequent ER visits - PRIOR SURGERIES/PROCEDURES Surgical/Procedure History: reports: cholecystectomy, BTL, , tonsillectomy - PRIOR HOSPITALIZATIONS Prior Hospitalizations: reports: for similar symptoms - IMMUNIZATION STATUS Childhood Immunizations: See Nurse Assessment Flu Vaccine: See Nurse Assessment - FAMILY HISTORY Family History: diabetes Physical Exam-General - PHYSICAL EXAM-ADULT Initial Vital Signs Reviewed: Yes (SIRs+ elevated HR and Temp) - CONSTITUTIONAL General Appearance: alert, mild distress - EYES Eyes: negative: scleral icterus - HEAD, EARS, NOSE, MOUTH & THROAT HENMT: normocephalic/atraumatic, moist mucous membranes - NECK Neck: normal inspection - RESPIRATORY Respiratory: lungs clear. negative: crackles, wheezing - CARDIOVASCULAR Cardiovascular: no edema, tachycardia. negative: no murmur - GASTROINTESTINAL (ABDOMEN) Abdominal Exam: other (mild tenderness diffusely no guarding) - MUSCULOSKELETAL Back Exam: CVA tenderness (bilaterally) - SKIN Integumentary: normal color - NEUROLOGIC Neurologic: grossly normal - PSYCHIATRIC Psych/Mental Status: normal mood/affect, tearful Progress - PLAN OF CARE/RESULTS Progress/Plan/Lab Results: 43yo female with recent hx of pylonephritis presents with complaints of flank pain. She is noted to have tachycardia and fever DDx. pylonephritis, spinal abscess, appendicitus, diverticultilisis, pancreatitis, UTI - will order septic work up as well as lipase and CT abdomen and pelvis. Will start 1L IV fluid bolus. Result Diagrams: 12/13/18 14:59 12/13/18 14:59 - REASSESSMENT Reassessment #1 Status: unchanged (Patient still having some pain with some improvement with medication. Patient still noted to have some tachycardia. Will give another IV bolus and plan for admission. CT with reports stable pylonephritis.) Departure - Departure Date of Disposition Decision: 12/13/18 Time of Disposition Decision: 18:02 DIAGNOSIS: Pyelonephritis, Sepsis Disposition: ADMITTED INPATIENT Certified Medical Emergency: Emergent Condition: Fair Referrals and Follow-Ups: Read,Buffy, MD [Primary Care Provider] - - Critical Care Note This patient required my direct & personal management of CC.: No Attestation - Physician/ KIAN Attestation Patient care was provided by Advanced Practice Provider:: No The physician spent face to face time with patient:: Yes Advanced Practice Provider documentation review:: Supervising physician onsite and consulted in the evaluation and care of this patient. The physician did have a face to face encounter with the patient.
[2018-12-13] MEDS ORDERED: NS 1,000 ML IV ONE ×2 (14:20→17:46)
--- NOTE | 2018-12-13 14:42 | Diag Imaging Result Doc PS360 ---
CHEST-2 VIEWS - 12/13/2018 INDICATION: Sepsis and abdominal pain COMPARISON: 11/20/2018 FINDINGS: There is a skin fold at the lateral left chest. The lungs are normally expanded and clear. Heart size and mediastinal contours are normal. No pneumothorax or pleural effusion. IMPRESSION: Negative exam. Electronically signed by Blayne Estrada 12/13/2018 2:39 PM
[2018-12-13] MEDS ORDERED: DILAUDID IM ONE ×2 (15:21→15:25)
[2018-12-13] MEDS ORDERED: DILAUDID IV ONE (15:26)
[2018-12-13 15:32] LABS: URINE SOURCE CLEAN CATCH
[2018-12-13 15:41] LABS: BILIRUBIN URINE NEGATIVE (NEGATIVE); BLOOD URINE TRACE (NEGATIVE); COLOR YELLOW; GLUCOSE URINE TRACE mg/dL (NEGATIVE); KETONE URINE NEGATIVE (NEGATIVE); LEUKOCYTES URINE LARGE (NEGATIVE); NITRITE URINE NEGATIVE (NEGATIVE); PH URINE 8.5; PROTEIN URINE 200 mg/dL (NEGATIVE); SP GRAVITY URINE 1.013; TURBIDITY URINE HAZY (CLEAR); UROBILINOGEN URINE NORMAL (NORMAL)
[2018-12-13 15:44] LABS: INR 1.06; PROTIME 13.9 Seconds (11.0-16.0); PTT 29.1 Seconds (22.3-41.8)
[2018-12-13 15:47] LABS: BASO# 0.01 X1000 (0.0-0.2); BASO% 0.1 % (0.0-0.8); HEMATOCRIT 31.8 % (37.0-47.0); HEMOGLOBIN 10.7 g/dL (12.0-16.0); IMM GRAN# 0.03 X1000 (0.0-0.04); IMM GRAN% 0.2 % (0.0-0.5); LYMPH% 8.8 % (20.5-51.1); MCH 27.5 PG (27-31); MCHC 33.6 g/dL (33-37); MCV 81.7 FL (81-99); MONO# 0.76 X1000 (0.11-0.59); MONO% 5.6 % (1.7-9.3); NEUT# 11.69 X1000 (1.4-6.5); NEUT% 85.3 % (42.2-75.2); PLT 336 X1000 (130-400); RBC 3.89 XMIL (4.2-5.4); RDW 14.3 % (11.5-14.5); WBC 13.69 X1000 (4.8-10.8)
[2018-12-13 15:48] LABS: UR EPITHELIAL CELLS >10 /HPF (<10); URINE BACTERIA 4+ /HPF; URINE RBC <10 /HPF (<10); URINE WBC TNTC /HPF (<10)
[2018-12-13 15:57] LABS: URINE CASTS NONE SEEN; URINE CRYSTALS NONE SEEN; URINE SMALL ROUND CELLS TRANS PRESENT; URINE YEAST NONE SEEN
[2018-12-13 16:08] LABS: ESTIMATED GFR > 60
[2018-12-13 16:10] LABS: AGAP 15; ALB/GLOB RATIO 1.1; ALBUMIN 3.5 g/dL (3.5-5.0); ALKALINE PHOSPHATASE 146 U/L (32-104); BUN 7 mg/dL (8-22); CALCIUM 9.3 mg/dL (8.8-10.2); CHLORIDE 90 mmol/L (98-107); CK PROFILE 23 U/L (24-173); COSMO 262; CREATININE 0.5 mg/dL (0.5-0.9); GLUCOSE 95 mg/dL (70-104); GOT 21 U/L (10-30); GPT 22 U/L (10-36); LIPASE 6 U/L (13-60); MAGNESIUM 1.5 mg/dL (1.5-2.7); POTASSIUM 3.9 mmol/L (3.5-5.1); SODIUM 132 mmol/L (136-145); TCO2 27 mmol/L (25-35); TOTAL BILIRUBIN 0.26 mg/dL (0.20-1.00); TOTAL PROTEIN 6.8 g/dL (6.3-8.3)
[2018-12-13] MEDS ORDERED: TYLENOL PO ONE (17:17)
--- NOTE | 2018-12-13 17:20 | Diag Imaging Result Doc PS360 ---
CT ABD/PELVIS W/IV CONT ONLY - 12/13/2018 INDICATION: concern for abominal infection or pylonephritis COMPARISON: 11/20/2018 FINDINGS: The lung bases are clear and the heart size is normal. There is patchy hypoenhancement of the kidneys similar to the prior exam. No urinary obstruction. Stable cholecystectomy clips. Mild constipation. No bowel obstruction or inflammation. Small amount of pelvic free fluid. There is urinary bladder wall thickening indicating cystitis. Uterus and rectum are normal. IMPRESSION: Cystitis. Bilateral pyelonephritis stable from prior. Trace pelvic free fluid. This exam was performed using automated exposure control, adjustment of mA or kV according to patient size, and/or use of iterative reconstruction technique Electronically signed by Blayne Estrada 12/13/2018 5:17 PM
[2018-12-13] MEDS ORDERED: MERREM 1 GM in NS 50 ML IV ONE (17:22)
[2018-12-13] MEDS ORDERED: ZOFRAN IV PRN (17:58)
[2018-12-13] MEDS ORDERED: TYLENOL PO PRN (18:23)
[2018-12-13] MEDS: MAXIPIME 2 GM in NS 100 ML IV SCH (18:45)
[2018-12-13] MEDS: DILAUDID IV PRN (19:52)
--- NOTE | 2018-12-13 20:07 | HISTORY AND PHYSICAL ---
CHIEF COMPLAINT: Bilateral flank pain, back pain. HISTORY OF PRESENT ILLNESS: This is a 43-year-old female with a history of noncompliant diabetes mellitus type 1 who presents to the emergency room complaining of back pain that wraps around to both flanks, fever, chills, general aches and dysuria. She was admitted to the hospital from November 20 to November 22 with the same symptoms diagnosed with pyelonephritis, treated with Rocephin. Urine culture ultimately came back negative, she was discharged on Omnicef 300 mg b.i.d. which she states that she did complete. She states the pain never subsided although over the last 4 days it has gradually increased and she has developed dysuria. CT scan revealed cystitis with patchy hypo enhancement of the kidneys similar to CT 11/20/2018 with radiologist read as bilateral pyelonephritis that is stable. PAST MEDICAL HISTORY: Diabetes mellitus type 1. Noncompliance. PAST SURGICAL HISTORY: Denies. SOCIAL HISTORY: She denies alcohol or illicit drug use. She does smoke about half pack of cigarettes a day. ALLERGIES: No known drug allergies. HOME MEDICATIONS: 1. Levemir 15 units subcutaneous b.i.d. 2. [place] 10 q.4 hours p.r.n. REVIEW OF SYSTEMS: Discussed with the patient with pertinent positives stated in the HPI. She denied any syncope, dizziness, any chest pain or palpitations, any vomiting, diarrhea, constipation, black or bloody vomitus or stools, any shortness of breath, cough, PND, orthopnea, any hematuria. PHYSICAL EXAMINATION: GENERAL: This is a 43-year-old female who is sitting up on the stretcher in the emergency room in no distress. VITAL SIGNS: Blood pressure is 98/62 with a heart rate of 113, respirations are 22, temperature is 100 degrees with room air saturations 100%. HEENT: Pupils equal, round, react to light EOMs are intact sclerae anicteric. Head is normocephalic, atraumatic. Mucous membranes are dry. NECK: Supple with trachea midline. CARDIOVASCULAR: Regular rate and rhythm. S1, S2 appreciated. She has no lower extremity edema. Calves are nontender bilateral. Peripheral pulses palpable x4 extremities. PULMONARY: Breath sounds are clear. No increased work of breathing noted. Chest rises and falls symmetric respiration. GASTROINTESTINAL: Abdomen soft, nontender, nondistended with bowel sounds in all 4 quadrants. GENITOURINARY: She has bilateral CVA tenderness. NEUROLOGIC: She is alert, oriented x3. SKIN: Warm and dry. LABS: WBC is 13 with hemoglobin 10.7, hematocrit 31.8, platelets of 336,000. Sodium 132, potassium 3.9, BUN 7, creatinine 0.5 with a glucose of 95, magnesium is 1.5. Urinalysis reveals large leukocytes with greater than 10 epithelial cells and 4+ bacteria. This could be consistent with contamination. Blood cultures, urine cultures are pending. Chest x-ray reveals negative exam. ASSESSMENT AND PLAN: 1. Pyelonephritis. Blood and urine cultures have been obtained. Will start IV antibiotic therapy. 2. Sepsis secondary to pyelonephritis. Will start IV fluids and antibiotic therapy. 3. Diabetes mellitus type 1. Will start long acting insulin. 4. Deep vein thrombosis prophylaxis. Will start Lovenox Plan discussed with Dr Valenzuela. Further treatments pending hospital course. Dictated by ANGELA Norton for Nona Valenzuela MD cc: ANGELA Norton MD I performed a face to face encounter on the patient. I reviewed all labs and imaging on the patient. I agree with the H&P as dictated. [facility]
[2018-12-13] MEDS: NORCO-7.5 PO PRN (20:20)
[2018-12-13] MEDS ORDERED: HUMALOG SUBQ SCH (21:00)
[2018-12-13] MEDS: NS 1,000 ML IV SCH (21:17)
[2018-12-13] MEDS: LOVENOX SUBQ SCH (21:29)
[2018-12-13] MEDS: HUMULIN R SUBQ SCH (21:29)
[2018-12-13] MEDS: CARAFATE PO SCH (21:29)
[2018-12-14] MEDS: DILAUDID IV PRN ×4 (00:30→20:20)
[2018-12-14] MEDS: NS 1,000 ML IV SCH ×4 (04:34→23:46)
[2018-12-14] MEDS: CARAFATE PO SCH ×4 (06:29→20:19)
[2018-12-14] MEDS: PRILOSEC PO SCH (06:30)
[2018-12-14] MEDS: MAXIPIME 2 GM in NS 100 ML IV SCH ×2 (06:30→17:57)
[2018-12-14] MEDS: HUMULIN R SUBQ SCH ×4 (06:30→16:37)
[2018-12-14 06:59] LABS: BASO# 0.01 X1000 (0.0-0.2); BASO% 0.1 % (0.0-0.8); EOS# 0.01 X1000 (0.0-0.7); EOS% 0.1 % (0.0-10.0); HEMATOCRIT 26.4 % (37.0-47.0); HEMOGLOBIN 8.6 g/dL (12.0-16.0); IMM GRAN# 0.04 X1000 (0.0-0.04); IMM GRAN% 0.4 % (0.0-0.5); LYMPH# 0.64 X1000 (1.2-3.4); LYMPH% 6.8 % (20.5-51.1); MCH 27.3 PG (27-31); MCHC 32.6 g/dL (33-37); MCV 83.8 FL (81-99); MONO% 5.3 % (1.7-9.3); MPV 10.2 FL (7.4-10.4); NEUT# 8.18 X1000 (1.4-6.5); NEUT% 87.3 % (42.2-75.2); PLT 257 X1000 (130-400); RBC 3.15 XMIL (4.2-5.4); RDW 14.4 % (11.5-14.5); WBC 9.38 X1000 (4.8-10.8)
[2018-12-14 07:32] LABS: BANDS 2 % (0-1); LYMPHS 6 % (21-51); SEGS 92 % (42-75)
[2018-12-14] MEDS ORDERED: INSULIN PEN NEEDLES ONE (07:37)
[2018-12-14 07:44] LABS: AGAP 13; ALB/GLOB RATIO 0.7; ALBUMIN 2.6 g/dL (3.5-5.0); ALKALINE PHOSPHATASE 127 U/L (32-104); BUN 9 mg/dL (8-22); CHLORIDE 95 mmol/L (98-107); COSMO 278; CREATININE 0.7 mg/dL (0.5-0.9); ESTIMATED GFR > 60; GOT 23 U/L (10-30); GPT 20 U/L (10-36); MAGNESIUM 1.3 mg/dL (1.5-2.7); POTASSIUM 3.8 mmol/L (3.5-5.1); SODIUM 130 mmol/L (136-145); TCO2 22 mmol/L (25-35); TOTAL BILIRUBIN 0.27 mg/dL (0.20-1.00); TOTAL PROTEIN 6.3 g/dL (6.3-8.3)
[2018-12-14] MEDS ORDERED: HUMULIN R SUBQ SCH (07:49)
[2018-12-14] MEDS ORDERED: MAGNESIUM SULFATE 2 GM/S.W.I. 2 GM/50 ML IVPB IV ONE (07:49)
[2018-12-14 08:08] LABS: GLUCOSE 433 mg/dL (70-104)
[2018-12-14] MEDS ORDERED: NS 250 ML IV ONE (08:42)
[2018-12-14] MEDS ORDERED: LEVOPHED 8 MG in D5 1/2 NS 250 ML IV SCH (08:45)
[2018-12-14] MEDS: LEVEMIR SUBQ SCH ×2 (08:52→20:19)
[2018-12-14] MEDS: NORCO-7.5 PO PRN ×3 (08:54→19:49)
--- NOTE | 2018-12-14 09:34 | INFECTIOUS DISEASE CONSULT REP ---
DATE: 12/14/2018 CONCLUSION: The patient is admitted to the hospital with what appears to be pyelonephritis and cystitis. She has been in the hospital multiple times with a similar diagnosis. It is interesting to note that in looking at the patient's microbiology history, she has never had a positive blood culture. Of her urine cultures, one was for yeast. One said that it was a contaminant and another urine culture said no pathogenic growth. I do believe that she really does have pyelonephritis and cystitis as seen on the CAT scan. Probably, a good reason why the patient comes in with recurrent urinary tract infections is that she does not appear to have good control of her diabetes. She told me she had been in multiple times with diabetic ketoacidosis. Also, the patient is treated with IV antibiotics but it is only for about 4 or 5 days and it may be that she will require a longer period of IV antibiotics. Finally, the patient could have an immunoglobulin deficiency but usually that is rarely the cause of recurrent urinary tract infections. Usually in people with an immunoglobulin deficiency, they have recurrent respiratory tract infections such as pneumonia, bronchitis, pharyngitis, or sinusitis. The patient also has very poor oral hygiene. She has some necrotic teeth and others that have caries. RECOMMENDATIONS: The patient's temperature and white cell count are coming down on cefepime that Dr. Valenzuela started and I agree with continuing with it. Hopefully, this time, we will be able to get positive cultures but even if we do not, I think the patient will require a prolonged treatment with IV antibiotics, anywhere in the range from 2 to 6 weeks of IV antibiotic for her urinary tract infection and bacteremia. I think it would be reasonable to have the patient see an oral surgeon and most likely, I think she would need all of her teeth removed and this may help to give her better control of her diabetes. DISCUSSION: The patient tells me that when she came in, she was having severe flank pain and also she was having pain in her upper abdomen which, when I palpated it, the pain radiated to both costovertebral angle areas. The patient's studies thus far, the CAT scan of the abdomen showed findings of pyelonephritis and cystitis. The chest x-ray was clear. The patient's blood cultures are growing gram-negative rods and the urine culture is not yet back. The patient's CBC when she came in, it was 13,690 and yesterday, it was down to 9380, hemoglobin 8.6, and platelet count of 257,000. The patient's creatinine is 0.7. GFR is greater than 60. Her glucose yesterday was 433. Liver function studies are normal except for an alkaline phosphatase that initially was 146 and yesterday it was 127. Urinalysis showed that the patient has bacteria and white blood cells present. PAST MEDICAL HISTORY/REVIEW OF SYSTEMS: Eyes and Ears: She can hear and see okay. Neck: No stiffness. Respiratory: No cough or shortness of breath. GI: No nausea, vomiting, or diarrhea. : See present illness. Bones, Joints, and Muscles: No swollen joints or muscle aches. Neurologic: No seizures. No loss of motor or sensory function. Integument: No rashes. [employer] HISTORY: The patient is a 3, para 3, AB 0. PREVIOUS HOSPITALIZATIONS AND OPERATIONS: The patient has had 3 labor and deliveries, a cholecystectomy, and she told me multiple admissions for diabetic ketoacidosis. The patient has also had a tonsillectomy. MEDICAL DISEASES: Positive for diabetes mellitus. INFECTIOUS DISEASE HISTORY: Positive for sepsis, urinary tract infection, bacteremia, and very poor teeth (some appear necrotic and others have caries in them). FAMILY HISTORY: Positive for diabetes mellitus, hypertension, myocardial infarction, COPD, and cancer. SOCIAL HISTORY: [place] She is . She has a cat as a pet. She smokes cigarettes. She does not drink alcoholic beverages or abuse drugs. She is disabled from her diabetes. ALLERGIES: She has no known drug allergies. MEDICATIONS: Taken at home include hydrocodone and insulin. PHYSICAL EXAMINATION: Vital Signs: Temperature is 98 degrees, pulse 94, respirations 12, blood pressure 76/56. Patient is 5 feet 5 inches tall. She weighs 99 pounds. General: This is a chronically ill-appearing and malnourished-appearing, middle-aged female. She is in no acute distress. Head, Eyes, Ears, Nose, and Throat: She can hear my spoken words and see near objects. As mentioned above, she has very poor oral hygiene. She is missing teeth. She has some necrotic teeth and she has caries in others. Neck: No meningismus. Lungs: Clear to auscultation. Cardiovascular: Heart rate is regular. Abdomen: Soft. There was some tenderness in the upper part of the abdomen. She said that the palpation caused her to have pain in both CVA areas. Back: She has bilateral CVA tenderness. Neurologic: The patient is awake. She can move her extremities. There is no tremor. Her sensation is intact to touch. The patient's memory of her medical diseases is intact. Integument: No rash. Thank you for the consult. cc: Jer Escobar MD
[2018-12-14] MEDS: PHENERGAN IV PRN ×2 (13:04→20:20)
[2018-12-14] MEDS: LOVENOX SUBQ SCH (17:57)
--- NOTE | 2018-12-14 20:31 | PROGRESS NOTE ---
DATE: 12/15/2015 SUBJECTIVE: The patient is sitting up. She states that she feels a little bit better, but complains of bilateral flank pain. Also, she was noted to be hypotensive with a systolic blood pressure in the 80s this morning. OBJECTIVE: Vital Signs: Temperature 99.4 degrees, blood pressure 101/67, heart rate 103, respirations 14, O2 saturations 96% on room air. Intake 1.9, output 1.4 L. General: This is a chronically ill-appearing female sitting up in bed in no acute distress. Heart: S1, S2 normal. Tachycardic. Lungs: Clear to auscultation bilaterally. Abdomen: Positive bowel sounds. Soft, nontender, nondistended. Extremities: No edema. No cyanosis. Neurologic: The patient is alert and oriented x4. LABORATORY DATA: Hemoglobin 8.6, hematocrit 26, platelets 257,000. Sodium 130, potassium 3.8, chloride 95, CO2 of 22, BUN 9, creatinine 0.7, glucose 433, magnesium 1.3. ASSESSMENT AND PLAN: 1. Sepsis secondary to bilateral pyelonephritis. We will await the final culture results. Continue with cefepime. Dr. Escobar is following. 2. Bacteremia. Initial blood cultures are growing gram-negative rods. Continue with antibiotic therapy. 3. Poorly controlled insulin-dependent diabetes mellitus. Continue with Levemir and sliding scale insulin. 4. Anemia. Stable. 5. Hypomagnesemia. Will replace the magnesium. 6. Deep vein thrombosis prophylaxis. Continue on Lovenox. cc: Nona Valenzuela MD
[2018-12-15] MEDS: DILAUDID IV PRN ×5 (00:18→18:01)
[2018-12-15] MEDS: NS 1,000 ML IV SCH ×2 (00:19→10:18)
[2018-12-15] MEDS: BENADRYL IV PRN ×2 (00:35→06:21)
[2018-12-15] MEDS: NORCO-7.5 PO PRN ×3 (02:19→20:51)
[2018-12-15] MEDS: PHENERGAN IV PRN ×4 (02:19→20:51)
[2018-12-15 04:38] LABS: HEMATOCRIT 27.5 % (37.0-47.0); HEMOGLOBIN 8.8 g/dL (12.0-16.0); MCH 26.7 PG (27-31); MCV 83.6 FL (81-99); MPV 10.3 FL (7.4-10.4); RBC 3.29 XMIL (4.2-5.4); RDW 14.7 % (11.5-14.5); WBC 7.7 X1000 (4.8-10.8)
[2018-12-15 05:03] LABS: AGAP 12; BUN 9 mg/dL (8-22); CHLORIDE 98 mmol/L (98-107); COSMO 268; CREATININE 0.5 mg/dL (0.5-0.9); ESTIMATED GFR > 60; GLUCOSE 83 mg/dL (70-104); POTASSIUM 3.4 mmol/L (3.5-5.1); SODIUM 135 mmol/L (136-145); TCO2 25 mmol/L (25-35)
[2018-12-15 05:04] LABS: CALCIUM 8.6 mg/dL (8.8-10.2)
[2018-12-15] MEDS: MAXIPIME 2 GM in NS 100 ML IV SCH (06:17)
[2018-12-15] MEDS: CARAFATE PO SCH ×4 (06:17→20:52)
[2018-12-15] MEDS: PRILOSEC PO SCH (06:17)
[2018-12-15] MEDS ORDERED: KLOR-CON PO ONE (06:29)
[2018-12-15] MEDS: HUMULIN R SUBQ SCH ×3 (07:03→17:47)
[2018-12-15] MEDS ORDERED: POTASSIUM CHLORIDE 20% LIQUID PO ONE (07:14)
[2018-12-15 07:42] LABS: MAGNESIUM 1.9 mg/dL (1.5-2.7); PHOSPHORUS 2.1 mg/dL (2.7-4.5)
[2018-12-15] MEDS: LEVEMIR SUBQ SCH ×2 (08:14→20:52)
[2018-12-15] MEDS: SODIUM CHLORIDE 0.9% INJ PRN ×2 (08:15→13:38)
[2018-12-15] MEDS: LEVAQUIN 500 MG in NS 100 ML IV SCH (09:31)
--- NOTE | 2018-12-15 09:39 | PROGRESS NOTE ---
DATE: 12/15/2018 SUBJECTIVE: The patient is resting comfortably. She states that she slept well last night. No acute events noted overnight. OBJECTIVE: Vital Signs: Temperature 98 degrees, blood pressure 95/73, heart rate 109, respirations 12, O2 saturation is 96% on room air. General: This is a chronically ill-appearing, middle-aged female sitting up in bed, in no acute distress. Heart: S1, S2 normal. Tachycardic. Lungs: Clear to auscultation bilaterally. No wheezing. No rales. Abdomen: Positive bowel sounds. Soft, nontender, nondistended. Extremities: No edema, no cyanosis, no calf tenderness. Neurologic: The patient is alert and oriented x4. Labs: Sodium 135, potassium 3.4, chloride 98, CO2 of 25, BUN 9, creatinine 0.5, glucose 83, phosphorus 2.1. Hemoglobin 8.8, hematocrit 27, platelets 247,000. ASSESSMENT AND PLAN: 1. Sepsis secondary to bilateral pyelonephritis. The urine culture grew out pansensitive Escherichia coli. We will continue on the current antibiotic regimen. Dr. Escobar is following. 2. Bacteremia secondary to E.coli. Continue on antibiotic therapy. 3. Insulin dependent diabetes mellitus. Continue on Levemir and sliding scale insulin. 4. Gastrointestinal prophylaxis. Continue on Prilosec. 5. Deep vein thrombosis prophylaxis. Continue on Lovenox. 6. Disposition. The patient is stable for transfer to the medical floor. cc: Nona Valenzuela MD MTDD
--- NOTE | 2018-12-15 15:03 | INFECTIOUS DISEASE PROGRESS NO ---
DATE: 12/15/2018 PRESENT ILLNESS: The patient has an E coli urinary tract infection with a gram-negative tiffanie bacteremia which almost certainly will also be identified as E coli. MEDICATIONS: The patient is on cefepime. PHYSICAL EXAMINATION: Vital Signs: Temperature is 98 degrees pulse 108, respirations 20, blood pressure 104/75. General: This is a chronically ill-appearing middle-aged female. She is in no acute distress. Head, eyes, ears, nose, and throat: She can hear my spoken words and see near objects. I do not see any white coating on her tongue. Neck: No pain with movement. Lungs: Clear to auscultation. Cardiovascular: Heart rate is regular. Abdomen/Flanks: Soft. There is mild bilateral CVA tenderness. Neurologic: The patient is alert. She can move her extremities. There is no tremor. She talks in a coherent fashion. LAB AND X-RAY: The patient's urine is growing E coli the blood is growing a gram-negative tiffanie. The patient's immunoglobulin levels are normal. IgA was 349. An IgG was 1042. Creatinine is 0.5. GFR is greater than 60. The patient's CBC shows a white count of 7700, hemoglobin 8.8, and platelet count 247,000. ASSESSMENT AND PLAN: Patient has an E coli urinary tract infection with an associated bacteremia. I am going to switch the patient from cefepime to Levaquin intravenously. I am giving Levaquin intravenously because the patient still is complaining of nausea. Some of the side effects of the antibiotic, including rash, diarrhea, seizures, and tendon rupture have been explained to the patient who agrees with treatment. I am going to treat the patient with Levaquin for at least 2 weeks. Today. I am going to draw repeat blood cultures and a repeat urine culture. COMORBIDITIES: She is a diabetic and unfortunately she does not have good control of it. She does smoke cigarettes. I do not think this has much to do with her urinary tract infection, but I told her I think it would be best to stop it for many other reasons, such as preventing chronic obstructive pulmonary disease, or preventing cancer. cc: Jer Escobar MD
[2018-12-15] MEDS: LOVENOX SUBQ SCH (17:51)
[2018-12-16] MEDS: NS 1,000 ML IV SCH ×3 (00:04→20:36)
[2018-12-16] MEDS: DILAUDID IV PRN ×4 (00:11→20:40)
[2018-12-16] MEDS: NORCO-7.5 PO PRN ×4 (03:53→23:23)
[2018-12-16] MEDS: PHENERGAN IV PRN ×4 (03:53→23:22)
[2018-12-16] MEDS: CARAFATE PO SCH ×4 (06:05→20:39)
[2018-12-16] MEDS: PRILOSEC PO SCH (06:06)
[2018-12-16] MEDS: HUMULIN R SUBQ SCH ×4 (06:20→23:22)
[2018-12-16] MEDS ORDERED: INSULIN PEN NEEDLES ONE (07:08)
[2018-12-16 07:30] LABS: HEMATOCRIT 23.6 % (37.0-47.0); HEMOGLOBIN 7.4 g/dL (12.0-16.0); MCH 26.9 PG (27-31); MCHC 31.4 g/dL (33-37); MCV 85.8 FL (81-99); MPV 10.4 FL (7.4-10.4); RBC 2.75 XMIL (4.2-5.4); RDW 15.1 % (11.5-14.5); WBC 6.32 X1000 (4.8-10.8)
[2018-12-16 07:49] LABS: AGAP 11; BUN 10 mg/dL (8-22); CALCIUM 8.1 mg/dL (8.8-10.2); CHLORIDE 99 mmol/L (98-107); COSMO 282; CREATININE 0.4 mg/dL (0.5-0.9); ESTIMATED GFR > 60; POTASSIUM 3.2 mmol/L (3.5-5.1); SODIUM 133 mmol/L (136-145); TCO2 23 mmol/L (25-35)
[2018-12-16 08:14] LABS: GLUCOSE 402 mg/dL (70-104)
[2018-12-16] MEDS: LEVAQUIN 500 MG in NS 100 ML IV SCH (08:58)
[2018-12-16] MEDS: LEVEMIR SUBQ SCH ×2 (08:58→20:38)
[2018-12-16] MEDS: LOVENOX SUBQ SCH ×2 (16:15→20:40)
--- NOTE | 2018-12-16 19:12 | PROGRESS NOTE ---
DATE: 12/16/2018 SUBJECTIVE: This patient came in with bilateral flank pain and back pain. Followed by Dr. Buffy Vogt. PAST MEDICAL HISTORY: Diabetes mellitus type 2. Noncompliance. She had leukocytosis and pyelonephritis. Sepsis and of course underlying diabetes mellitus type 1. She has also had quite a bit of anxiety. She reported she lost her son in the last year. She states she is doing better, but she is still pretty weak and pretty anxious. OBJECTIVE: Temperature 98.4 degrees, pulse 92, respirations 18, blood pressure 107/70.HEENT: Pupils are equal and round. Lungs: Clear in all lung bello. Cardiovascular: Regular rhythm and rate without murmur or S3. Abdomen: Soft. Skin: Warm and dry. LABORATORY DATA: Blood sugars 76, 322, 310. ASSESSMENT/PLAN: 1. Sepsis secondary to bilateral pyelonephritis. She grew out pansensitive Escherichia coli. So, continue present antibiotic regimen. Dr. Escobar is following. 2. Bacteremia secondary to Escherichia coli. 3. Insulin-dependent diabetes type 1. She is on Levemir and sliding scale. That is doing better. 4. Gastrointestinal prophylaxis on Prilosec. 5. Deep venous thrombosis on Lovenox. DISPOSITION: I am not sure where she is going to go home or if she has a home right now. So, she is getting Dilaudid for pain at this point. She is requesting something for anxiety. She has said she has taken Xanax before and I do not know if she can afford BuSpar, but I will her try that and see if it helps. cc: Manuel Olivo MD
--- NOTE | 2018-12-16 20:29 | INFECTIOUS DISEASE PROGRESS NO ---
DATE: 12/16/2018 PRESENT ILLNESS: The patient has an E coli urinary tract infection and bacteremia. MEDICATIONS: The patient was switched from cefepime to Levaquin yesterday. PHYSICAL EXAMINATION: Vital Signs: Temperature is 98.4 degrees, pulse 92, respirations 18, blood pressure 107/70. General: This is a chronically ill-appearing middle-aged female. She is in no acute distress. Head, Eyes, Ears, Nose, and Throat: She can hear my spoken words and see near objects. She does not have any white patches in her mouth. Neck: No pain with movement. Lungs: Clear to auscultation. Cardiovascular: Heart rate is regular. Abdomen: Abdomen and flanks soft and no tenderness today. Neurologic: The patient is, at times, lethargic, but she did get up today, sit in a chair, and she also walked. LAB AND X-RAY: CBC shows a white count of 6320, hemoglobin 7.4, platelet count 234,000. Creatinine is 0.4. GFR is greater than 60. Immunoglobulin levels are normal. ASSESSMENT AND PLAN: Patient has Escherichia coli urinary tract infection with an associated bacteremia. I am going to continue with cefepime. When she stops being nauseated, I will make Levaquin p.o. instead of intravenous. I am going to treat the patient for at least 2 weeks with Levaquin. Tomorrow, I am going to repeat the patient's blood cultures and urine culture. COMORBIDITIES: The patient is a diabetic. She does smoke cigarettes. cc: Jer Escobar MD
[2018-12-16] MEDS: BUSPAR PO SCH (20:39)
[2018-12-16] MEDS: SODIUM CHLORIDE 0.9% INJ PRN (23:23)
[2018-12-17] MEDS: DILAUDID IV PRN ×6 (00:48→20:34)
[2018-12-17] MEDS: NS 1,000 ML IV SCH ×2 (04:27→16:26)
[2018-12-17] MEDS: NORCO-7.5 PO PRN ×3 (05:56→23:44)
[2018-12-17] MEDS: PHENERGAN IV PRN ×4 (05:56→23:45)
[2018-12-17] MEDS: SODIUM CHLORIDE 0.9% INJ PRN ×2 (05:57→23:45)
[2018-12-17] MEDS: PRILOSEC PO SCH (06:01)
[2018-12-17] MEDS: CARAFATE PO SCH ×4 (06:01→21:26)
[2018-12-17] MEDS: HUMULIN R SUBQ SCH ×4 (06:11→21:26)
[2018-12-17 07:20] LABS: AGAP 9; BUN 9 mg/dL (8-22); CALCIUM 8.2 mg/dL (8.8-10.2); CHLORIDE 97 mmol/L (98-107); COSMO 268; CREATININE 0.4 mg/dL (0.5-0.9); ESTIMATED GFR > 60; GLUCOSE 222 mg/dL (70-104); POTASSIUM 3.5 mmol/L (3.5-5.1); SODIUM 131 mmol/L (136-145); TCO2 25 mmol/L (25-35)
[2018-12-17 07:21] LABS: HEMOGLOBIN 8.6 g/dL (12.0-16.0); MCH 26.7 PG (27-31); MCHC 31.9 g/dL (33-37); MCV 83.9 FL (81-99); MPV 10.4 FL (7.4-10.4); RBC 3.22 XMIL (4.2-5.4); RDW 15.3 % (11.5-14.5); WBC 7.29 X1000 (4.8-10.8)
[2018-12-17] MEDS: LEVAQUIN 500 MG in NS 100 ML IV SCH (08:57)
[2018-12-17] MEDS: BUSPAR PO SCH ×2 (08:57→21:26)
[2018-12-17] MEDS: LEVEMIR SUBQ SCH ×2 (08:57→21:27)
--- NOTE | 2018-12-17 15:11 | INFECTIOUS DISEASE PROGRESS NO ---
DATE: 12/17/2018 PRESENT ILLNESS: Ms. Mallory has an Escherichia coli urinary tract infection with an associated bacteremia. There is also cystitis and bilateral pyelonephritis as seen on the CT. MEDICATIONS: She is receiving Levaquin 500 mg IV every 24 hours. Day 1 of treatment will be the first day of sterile blood cultures, which we have yet to obtain. PHYSICAL EXAMINATION: Vital Signs: Temperature is 98.3, pulse rate 106, respiratory rate 16, blood pressure 104/68, O2 saturation is 100% on room air. General: This is a chronically ill- appearing, middle-aged female. She is sitting up in the bed, currently in mild distress due to pain in the area of her kidneys. HEENT: Atraumatic, normocephalic. Oral mucous membranes are pink and moist. Conjunctivae are pale. Neck: Supple. Trachea is midline. Cardiovascular: Heart rate and rhythm are regular and fast. Sinus tachycardia on the monitor. Respiratory: Lung sounds are clear to auscultation bilaterally. No work of breathing is noted. Abdomen: Soft, flat, and nontender. Bowel sounds are active. She has CVA tenderness bilaterally. Neurologic: She is awake, alert, and oriented. Able to move around in the bed independently. LABORATORY AND X-RAY: Today, her white count is 7.29, hemoglobin 8.6, platelet count 341,000. Creatinine is 0.4. Estimated GFR is greater than 60. Previously, her urine culture and her blood cultures grew an Escherichia coli. Repeat urine and blood cultures are pending at this point. No imaging reports today. ASSESSMENT AND PLAN: Ms. Mallory has been treated for an Escherichia coli urinary tract infection with an associated bacteremia, cystitis and and pyelonephritis. She is receiving intravenous Levaquin and continues to require intravenous medications for her nausea. We will continue Levaquin intravenous at this point, and when her nausea improves, we will change that to oral route. She will need a minimum of 2 weeks of treatment from the first day of sterile blood cultures, for her bacteremia. More may be required in order to clear the pyelonephritis. These plans have been discussed with and recommended by Dr. Escobar. COMORBIDITIES: For Ms. Mallory include diabetes mellitus type 1 and cigarette smoking. Dictated by ANGELA Long for Jer Escobar MD cc: Jer Escobar MD [facility]
[2018-12-17] MEDS: LOVENOX SUBQ SCH (17:21)
--- NOTE | 2018-12-17 17:22 | PROGRESS NOTE ---
DATE: 12/17/2018 SUBJECTIVE: Ms. Mallory is feeling better. Breathing is better. She is still taking Dilaudid IV at 0.5 mg IV q.4 hours p.r.n. I told her I am going to have to shut that off tomorrow, I think in anticipation of being discharged tomorrow. I also explained that I will only be able to give her about 20 of the hydrocodone, that she will need to find a primary care physician that will manage that. ASSESSMENT: 1. Pneumonia, improved. She is on Levaquin IV. 2. General anxiety. 3. She had a urinary tract infection associated with bacteremia was the main reason she was here. PLAN: So, she will require Levaquin 500 mg IV every 24 hours. This is the 1st day of treatment, sterile cultures. Discussed with Dr. Escobar. We will continue IV Levaquin at this point, but hopefully can change to p.o. route and she can go home pretty soon. cc: Manuel Olivo MD
[2018-12-17] MEDS: BENADRYL IV PRN (20:33)
[2018-12-18] MEDS: NS 1,000 ML IV SCH ×3 (00:07→13:29)
[2018-12-18] MEDS: DILAUDID IV PRN ×4 (02:54→16:57)
[2018-12-18] MEDS: BENADRYL IV PRN ×3 (02:58→16:57)
[2018-12-18] MEDS: PRILOSEC PO SCH (07:02)
[2018-12-18] MEDS: CARAFATE PO SCH ×3 (07:02→16:54)
[2018-12-18] MEDS: HUMULIN R SUBQ SCH ×3 (07:02→16:53)
[2018-12-18] MEDS: NORCO-7.5 PO PRN ×2 (07:03→15:16)
[2018-12-18] MEDS: LEVEMIR SUBQ SCH (08:00)
[2018-12-18] MEDS: BUSPAR PO SCH (08:00)
[2018-12-18] MEDS: LEVAQUIN 500 MG in NS 100 ML IV SCH (09:18)
[2018-12-18] MEDS: PHENERGAN IV PRN ×2 (09:22→15:16)
--- NOTE | 2018-12-18 14:29 | DISCHARGE SUMMARY ---
ADMISSION DATE: 12/13/2018 DISCHARGE DATE: 12/18/2018 Her doctor is Buffy Johnson by report. This is a 43-year-old who came in with bilateral flank pain, back pain, history of noncompliant care, diabetes mellitus type 1 presented to the emergency room with back pain that wraps around both flanks, fever, chills, general aches, and dysuria. She is admitted in November from the to November 22 with same symptoms, diagnosed with pyelonephritis, treated with Rocephin. Urine culture ultimately came back negative. Discharged on Omnicef 300 mg b.i.d. Apparently pain never subsided and gradually increased. Presented to the hospital and was admitted, leukocytosis, pyelonephritis, sepsis, underlying diabetes mellitus type wound, deep venous thrombosis prophylaxis was initiated. She was put on antibiotics. Infectious Disease involved Dr. Natalya Escobar and she had been in the hospital multiple times, similar diagnosis. Patient's microbiology history, she has never had a positive blood culture. Of her urine cultures, one was for yeast, said that was a contaminant. Another urine culture said no pathogenic growth and felt that she really did have pyelonephritis and cystitis as seen on CAT scan. She does not have good control of her diabetes and this puts her at risk for infection. She was put on IV antibiotics and she showed steady improvement, found grew out Escherichia coli associated with bacteremia, bilateral pyelonephritis so day 1 of treatment was I believe on 12/13/2018, first day of sterile blood cultures. Her Escherichia coli appeared to be sensitive to Levaquin, so I switched her to Levaquin p.o. I will keep her on 2 weeks of Levaquin. Encouraged to follow up with her primary care physician. We will discharge her home. I encouraged her to drink plenty of liquids. Her home medication, she was on Levemir 15 units twice a day and we will continue that. I will give her 20 hydrocodone. I put her on BuSpar because of her anxiety 7.5 mg b.i.d. and I will give her some [place] 7.5 mg, give her 20 of them to take 1 q. 6 hours p.r.n. pain. She is to continue her Levemir 15 mg twice a day and make sure she gets follow up with her primary care physician. I will give her Carafate tablets 1 g p.o. before meals and at bedtime to take for another 4 weeks and she is requesting to go home. cc: Manuel Olivo MD
[2018-12-18 15:32] VITALS: BP 110/68
[2018-12-18] MEDS: LOVENOX SUBQ SCH (18:18)
== END 2018-12-18 18:36 | disposition home or self-care (01) | DRG 872 ==
LOC: SUPCPDRO → ED 13:43 → 1N 19:48 → SUATTDRO 19:48 → 1N 20:32 → ICU 12-14 12:27 → 3N 12-15 11:40
PROVIDERS: ATTEND Emergency Medicine

== ENCOUNTER 2019-01-22 13:52 | Inpatient (IN) ==
[2019-01-22] MEDS ORDERED: NS 1,000 ML IV ONE (14:42)
[2019-01-22] MEDS ORDERED: SODIUM PHOSPHATE 30 MMOL in D5W 250 ML IV PRN ×2 (14:42→18:21)
[2019-01-22] MEDS ORDERED: POTASSIUM CHLORIDE 20 MEQ/SWI 20 MEQ/100 ML IVPB IV PRN (14:42)
[2019-01-22] MEDS ORDERED: POTASSIUM CHLORIDE 20% LIQUID PO PRN ×2 (14:42→18:21)
[2019-01-22] MEDS ORDERED: POTASSIUM CHLORIDE 10% LIQUID PO PRN ×2 (14:42→18:21)
[2019-01-22] MEDS ORDERED: POTASSIUM CHLORIDE 40 MEQ/SWI 40 MEQ/100 ML IVPB IV PRN (14:42)
[2019-01-22] MEDS ORDERED: D50W SYRINGE IV PRN ×3 (14:42→18:06)
[2019-01-22] MEDS ORDERED: HUMULIN R IV ONE ×2 (14:42→14:43)
[2019-01-22] MEDS ORDERED: SODIUM BICARBONATE 8.4% 100 MEQ in STERILE WATER INJ. 500 ML IV PRN ×2 (14:42→18:21)
[2019-01-22] MEDS ORDERED: MAGNESIUM SULFATE 2 GM/S.W.I. 2 GM/50 ML IVPB IV PRN ×2 (14:42→18:21)
[2019-01-22] MEDS ORDERED: PEPCID IV ONE (14:43)
[2019-01-22] MEDS ORDERED: SODIUM CHLORIDE 0.9% INJ ONE (14:43)
[2019-01-22] MEDS ORDERED: ZOFRAN IV ONE (14:43)
[2019-01-22] MEDS ORDERED: MORPHINE IV ONE (14:43)
[2019-01-22] MEDS ORDERED: HUMULIN R 100 UNIT in NS 100 ML IV SCH (14:45)
--- NOTE | 2019-01-22 14:46 | EKG Report ---
Test Performed on : 01/22/2019 2:02:34 PM Test Reason : dka Blood Pressure : / mmHG Vent. Rate : 116 BPM Atrial Rate : 116 BPM P-R Int : 134 ms QRS Dur : 078 ms QT Int : 324 ms P-R-T Axes : 061 071 022 degrees QTc Int : 450 ms Sinus tachycardia. Nonspecific ST abnormality Abnormal ECG When compared with ECG of 20-NOV-2018 15:18, (Unconfirmed) Nonspecific T wave abnormality now evident in Inferior leads Unconfirmed Result
[2019-01-22 15:06] LABS: HEMATOCRIT 37.5 % (37.0-47.0); HEMOGLOBIN 10.8 g/dL (12.0-16.0); MCH 24.8 PG (27-31); MCHC 28.8 g/dL (33-37); MPV 10.4 FL (7.4-10.4); RBC 4.36 XMIL (4.2-5.4); RDW 17.3 % (11.5-14.5)
[2019-01-22 15:10] LABS: ALLEN TEST YES; BE -25.1 mmoll (-3.0-3.0); BLOOD TYPE ARTERIAL; HCO3-(ACT) 5.3 mmoll (20.0-26.0); METHB 0.8 % (0.0-1.5); O2(CT) 14.3 mL/dL (15.0-23.0); O2HB 95.3 % (95.0-99.0); PO2(98.6) 109 mmHg (60-100); SAMPLE BLOOD; SAO2 96.6 % (95.0-100.0); THB 10.5 g/dL (11.5-17.4)
--- NOTE | 2019-01-22 15:11 | Diag Imaging Result Doc PS360 ---
EXAM: CHEST-PORTABLE INDICATION: ams TECHNIQUE: One view COMPARISON: 12/13/2018 FINDINGS: The lungs are grossly clear. There is no discrete pleural fluid collection or pneumothorax. The cardiomediastinal silhouette and central vasculature are grossly unremarkable. IMPRESSION: No evidence of acute pathology by plain radiograph. Electronically signed by German Aguirre 01/22/2019 3:09 PM
[2019-01-22 15:13] LABS: MODALITY ROOM AIR; PCO2(98.6) 13 mmHg (35-45); pH(98.6) 7.04 (7.35-7.45)
[2019-01-22 15:22] LABS: ACETONE SERUM LARGE (NEGATIVE)
[2019-01-22 15:28] LABS: URINE SOURCE CATH
[2019-01-22 15:33] LABS: BILIRUBIN URINE NEGATIVE (NEGATIVE); BLOOD URINE NEGATIVE (NEGATIVE); COLOR STRAW; GLUCOSE URINE >1000 mg/dL (NEGATIVE); KETONE URINE 150 mg/dL (NEGATIVE); LEUKOCYTES URINE NEGATIVE (NEGATIVE); NITRITE URINE NEGATIVE (NEGATIVE); PROTEIN URINE NEGATIVE (NEGATIVE); SP GRAVITY URINE 1.022; TURBIDITY URINE CLEAR (CLEAR); UROBILINOGEN URINE NORMAL (NORMAL)
[2019-01-22 15:36] LABS: UR EPITHELIAL CELLS <10 /HPF (<10); URINE BACTERIA NEGATIVE /HPF; URINE RBC <10 /HPF (<10); URINE WBC <10 /HPF (<10)
[2019-01-22 15:39] LABS: AGAP 38; ALB/GLOB RATIO 1.2; ALBUMIN 4.2 g/dL (3.5-5.0); ALKALINE PHOSPHATASE 170 U/L (32-104); BUN 23 mg/dL (8-22); CALCIUM 9.5 mg/dL (8.8-10.2); CHLORIDE 73 mmol/L (98-107); CK PROFILE 37 U/L (24-173); COSMO 310; CREATININE 1.2 mg/dL (0.5-0.9); ESTIMATED GFR 50; GLUCOSE 1382 mg/dL (70-104); GOT 87 U/L (10-30); GPT 112 U/L (10-36); MAGNESIUM 2.3 mg/dL (1.5-2.7); PHOSPHORUS 6.6 mg/dL (2.7-4.5); SODIUM 116 mmol/L (136-145); TCO2 5 mmol/L (25-35); TOTAL BILIRUBIN 0.19 mg/dL (0.20-1.00); TOTAL PROTEIN 7.8 g/dL (6.3-8.3)
--- NOTE | 2019-01-22 15:55 | PROVIDER DOCUMENTATION ---
This chart was entered by Deanna Roche Scribe, acting as scribe for Gerardo Martinez MD. HPI-General Adult - General Chief Complaint: DKA ALERT Stated Complaint: poss dka Time Seen by Provider: 01/22/19 14:38 Source: patient Allergies/Adverse Reactions: Patient Allergies Allergy/AdvReac Type Severity Reaction Status Date / Time No Known Allergies Allergy Verified 01/22/19 14:01 Home Medications: Home Medication List Medication Instructions Recorded Confirmed Last Taken Type Hydrocodone/APAP 10 mg/325 mg 1 ea PO Q4H PRN PRN #20 tab 11/22/18 12/13/18 01/21/19 Rx [Energy-10] Insulin Detemir [Levemir] 15 unit SUBQ BID 30 Days #1 12/18/18 01/22/19 Rx insuln.pen Sucralfate [Carafate] 1 gm PO AC + HS 30 Days #120 tab 12/18/18 01/21/19 Rx Insulin Novolog 70/30 [Novolog Mix 1 dose SQ PRN PRN 01/22/19 01/22/19 01/21/19 History 70/30] - History of Present Illness -Gen Adult Nature of Presenting Problems: Patient is a 43 year old female who presents with generalized body aches, nausea and increase in thirst. States symptoms started last night. History of DKA. Location of Pain/Injury: reports: generalized Quality of Pain: reports: aching Severity: reports: mild Onset/Duration: reports: last night Timing: reports: still present, getting worse Associated Symptoms: reports: nausea, other (increase in thirst) Similar Symptoms Previously?: Yes Recently seen or treated by another doctor?: Yes - Diabetes Related Context Context: reports: high blood sugar Review of Systems - Adult - REVIEW OF SYSTEMS - ADULT Constitutional: reports: no symptoms reported Eyes: reports: no symptoms reported Ears, Nose, Mouth & Throat: reports: no symptoms reported Cardiovascular: reports: no symptoms reported Respiratory: reports: no symptoms reported Gastrointestinal: reports: see HPI, nausea. denies: diarrhea, vomiting Genitourinary: reports: no symptoms reported Musculoskeletal: reports: see HPI, muscle aches (generalized). denies: back pain, neck pain Integumentary: reports: no symptoms reported Neurological: reports: no symptoms reported Psychiatric: reports: no symptoms reported Endocrine: reports: see HPI, increased thirst. denies: excessive sweating, polyuria Hematologic/Lymphatic: reports: no symptoms reported Allergic/Immunologic: reports: no symptoms reported All Other Systems: Reviewed and Negative Past History - Adult - PAST MEDICAL HISTORY-ADULT Review of Records: reports: Old Records Reviewed, Social history reviewed & non-contributory. Major Childhood Illnesses: reports: denies history Cardiovascular: reports: hyperlipidemia Respiratory: reports: denies history Gastrointestinal: reports: GERD Obstetrical/Gynecological: reports: denies history Genitourinary: reports: kidney disease, chronic UTI's, other (ARF) Musculoskeletal: reports: denies history Neurological: reports: Seizures/Epilepsy Psychiatric: reports: anxiety, depression Endocrine/Immune: reports: Diabetes Other Conditions: reports: denies history Additional History: Frequent ER visits - PRIOR SURGERIES/PROCEDURES Surgical/Procedure History: reports: cholecystectomy, BTL, , tonsillectomy - PRIOR HOSPITALIZATIONS Prior Hospitalizations: reports: for similar symptoms - IMMUNIZATION STATUS Childhood Immunizations: See Nurse Assessment Flu Vaccine: See Nurse Assessment - FAMILY HISTORY Family History: diabetes - SOCIAL HISTORY Smoking: cigarettes, greater than 1 pack/day Provider spent 3-5 mins advising pt. on dangers of tobacco.: Discussed manners to quit use, and f/u contacts for add'l counseling. Substance Use: denies Physical Exam-General - PHYSICAL EXAM-ADULT Initial Vital Signs Reviewed: Yes - CONSTITUTIONAL General Appearance: alert, mild distress, thin, other (ketotic smell). negative: lethargic - HEAD, EARS, NOSE, MOUTH & THROAT HENMT: normocephalic/atraumatic, dental decay (poor dentition), other (dry mucous membranes). negative: angioedema - RESPIRATORY Respiratory: chest non-tender, lungs clear, normal breath sounds, increased rate . negative: respiratory distress, crackles, rhonchi, stridor - CARDIOVASCULAR Cardiovascular: normal peripheral pulses, tachycardia. negative: systolic murmur - GASTROINTESTINAL (ABDOMEN) Abdominal Exam: normal bowel sounds, soft, tenderness (suprapubic). negative: guarding, rebound - MUSCULOSKELETAL Extremity: normal inspection. negative: deformity, erythema - SKIN Integumentary: normal color, warm/dry, other (poor skin turgor). negative: diaphoresis, pallor - NEUROLOGIC Neurologic: grossly normal. negative: aphasia, facial droop - PSYCHIATRIC Psych/Mental Status: normal mood/affect, oriented x 3. negative: anxious Progress - PLAN OF CARE/RESULTS Progress/Plan/Lab Results: Vital Signs - 8 hr 01/22/19 13:54 01/22/19 13:56 01/22/19 14:00 Temperature 97.8 F Pulse Rate 118 H Respiratory Rate 24 Blood Pressure 116/60 116/60 O2 Sat by Pulse Oximetry 100 100 100 Laboratory Results - last 24 hr 01/22/19 13:58 POC Glucose 500 H D Result Diagrams: 01/22/19 14:44 01/22/19 14:44 - REASSESSMENT Reassessment #1 Time Reassessed: 15:52 Status: improving (DKA protocol started, given IVF bolus, IV insulin and drip, IV morphine/zofran and pepcid.) - EKG 1 Time of EKG reading by physician:: 14:02 EKG Read and Signed by:: Gerardo Martinez EKG Interpretation (*Must complete 3 of following elements*): Abnormal Rate: 116 Rhythm: sinus tachycardia [place]: normal [place] Interval: normal Comments: nonspecific ST abnormality. - XRAY 1 XRAY Study: Chest Impression: See EMR Report ( EXAM: CHEST-PORTABLE INDICATION: ams TECHNIQUE: One view COMPARISON: 12/13/2018 FINDINGS: The lungs are grossly clear. There is no discrete pleural fluid collection or pneumothorax. The cardiomediastinal silhouette and central vasculature are grossly unremarkable. IMPRESSION: No evidence of acute pathology by plain radiograph. Electronically signed by German Aguirre 01/22/2019 3:09 PM 01/22/19 150 Interpreting Physician: German Aguirre MD Dictated Date/Time: 01/22/19 1509 cc: Gerardo Martinez MD; Buffy Johnson MD) - CONSULTS/PCP/HOSPITALIST Notification #1 *Consult/PCP/Hospitalist*: Amber MILLER Time Discussed: 15:53 (Admit to [facility]) Consult Disposition: Will see in ED Departure - Departure Date of Disposition Decision: 01/22/19 Time of Disposition Decision: 15:53 DIAGNOSIS: Diabetic ketoacidosis associated with type 1 diabetes mellitus Qualifiers: Diabetes mellitus complication detail: without coma Qualified Code(s): E10.10 - Type 1 diabetes mellitus with ketoacidosis without coma Disposition: ADMITTED INPATIENT Certified Medical Emergency: Emergent Condition: Fair Referrals and Follow-Ups: Buffy Johnson MD [Primary Care Provider] - - Critical Care Note This patient required my direct & personal management of CC.: Yes Total Time (mins): 45 ([employer]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 Attestation - Physician/ KIAN Attestation Patient care was provided by Advanced Practice Provider:: No The physician spent face to face time with patient:: Yes Advanced Practice Provider documentation review:: Supervising physician onsite and consulted in the evaluation and care of this patient. The physician did have a face to face encounter with the patient. This chart was documented by the indicated scribe, (Deanna Roche Scribe) and accurately reflects the services I performed and decisions made by me, Gerardo Martinez MD, as attested by the provider's signature.
[2019-01-22 15:58] LABS: UR AMPHETAMINES QUAL PRESUMPTIVE POSITIVE (NONE DETECT); UR BARBITUATES QUAL NONE DETECTED (NONE DETECT); UR BENZODIAZEPIN QUAL NONE DETECTED (NONE DETECT); UR CANNABINOIDS QUAL NONE DETECTED (NONE DETECT); UR COCAINE QUAL NONE DETECTED (NONE DETECT); UR METHADONE QUAL NONE DETECTED (NONE DETECT); UR OPIATES QUAL NONE DETECTED (NONE DETECT); UR OXYCODONE QUAL NONE DETECTED (NONE DETECT); UR PCP QUAL NONE DETECTED (NONE DETECT)
[2019-01-22] MEDS: NS 1,000 ML IV SCH ×3 (17:05→20:51)
--- NOTE | 2019-01-22 17:58 | HISTORY AND PHYSICAL ---
PRIMARY CARE PROVIDER: Dr. Buffy Johnson. CHIEF COMPLAINT: Pain all over. HISTORY OF PRESENT ILLNESS: Ms. Mallory is a 43-year-old female well known to our service for a history of noncompliant diabetes mellitus type 1, who presented to the ED complaining of pain all over. She stated that she has been taking her medication as prescribed. She started feeling bad yesterday. She came to the ED this morning and she was found to be in severe DKA. She was admitted on IV resuscitation, IV insulin, and we will place her on the DKA protocol and monitor her in the ICU. No source of infection. PAST MEDICAL HISTORY: 1. Diabetes mellitus type 1. 2. Medical noncompliance. PAST SURGICAL HISTORY: Denies. SOCIAL HISTORY: Denies any illicit drug use. Positive for amphetamines. No alcohol. Half pack per day smoker. ALLERGY: No known drug allergies. HOME MEDICATIONS: Have not been reconciled. However, she was last discharged on hydrocodone, BuSpar, Levemir, Carafate. REVIEW OF SYSTEMS: Twelve-point review of systems completely negative except for those mentioned in HPI. She did complain of body pain all over, extreme thirst, frequent urination, chills but no fever. No cough. Some shortness of breath related to the pain. No chest pain, palpitations, nausea, vomiting, or diarrhea. PHYSICAL EXAMINATION: VITAL SIGNS: Temperature is 97.8 degrees, heart rate 118, respirations 24, blood pressure 116/60, O2 is 100% on room air. GENERAL: Ms. Mallory is an ill-appearing, 43-year-old female who is lying in the bed, grimacing and moaning, but in no acute distress. HEENT: Atraumatic, normocephalic. PERRL. NECK: Supple. Trachea midline. Poor dentition. Mucous membranes are dry. CARDIOVASCULAR: S1, S2 appreciated. No murmurs, gallops, rubs noted. No lower extremity edema. Bilateral pedal pulses are palpable. PULMONARY: Bilateral breath sounds. There is shallow breathing with no rales, rhonchi, or wheezes. GI: Flat, soft, nontender, nondistended. Positive bowel sounds 4 quadrants. EXTREMITIES: The patient moves all extremities well. NEUROLOGIC: She is awake, alert, oriented, complaining of pain. SKIN: Appears to be warm, dry, and intact. DIAGNOSTIC DATA: Chest x-ray: No evidence of acute disease. EKG: Sinus tachycardia. Nonspecific ST abnormality. LABORATORY DATA: White count 12, hemoglobin and hematocrit 10 and 37, platelet count is 447,000. ABG, pH 7.104, pCO2 13, PO2 109, bicarb 5.3, base excess -25, lactate 1.40. Sodium 116, potassium 6.0, carbon dioxide 5, anion gap 38, BUN 23, creatinine 1.2, blood glucose was 1,382, magnesium 2.3. Total bilirubin 0.19, AST 87, ALT 112, alkaline phosphatase 170. Troponin less than 0.010. ProBNP 301. Urinalysis: Greater than 1,000 glucose, 150 ketones. Negative for bacteria. Negative for nitrites. Acetone level was large. Toxicology screen positive for amphetamines. ASSESSMENT AND PLAN: 1. Severe diabetic ketoacidosis. The patient was given a bolus of insulin, initiated on fluid resuscitation. We will place her in the ICU on DKA protocol. We will trend serial labs. Frequent glucose checks. 2. Severe metabolic acidosis secondary to diabetic ketoacidosis. We will continue with treatment per protocol. 3. Diabetes mellitus type 1 with medical noncompliance. 4. Transaminitis. We will repeat laboratory data in the a.m. 5. Hyponatremia secondary to diabetic ketoacidosis. We will watch that closely. No mental status changes. 6. Hyperkalemia secondary to diabetic ketoacidosis. We will continue with IV insulin and recheck potassium levels. 7. Acute kidney injury secondary to severe dehydration. Continue with IV fluids. We will repeat an EKG at 6 p.m. and in the a.m. 8. Further recommendations to follow physician evaluation, laboratory and diagnostic data. Dictated by ANGELA Mohamud for Nona Valenzuela MD cc: Nona Valenzuela MD
[2019-01-22] MEDS ORDERED: TYLENOL PR PRN (18:06)
[2019-01-22] MEDS ORDERED: D5 NS 1,000 ML IV PRN (18:06)
[2019-01-22] MEDS ORDERED: ZOFRAN IV PRN (18:06)
[2019-01-22 18:21] LABS: ALLEN TEST YES; BE -19.4 mmoll (-3.0-3.0); BLOOD TYPE ARTERIAL; HCO3-(ACT) 9.8 mmoll (20.0-26.0); METHB 0.7 % (0.0-1.5); O2(CT) 14.4 mL/dL (15.0-23.0); O2HB 96.4 % (95.0-99.0); PCO2(98.6) 20 mmHg (35-45); PO2(98.6) 112 mmHg (60-100); SAMPLE BLOOD; SAO2 97.7 % (95.0-100.0); THB 10.5 g/dL (11.5-17.4)
[2019-01-22] MEDS ORDERED: POTASSIUM CHLORIDE 20 MEQ in NS 100 ML IV PRN (18:21)
[2019-01-22] MEDS ORDERED: POTASSIUM CHLORIDE 40 MEQ in NS 250 ML IV PRN (18:21)
[2019-01-22 18:26] LABS: MODALITY ROOM AIR; pH(98.6) 7.17 (7.35-7.45)
[2019-01-22 19:36] LABS: AGAP 29; BUN 19 mg/dL (8-22); CALCIUM 8.7 mg/dL (8.8-10.2); CHLORIDE 96 mmol/L (98-107); COSMO 288; ESTIMATED GFR > 60; GLUCOSE 477 mg/dL (70-104); MAGNESIUM 1.9 mg/dL (1.5-2.7); PHOSPHORUS 2.7 mg/dL (2.7-4.5); POTASSIUM 4.1 mmol/L (3.5-5.1); SODIUM 132 mmol/L (136-145); TCO2 7 mmol/L (25-35)
[2019-01-22] MEDS: TYLENOL PO PRN (19:58)
[2019-01-22] MEDS ORDERED: ROCEPHIN 1 GM in NS 50 ML IV SCH (20:15)
[2019-01-22] MEDS: NORCO-10 PO PRN (22:23)
[2019-01-22] MEDS: COMPAZINE IV PRN (22:24)
[2019-01-22 23:35] LABS: AGAP 14; BUN 16 mg/dL (8-22); CALCIUM 8.3 mg/dL (8.8-10.2); CHLORIDE 104 mmol/L (98-107); COSMO 273; CREATININE 0.7 mg/dL (0.5-0.9); ESTIMATED GFR > 60; GLUCOSE 124 mg/dL (70-104); MAGNESIUM 1.5 mg/dL (1.5-2.7); PHOSPHORUS 1.6 mg/dL (2.7-4.5); POTASSIUM 3.7 mmol/L (3.5-5.1); SODIUM 135 mmol/L (136-145); TCO2 17 mmol/L (25-35)
[2019-01-23 04:05] LABS: AGAP 11; BUN 12 mg/dL (8-22); CALCIUM 8.4 mg/dL (8.8-10.2); CHLORIDE 105 mmol/L (98-107); COSMO 274; CREATININE 0.6 mg/dL (0.5-0.9); ESTIMATED GFR > 60; GLUCOSE 148 mg/dL (70-104); MAGNESIUM 1.5 mg/dL (1.5-2.7); PHOSPHORUS 2.1 mg/dL (2.7-4.5); POTASSIUM 3.7 mmol/L (3.5-5.1); SODIUM 136 mmol/L (136-145); TCO2 20 mmol/L (25-35)
[2019-01-23 04:24] LABS: ALLEN TEST YES; BE -3.5 mmoll (-3.0-3.0); BLOOD TYPE ARTERIAL; HCO3-(ACT) 22.2 mmoll (20.0-26.0); METHB 0.7 % (0.0-1.5); O2HB 96.3 % (95.0-99.0); PCO2(98.6) 37 mmHg (35-45); PO2(98.6) 120 mmHg (60-100); SAMPLE BLOOD; SAO2 97.7 % (95.0-100.0); THB 9.4 g/dL (11.5-17.4); pH(98.6) 7.37 (7.35-7.45)
[2019-01-23 04:25] LABS: MODALITY ROOM AIR
[2019-01-23] MEDS: NS 1,000 ML IV SCH ×2 (05:10→07:35)
[2019-01-23] MEDS: NORCO-10 PO PRN ×2 (05:10→17:43)
[2019-01-23] MEDS: COMPAZINE IV PRN (05:17)
[2019-01-23] MEDS ORDERED: MAGNESIUM SULFATE 2 GM/S.W.I. 2 GM/50 ML IVPB IV ONE (06:07)
[2019-01-23] MEDS ORDERED: LEVEMIR SUBQ ONE (06:53)
--- NOTE | 2019-01-23 07:09 | Diag Imaging Result Doc PS360 ---
EXAM: CHEST-PORTABLE 01/23/2019 HISTORY: follow up TECHNIQUE: AP portable at 0532 COMMENT: There is no evidence of acute cardiac or pulmonary disease. Compared to 01/22/2019 there has been no significant change. IMPRESSION: No acute disease. Electronically signed by Steven Haines 01/23/2019 7:07 AM
[2019-01-23] MEDS: HUMULIN R SUBQ SCH ×5 (07:34→20:28)
[2019-01-23] MEDS ORDERED: INSULIN PEN NEEDLES ONE (07:35)
[2019-01-23 08:08] LABS: BASO# 0.04 X1000 (0.0-0.2); BASO% 0.2 % (0.0-0.8); EOS# 0.11 X1000 (0.0-0.7); EOS% 0.6 % (0.0-10.0); HEMATOCRIT 31.9 % (37.0-47.0); HEMOGLOBIN 9.8 g/dL (12.0-16.0); IMM GRAN# 0.04 X1000 (0.0-0.04); IMM GRAN% 0.2 % (0.0-0.5); LYMPH# 4.02 X1000 (1.2-3.4); LYMPH% 22.9 % (20.5-51.1); MCH 24.4 PG (27-31); MCHC 30.7 g/dL (33-37); MCV 79.4 FL (81-99); MONO# 0.99 X1000 (0.11-0.59); MONO% 5.6 % (1.7-9.3); MPV 8.7 FL (7.4-10.4); NEUT# 12.33 X1000 (1.4-6.5); NEUT% 70.5 % (42.2-75.2); PLT 417 X1000 (130-400); RBC 4.02 XMIL (4.2-5.4); WBC 17.53 X1000 (4.8-10.8)
[2019-01-23 08:28] LABS: AGAP 11; BUN 10 mg/dL (8-22); CALCIUM 8.6 mg/dL (8.8-10.2); CHLORIDE 105 mmol/L (98-107); COSMO 274; CREATININE 0.7 mg/dL (0.5-0.9); ESTIMATED GFR > 60; GLUCOSE 118 mg/dL (70-104); MAGNESIUM 2.3 mg/dL (1.5-2.7); PHOSPHORUS 1.5 mg/dL (2.7-4.5); POTASSIUM 3.5 mmol/L (3.5-5.1); SODIUM 137 mmol/L (136-145); TCO2 21 mmol/L (25-35)
[2019-01-23] MEDS ORDERED: HUMULIN R SUBQ SCH (16:45)
--- NOTE | 2019-01-23 17:21 | PROGRESS NOTE ---
DATE: 01/23/2019 SUBJECTIVE: The patient is resting comfortably in bed. No acute events noted overnight. OBJECTIVE: Vital Signs: Temperature 98.6 degrees, blood pressure 107/72, heart rate 106, respirations 16, O2 saturations 100% on room air. General: This is a cachectic female lying in bed in no acute distress. Heart: S1, S2 normal. Regular rate and rhythm. Lungs: Clear to auscultation bilaterally. Abdomen: Positive bowel sounds. Soft, nontender, nondistended. Extremities: No edema, no cyanosis. Neuro: The patient is alert and oriented x3. LABS: White blood cell count 17, hemoglobin 9.8, hematocrit 31, platelets 417,000. Sodium 137, potassium 3.5, chloride 105, CO2 21, BUN 10, creatinine 0.7, glucose 118, magnesium 2.3, phosphorus 1.5. ASSESSMENT AND PLAN: 1. Diabetic ketoacidosis. Resolved. The anion gap has closed. Will transition patient to subcutaneous insulin with sliding scale coverage. The patient will be placed on a diabetic diet. 2. Poorly controlled insulin-dependent diabetes mellitus. Will continue to adjust the patient's insulin regimen. 3. Leukocytosis. There is no obvious source of infection. The patient is currently on Zosyn. 4. Gastroesophageal reflux disease. Continue on omeprazole. 5. Deep vein thrombosis prophylaxis. Will start the patient on Lovenox. cc: Nona Valenzuela MD
[2019-01-23 17:37] LABS: AGAP 16; ALBUMIN 3.1 g/dL (3.5-5.0); BUN 7 mg/dL (8-22); CHLORIDE 98 mmol/L (98-107); COSMO 267; CREATININE 0.7 mg/dL (0.5-0.9); ESTIMATED GFR > 60; GLUCOSE 273 mg/dL (70-104); PHOSPHORUS 1.4 mg/dL (2.7-4.5); POTASSIUM 3.7 mmol/L (3.5-5.1); SODIUM 129 mmol/L (136-145); TCO2 15 mmol/L (25-35)
[2019-01-23] MEDS ORDERED: SODIUM PHOSPHATE 40 MMOL in NS 250 ML IV ONE (17:41)
[2019-01-23] MEDS: ZOSYN 3.375 GM in NS 50 ML IV SCH ×2 (17:45→23:02)
[2019-01-23] MEDS ORDERED: 1/2 NS IV ONE (18:27)
[2019-01-23] MEDS ORDERED: SODIUM PHOSPHATE IV ONE (18:27)
[2019-01-23] MEDS: LOVENOX SUBQ SCH (20:27)
[2019-01-23] MEDS: LEVEMIR SUBQ SCH (20:27)
[2019-01-23] MEDS ORDERED: LEVEMIR SUBQ SCH (21:00)
[2019-01-23] MEDS: BUSPAR PO SCH ×2 (22:40→23:02)
[2019-01-24] MEDS: NORCO-10 PO PRN ×4 (00:17→19:53)
[2019-01-24] MEDS: ZOSYN 3.375 GM in NS 50 ML IV SCH ×2 (05:21→11:06)
[2019-01-24 05:49] LABS: BASO# 0.02 X1000 (0.0-0.2); BASO% 0.2 % (0.0-0.8); EOS# 0.07 X1000 (0.0-0.7); EOS% 0.7 % (0.0-10.0); HEMOGLOBIN 8.9 g/dL (12.0-16.0); IMM GRAN# 0.02 X1000 (0.0-0.04); IMM GRAN% 0.2 % (0.0-0.5); LYMPH# 2.06 X1000 (1.2-3.4); LYMPH% 19.7 % (20.5-51.1); MCH 24.7 PG (27-31); MCHC 30.7 g/dL (33-37); MCV 80.6 FL (81-99); MONO# 0.57 X1000 (0.11-0.59); MONO% 5.4 % (1.7-9.3); MPV 9.2 FL (7.4-10.4); NEUT# 7.74 X1000 (1.4-6.5); NEUT% 73.8 % (42.2-75.2); PLT 354 X1000 (130-400); RDW 16.2 % (11.5-14.5); WBC 10.48 X1000 (4.8-10.8)
[2019-01-24] MEDS: HUMULIN R SUBQ SCH ×4 (06:00→21:51)
[2019-01-24 06:13] LABS: AGAP 13; BUN 5 mg/dL (8-22); CALCIUM 8.1 mg/dL (8.8-10.2); CHLORIDE 104 mmol/L (98-107); COSMO 277; CREATININE 0.6 mg/dL (0.5-0.9); ESTIMATED GFR > 60; GLUCOSE 146 mg/dL (70-104); PHOSPHORUS 4.2 mg/dL (2.7-4.5); POTASSIUM 3.2 mmol/L (3.5-5.1); SODIUM 139 mmol/L (136-145); TCO2 22 mmol/L (25-35)
[2019-01-24 06:16] LABS: HEMOGLOBIN A1C 13.5 % (4.8-6.0)
[2019-01-24] MEDS: PRILOSEC PO SCH (06:16)
[2019-01-24] MEDS: BUSPAR PO SCH ×3 (09:27→21:42)
[2019-01-24] MEDS: LEVEMIR SUBQ SCH (09:28)
[2019-01-24] MEDS: NS 1,000 ML IV SCH ×2 (09:30→09:31)
[2019-01-24] MEDS: KLOR-CON PO SCH ×2 (15:15→17:04)
--- NOTE | 2019-01-24 15:20 | PROGRESS NOTE ---
DATE: 01/24/2019 INTERVAL HISTORY: No acute events overnight. She did have episode of hypoglycemia. In the morning time she states that she has been taking her insulin judiciously, which is questionable considering her very increased hemoglobin A1c. She states she keeps her insulin with her all the time. She denies any nausea, vomiting or abdominal pain. Extensively counseled about need for taking her insulin. She states that she just probably was stressed, which induced her DKA this time around since she is from her . VITALS: Temperature 98.2 degrees, pulse 96, respiratory rate 16, blood pressure 110/75, saturating 100% on room air. PHYSICAL EXAMINATION: General: Cachectic with severe protein energy malnutrition, not in acute distress. Oral cavity: Dry. She does have swollen lip on the right side and what appears to be a superficial oral ulcer. She also has an insect bite affecting the dorsal aspect of the Lungs: Air entry bilaterally equal with no wheeze, rhonchi, crackles. S1 normal. No murmur or gallop. Abdomen: Scaphoid, soft, nontender. Extremity: No lower extremity edema. Neurologic: She is alert and oriented x3. LABS/MICROBIOLOGY/X-RAYS: Suggestive of resolution of leukocytosis, microcytic anemia, normal platelet count. Hypokalemia, being repleted. Normal kidney function. She did have episode of hypoglycemia with blood sugar in 40s, which has improved to 90 at the moment. She is eating better. No positive microbiological data and her antibiotics have been discontinued. No new imaging. ASSESSMENT AND PLAN: 1. Diabetic ketoacidosis likely due to medication noncompliance, though the patient claims to be taking her insulin regularly, now resolved. I will keep her on insulin Lantus and sliding scale insulin , and we will keep a close eye over her blood sugars to avoid hypoglycemia. She may need further adjustment in her insulin dose based on her blood sugar levels. I am repleting her hypokalemia as well. Her hemoglobin A1c was 13.5, which has been the case historically. 2. Leukocytosis. This could be in the setting of diabetic ketoacidosis. Blood culture negative, so I will stop the intravenous antibiotics. 3. Others. Continue omeprazole for gastroesophageal reflux disease and Lovenox for deep vein thrombosis prophylaxis. DISPOSITION: I will monitor patient inside the hospital for another day because of her hypoglycemia, and plan would be to discharge in the next 24 hours. Plan of care discussed with her. All questions were answered. cc: Jer Gerard MD MTDD
[2019-01-24] MEDS: TYLENOL PO PRN (17:15)
[2019-01-24] MEDS: LOVENOX SUBQ SCH ×2 (19:53→21:52)
[2019-01-24] MEDS ORDERED: LEVEMIR SUBQ SCH (21:00)
[2019-01-25] MEDS: NORCO-10 PO PRN ×2 (01:17→08:21)
[2019-01-25 06:03] LABS: AGAP 10; ALBUMIN 3.3 g/dL (3.5-5.0); BUN 5 mg/dL (8-22); CALCIUM 9.1 mg/dL (8.8-10.2); CHLORIDE 101 mmol/L (98-107); COSMO 272; CREATININE 0.5 mg/dL (0.5-0.9); ESTIMATED GFR > 60; GLUCOSE 107 mg/dL (70-104); PHOSPHORUS 3.3 mg/dL (2.7-4.5); POTASSIUM 3.8 mmol/L (3.5-5.1); SODIUM 137 mmol/L (136-145); TCO2 26 mmol/L (25-35)
[2019-01-25] MEDS: HUMULIN R SUBQ SCH ×2 (06:25→11:47)
[2019-01-25] MEDS: PRILOSEC PO SCH (06:25)
[2019-01-25] MEDS: BUSPAR PO SCH (08:20)
[2019-01-25] MEDS ORDERED: LEVEMIR SUBQ SCH (09:00)
[2019-01-25 12:06] VITALS: BP 140/85
--- NOTE | 2019-01-25 17:17 | DISCHARGE SUMMARY ---
ADMISSION DATE: 01/22/2019 DISCHARGE DATE: 01/25/2019 CONSULTATIONS: None. PERTINENT PROCEDURES: Chest x-ray: No acute disease. DISCHARGE DIAGNOSES: 1. Diabetic ketoacidosis acidosis, likely secondary to medication noncompliance, now resolved. The patient will continue on Lantus and sliding scale insulin. 2. Leukocytosis in the setting of diabetic ketoacidosis. All infectious workup was negative. 3. Gastroesophageal reflux disease. Continue proton pump inhibitor. 4. Elevated lactate in the setting of diabetic ketoacidosis. No infectious processes found. HOSPITAL COURSE: Briefly, Ms. Mallory is a 43-year-old female, well known to our service for history of noncompliant diabetes mellitus type 1 and several admissions for DKA. Presented to the ED complaining of pain all over. Workup in the ED revealed a severe diabetic ketoacidosis. She was initiated on IV resuscitation, given IV insulin, and placed on the DKA protocol and monitored in the ICU. Infectious workup was completely negative. She was taken off the DKA protocol, placed on sliding scale and long-acting insulin. She has tolerated her diet. Adjustments were made to her insulin regimen. She again has been educated on compliance with her diabetic medicines as well as her diet. Her hemoglobin A1c is still extremely elevated at 13. VITAL SIGNS: At time of her discharge, temperature is 98.2 degrees, heart rate 103, respirations 14, blood pressure 140/85. O2 is 100% on room air. DISCHARGE DIET: Diabetic. DISCHARGE MEDICATIONS: 1. Buspirone 15 mg half tab p.o. b.i.d. 2. Seroquel 25 mg p.o. at bedtime. 3. Augmentin 875 p.o. q.8 hours. 4. Carafate 1 g p.o. a.c., at bedtime. 5. Levemir 20 units subcutaneously b.i.d. as well as educated to check her sugars regularly and follow up with the primary care provider. 6. [place] 10 one tab p.o. q.6 hours p.r.n. pain. FOLLOWUP: Ms. Mallory is being discharged home with self care. She has repeatedly been educated on diabetes and taking her medications. She is to follow up with her primary care provider in the next 7 to 10 days. She can return to the ED or call 911 for any worsening of symptoms. Dictated by ANGELA Mohamud for Krishan Berrios MD cc: Krishan Berrios MD
== END 2019-01-25 13:25 | disposition home or self-care (01) | DRG 638 ==
LOC: SUPCPDRO → ICU 13:52 → ED 13:52 → SUATTDRO 17:00 → OBSVTOIN 17:00 → 1N 01-23 15:55
PROVIDERS: ATTEND Internal Medicine

== ENCOUNTER 2019-03-26 19:46 | Inpatient (IN) ==
[2019-03-26] MEDS ORDERED: NS 1,000 ML ONE (20:04)
[2019-03-26] MEDS ORDERED: NS 1,000 ML IV ONE ×2 (20:07→20:48)
[2019-03-26] MEDS ORDERED: REGLAN IV ONE (20:08)
[2019-03-26] MEDS ORDERED: TORADOL IV ONE (20:08)
[2019-03-26] MEDS ORDERED: HUMULIN R SUBQ ONE (20:08)
--- NOTE | 2019-03-26 20:37 | Diag Imaging Result Doc PS360 ---
CHEST-1 VIEW - 03/26/2019 INDICATION: weakness COMPARISON: 01/23/2019 FINDINGS: The lungs are normally expanded and clear. Heart size and mediastinal contours are normal. No pneumothorax or pleural effusion. IMPRESSION: Negative exam. Electronically signed by Blayne Estrada 03/26/2019 8:35 PM
[2019-03-26 20:44] LABS: BASO# 0.06 X1000 (0.0-0.2); BASO% 0.4 % (0.0-0.8); EOS# 0.03 X1000 (0.0-0.7); EOS% 0.2 % (0.0-10.0); HEMOGLOBIN 13.5 g/dL (12.0-16.0); IMM GRAN# 0.06 X1000 (0.0-0.04); IMM GRAN% 0.4 % (0.0-0.5); LYMPH# 3.88 X1000 (1.2-3.4); MCH 25.5 PG (27-31); MCHC 33.8 g/dL (33-37); MCV 75.6 FL (81-99); MONO# 1.02 X1000 (0.11-0.59); MONO% 6.6 % (1.7-9.3); MPV 9.7 FL (7.4-10.4); NEUT# 10.45 X1000 (1.4-6.5); NEUT% 67.4 % (42.2-75.2); PLT 590 X1000 (130-400); RBC 5.29 XMIL (4.2-5.4); RDW 16.1 % (11.5-14.5)
[2019-03-26 20:52] LABS: URINE SOURCE CLEAN CATCH
[2019-03-26 20:54] LABS: ALLEN TEST YES; BE -4.7 mmoll (-3.0-3.0); BLOOD TYPE ARTERIAL; HCO3-(ACT) 21.3 mmoll (20.0-26.0); METHB 0.6 % (0.0-1.5); MODALITY ROOM AIR; O2(CT) 14.4 mL/dL (15.0-23.0); PCO2(98.6) 37 mmHg (35-45); PO2(98.6) 112 mmHg (60-100); SAMPLE BLOOD; SAO2 97.1 % (95.0-100.0); THB 10.5 g/dL (11.5-17.4); pH(98.6) 7.35 (7.35-7.45)
[2019-03-26 21:05] LABS: BILIRUBIN URINE NEGATIVE (NEGATIVE); BLOOD URINE NEGATIVE (NEGATIVE); COLOR STRAW; GLUCOSE URINE >1000 mg/dL (NEGATIVE); KETONE URINE NEGATIVE (NEGATIVE); LEUKOCYTES URINE NEGATIVE (NEGATIVE); NITRITE URINE NEGATIVE (NEGATIVE); PROTEIN URINE NEGATIVE (NEGATIVE); SP GRAVITY URINE 1.028; TURBIDITY URINE CLEAR (CLEAR); UROBILINOGEN URINE NORMAL (NORMAL)
[2019-03-26 21:07] LABS: UR EPITHELIAL CELLS <10 /HPF (<10); URINE BACTERIA NEGATIVE /HPF; URINE RBC <10 /HPF (<10); URINE WBC <10 /HPF (<10)
[2019-03-26 21:08] LABS: ACETONE SERUM NEGATIVE (NEGATIVE)
[2019-03-26 21:17] LABS: INR 0.9; PROTIME 12.2 Seconds (11.0-16.0)
[2019-03-26 21:18] LABS: UR AMPHETAMINES QUAL NONE DETECTED (NONE DETECT); UR BARBITUATES QUAL NONE DETECTED (NONE DETECT); UR BENZODIAZEPIN QUAL NONE DETECTED (NONE DETECT); UR CANNABINOIDS QUAL NONE DETECTED (NONE DETECT); UR COCAINE QUAL NONE DETECTED (NONE DETECT); UR METHADONE QUAL NONE DETECTED (NONE DETECT); UR OPIATES QUAL NONE DETECTED (NONE DETECT); UR OXYCODONE QUAL NONE DETECTED (NONE DETECT); UR PCP QUAL NONE DETECTED (NONE DETECT)
[2019-03-26 21:22] LABS: CK PROFILE 45 U/L (24-173)
[2019-03-26 21:27] LABS: PTT 23.2 Seconds (22.3-41.8)
[2019-03-26 21:30] LABS: ALB/GLOB RATIO 1.3; CALCIUM 11.6 mg/dL (8.8-10.2); CREATININE 1.4 mg/dL (0.5-0.9); POTASSIUM 3.2 mmol/L (3.5-5.1); TOTAL BILIRUBIN 0.45 mg/dL (0.20-1.00); TOTAL PROTEIN 8.9 g/dL (6.3-8.3)
[2019-03-26 21:41] LABS: MAGNESIUM 1.9 mg/dL (1.5-2.7); PHOSPHORUS 4.3 mg/dL (2.7-4.5)
[2019-03-26] MEDS ORDERED: KLOR-CON PO ONE (22:02)
[2019-03-26] MEDS ORDERED: ZOFRAN IV PRN (22:02)
--- NOTE | 2019-03-26 22:02 | PROVIDER DOCUMENTATION ---
This chart was entered by Wily Zacarias Scribe, acting as scribe for Pablo Elkins MD. HPI-General Adult - General Chief Complaint: High Blood Sugar Stated Complaint: poss dka Time Seen by Provider: 03/26/19 19:56 Source: patient, EMS Allergies/Adverse Reactions: Patient Allergies Allergy/AdvReac Type Severity Reaction Status Date / Time No Known Allergies Allergy Verified 01/22/19 14:01 Home Medications: Home Medication List Medication Instructions Recorded Confirmed Last Taken Type Sucralfate [Carafate] 1 gm PO AC + HS 30 Days #120 tab 12/18/18 01/23/19 Unknown Rx Buspirone HCl 0.5 tab PO BID 01/23/19 01/23/19 Unknown History Amoxicillin/Pot Clavulanate 875 mg PO Q12HR #20 tab 01/25/19 Unknown Rx [Augmentin] Hydrocodone/APAP 10 mg/325 mg 1 tab PO Q6H PRN PRN #15 tab 01/25/19 Unknown Rx [[place]-10] Quetiapine [Seroquel] 25 mg PO QHS #30 tab 01/25/19 Unknown Rx - History of Present Illness -Gen Adult Nature of Presenting Problems: 43 yof presents to the ed for poss DKA. EMS reports " Pts FSBS was 488 , BP low as 50's / 30's , pt had LOC [employer]." pt c/o headache " head hurts really bad." "unable to see." pt states being stress out recently. pt states onset syms since yesterday pt states Hx of DM. pt states taking all meds correctly and no other meds today. Location of Pain/Injury: reports: head Pain Radiation: reports: no radiation Quality of Pain: reports: aching Severity: reports: mild Onset/Duration: reports: just prior to arrival Timing: reports: still present Context/Activities at Onset: reports: none Modifying Factors: improves with: nothing Associated Symptoms: reports: headaches. denies: back/neck pain, constipation, cough, diarrhea, fever/chills, nausea, vomiting Similar Symptoms Previously?: Yes (prior DKA) Recently seen or treated by another doctor?: No - Diabetes Related Context Context: reports: high blood sugar Review of Systems - Adult - REVIEW OF SYSTEMS - ADULT Constitutional: denies: chills, fever Eyes: reports: see HPI, decreased vision. denies: discharge, redness Ears, Nose, Mouth & Throat: reports: no symptoms reported Cardiovascular: reports: no symptoms reported Respiratory: denies: shortness of breath, wheezing Gastrointestinal: denies: abdominal pain, nausea, vomiting Genitourinary: reports: no symptoms reported Musculoskeletal: reports: no symptoms reported Integumentary: reports: no symptoms reported Neurological: reports: see HPI, headache/migraines. denies: numbness, slurred speech Psychiatric: reports: no symptoms reported Endocrine: reports: no symptoms reported Hematologic/Lymphatic: reports: no symptoms reported Allergic/Immunologic: reports: no symptoms reported All Other Systems: Reviewed and Negative Past History - Adult - PAST MEDICAL HISTORY-ADULT Review of Records: reports: Old Records Reviewed, Nursing Assessment Review, Medications Reviewed, Social history reviewed & non-contributory. Major Childhood Illnesses: reports: denies history Cardiovascular: reports: hyperlipidemia Respiratory: reports: denies history Gastrointestinal: reports: GERD Obstetrical/Gynecological: reports: denies history Genitourinary: reports: kidney disease, chronic UTI's, other (ARF) Musculoskeletal: reports: denies history Neurological: reports: Seizures/Epilepsy Psychiatric: reports: anxiety, depression Endocrine/Immune: reports: Diabetes Diabetes Type: Type 1 Other Conditions: reports: denies history Additional History: Frequent ER visits - PRIOR SURGERIES/PROCEDURES Surgical/Procedure History: reports: cholecystectomy, BTL, , tonsillectomy - PRIOR HOSPITALIZATIONS Prior Hospitalizations: reports: for similar symptoms - IMMUNIZATION STATUS Childhood Immunizations: See Nurse Assessment Flu Vaccine: See Nurse Assessment - FAMILY HISTORY Family History: diabetes - SOCIAL HISTORY Smoking: cigarettes, less than 1 pack/day Provider spent 3-5 mins advising pt. on dangers of tobacco.: Discussed manners to quit use, and f/u contacts for add'l counseling. Substance Use: denies Physical Exam-General - PHYSICAL EXAM-ADULT Initial Vital Signs Reviewed: Yes - CONSTITUTIONAL General Appearance: appears well, alert, mild distress. negative: lethargic - CHEST (BREASTS) Chest/Breast: deferred - GENITOURINARY Female Genitalia/Pelvic Exam: deferred Rectal Exam: deferred Hemoccult Exam: deferred - PSYCHIATRIC Psych/Mental Status: oriented x 3 Progress - PLAN OF CARE/RESULTS Progress/Plan/Lab Results: Vital Signs - 8 hr 03/26/19 19:55 Blood Pressure 66/53 Orders Category Date Time Status 0.9% Sodium Chloride Inj [Ns] 1,000 ml Med 03/26/19 20:04 Discontinued .ROUTE As directed Result Diagrams: 03/26/19 20:18 03/26/19 20:18 - EKG 1 Time of EKG reading by physician:: 20:10 EKG Read and Signed by:: Pablo Elkins EKG Interpretation (*Must complete 3 of following elements*): Abnormal Rate: 112 Rhythm: sinus tachycardia [place]: normal QRS: normal MD Interval: normal ST Wave: normal (T wave abnormality, consider inferior ischemia) Comments: Possible Lt atrial enlargement - XRAY 1 XRAY Study: Chest Impression: See EMR Report ( CHEST-1 VIEW - 03/26/2019 INDICATION: weakness COMPARISON: 01/23/2019 FINDINGS: The lungs are normally expanded and clear. Heart size and mediastinal contours are normal. No pneumothorax or pleural effusion. IMPRESSION: Negative exam. Electronically signed by Blayne Estrada 03/26/2019 8:35 PM 03/26/192034 Interpreting Physician: Blayne Estrada MD Dictated Date/Time: 03/26/192033 cc: Pablo Elkins MD; Buffy Johnson MD) - CONSULTS/PCP/HOSPITALIST Notification #1 *Consult/PCP/Hospitalist*: Consult w/ Dr. Otero Time Discussed: 21:59 Consult Disposition: other Departure - Departure Date of Disposition Decision: 03/26/19 Time of Disposition Decision: 22:02 DIAGNOSIS: Tobacco use DKA, type 1 Qualifiers: Diabetes mellitus complication detail: without coma Qualified Code(s): E10.10 - Type 1 diabetes mellitus with ketoacidosis without coma Disposition: ADMITTED INPATIENT 09 Certified Medical Emergency: Emergent Condition: Critical Referrals and Follow-Ups: Buffy Johnson MD [Primary Care Provider] - - Critical Care Note This patient required my direct & personal management of CC.: Yes Total Time (mins): 36 Critical Care Statement: This patient required my direct personal management to treat or rule out processes, the absence of which, could potentiallly result in sudden, clinically significant life or limb threatening deterioration. Attestation - Physician/ KIAN Attestation Patient care was provided by Advanced Practice Provider:: No The physician spent face to face time with patient:: Yes Advanced Practice Provider documentation review:: Supervising physician onsite and consulted in the evaluation and care of this patient. The physician did have a face to face encounter with the patient. This chart was documented by the indicated scribe, (Wily Zacarias, Konrad) and accurately reflects the services I performed and decisions made by me, Pablo Elkins MD, as attested by the provider's signature.
[2019-03-26] MEDS ORDERED: SODIUM PHOSPHATE IV PRN (22:47)
[2019-03-26] MEDS ORDERED: POTASSIUM CHLORIDE 20 MEQ/SWI 20 MEQ/100 ML IVPB IV PRN (22:47)
[2019-03-26] MEDS ORDERED: POTASSIUM CHLORIDE 10% LIQUID PO PRN (22:47)
[2019-03-26] MEDS ORDERED: NEO-SYNEPHRINE 50 MG in NS 250 ML IV SCH (22:47)
[2019-03-26] MEDS ORDERED: HUMULIN R 100 UNIT in NS 100 ML IV SCH (22:47)
[2019-03-26] MEDS: NS 1,000 ML IV SCH (22:47)
[2019-03-26] MEDS ORDERED: POTASSIUM CHLORIDE 40 MEQ/SWI 40 MEQ/100 ML IVPB IV PRN (22:47)
[2019-03-26] MEDS ORDERED: POTASSIUM CHLORIDE 20% LIQUID PO PRN (22:47)
[2019-03-26] MEDS ORDERED: D5W IV PRN (22:47)
[2019-03-26] MEDS ORDERED: MAGNESIUM SULFATE 2 GM/S.W.I. 2 GM/50 ML IVPB IV PRN (22:47)
[2019-03-26] MEDS ORDERED: D50W SYRINGE IV PRN (22:47)
[2019-03-26] MEDS ORDERED: D5 NS + KCL 20 MEQ 1,000 ML IV PRN ×2 (22:47→23:38)
[2019-03-26 23:48] LABS: HEMOGLOBIN A1C 12.8 % (4.8-6.0)
--- NOTE | 2019-03-26 23:50 | EKG Report ---
Test Performed on : 03/26/2019 8:10:02 PM Test Reason : weakness Blood Pressure : / mmHG Vent. Rate : 112 BPM Atrial Rate : 112 BPM P-R Int : 130 ms QRS Dur : 074 ms QT Int : 314 ms P-R-T Axes : 065 085 -49 degrees QTc Int : 428 ms Sinus tachycardia. Possible Left atrial enlargement T wave abnormality, consider inferior ischemia Abnormal ECG When compared with ECG of 22-JAN-2019 14:02, (Unconfirmed) Inverted T waves have replaced nonspecific T wave abnormality in Inferior leads Nonspecific T wave abnormality now evident in Anterior leads Unconfirmed Result
[2019-03-27 00:02] LABS: AGAP 12; BUN 15 mg/dL (8-22); CALCIUM 8.7 mg/dL (8.8-10.2); CHLORIDE 97 mmol/L (98-107); COSMO 271; CREATININE 0.7 mg/dL (0.5-0.9); ESTIMATED GFR > 60; GLUCOSE 61 mg/dL (70-104); MAGNESIUM 1.5 mg/dL (1.5-2.7); PHOSPHORUS 3.4 mg/dL (2.7-4.5); POTASSIUM 3.3 mmol/L (3.5-5.1); SODIUM 136 mmol/L (136-145); TCO2 27 mmol/L (25-35)
[2019-03-27] MEDS ORDERED: NS + KCL 40 MEQ 1,000 ML IV SCH (02:45)
[2019-03-27 04:26] LABS: AGAP 5; BUN 14 mg/dL (8-22); CALCIUM 8.3 mg/dL (8.8-10.2); CHLORIDE 100 mmol/L (98-107); COSMO 261; CREATININE 0.6 mg/dL (0.5-0.9); ESTIMATED GFR > 60; GLUCOSE 98 mg/dL (70-104); MAGNESIUM 2.4 mg/dL (1.5-2.7); PHOSPHORUS 2.6 mg/dL (2.7-4.5); SODIUM 130 mmol/L (136-145); TCO2 25 mmol/L (25-35)
[2019-03-27 04:27] LABS: POTASSIUM 6.2 mmol/L (3.5-5.1)
[2019-03-27] MEDS ORDERED: CALCIUM GLUCONATE 1 GM in NS 50 ML IV ONE (05:01)
[2019-03-27] MEDS ORDERED: NS 500 ML IV ONE (05:01)
[2019-03-27] MEDS ORDERED: HUMULIN R IV ONE (05:02)
[2019-03-27] MEDS ORDERED: ALBUTEROL 0.5% INH CONC FOR HYPERKALEMIA INH ONE (05:04)
[2019-03-27] MEDS ORDERED: D50W SYRINGE IV ONE (05:05)
[2019-03-27] MEDS: D5 NS 1,000 ML IV SCH ×2 (06:02→14:14)
--- NOTE | 2019-03-27 07:06 | Diag Imaging Result Doc PS360 ---
EXAM: CHEST-PORTABLE 03/26/2019 HISTORY: central line placement confirmation TECHNIQUE: AP portable at 2350 COMMENT: There is a right internal jugular central venous catheter with its tip in the superior vena cava just above the right atrium. There is an intravenous catheter present in the area of the external jugular on the left side of the neck. This was also present on 03/26/2019 at 2020. There is what appears to be a portion of a small caliber catheter projected over the medial left clavicle and first rib. This was not present at the time the previous study and is not seen on the subsequent radiograph. There is no evidence of pneumothorax or pleural fluid collection. IMPRESSION: No evidence of acute disease. Electronically signed by Steven Haines 03/27/2019 7:03 AM
[2019-03-27] MEDS: NS 1,000 ML IV SCH ×2 (07:09→07:10)
[2019-03-27 09:27] LABS: CHLORIDE 100 mmol/L (98-107); POTASSIUM 4.1 mmol/L (3.5-5.1); SODIUM 132 mmol/L (136-145); TCO2 18 mmol/L (25-35)
[2019-03-27 09:28] LABS: AGAP 14; BUN 11 mg/dL (8-22); CALCIUM 8.2 mg/dL (8.8-10.2); COSMO 270; CREATININE 0.6 mg/dL (0.5-0.9); GLUCOSE 208 mg/dL (70-104); MAGNESIUM 2.2 mg/dL (1.5-2.7); PHOSPHORUS 1.6 mg/dL (2.7-4.5)
[2019-03-27 11:23] LABS: AGAP 18; BUN 9 mg/dL (8-22); CALCIUM 8.2 mg/dL (8.8-10.2); CHLORIDE 98 mmol/L (98-107); COSMO 272; CREATININE 0.6 mg/dL (0.5-0.9); ESTIMATED GFR > 60; GLUCOSE 286 mg/dL (70-104); MAGNESIUM 1.9 mg/dL (1.5-2.7); PHOSPHORUS 1.7 mg/dL (2.7-4.5); SODIUM 131 mmol/L (136-145); TCO2 15 mmol/L (25-35)
[2019-03-27] MEDS ORDERED: NUBAIN IV PRN (12:03)
[2019-03-27] MEDS: NUBAIN IV PRN ×3 (12:30→21:05)
[2019-03-27 12:39] LABS: POTASSIUM 5.2 mmol/L (3.5-5.1)
--- NOTE | 2019-03-27 14:37 | PROGRESS NOTE ---
DATE: 03/27/2019 SUBJECTIVE: She still does not feel good. She is requesting something for pain but she is requesting to eat as well. OBJECTIVE: Blood pressure is 106/67, heart rate of 97, respiratory rate of 18, temperature of 98.5 degrees, 100% on room air.Cardiovascular: Regular rate and rhythm. Pulmonary: Bilateral breath sounds clear to auscultation. GI: Soft, nontender, nondistended. Bowel sounds were positive. LABORATORY DATA: White count 15, hemoglobin and hematocrit 13, 40, platelets 590,000. Bicarb today is 15 with a gap of 18 this morning, sugar of 286, phos of 1.7. PROBLEM LIST: 1. Diabetic ketoacidosis, she is here recurrently for this. She was here in January, she was here in December, 2 times in November, 1 time in September. I think there is some compliance issues but any case I think her gap is closing. We will continue IV fluids, insulin and follow. 2. Hypophosphatemia, we will supplement and monitor. DISPOSITION: Pending her clinical status. I think her leukocytosis is probably related DKA. There is no clear source of infection. If she does developed fever will need to initiate broad spectrum antibiotic such as vancomycin and Zosyn. cc: Sotero Sawant MD
[2019-03-27 15:24] LABS: AGAP 13; BUN 6 mg/dL (8-22); CALCIUM 8.4 mg/dL (8.8-10.2); CHLORIDE 101 mmol/L (98-107); COSMO 268; CREATININE 0.5 mg/dL (0.5-0.9); ESTIMATED GFR > 60; GLUCOSE 171 mg/dL (70-104); MAGNESIUM 1.8 mg/dL (1.5-2.7); PHOSPHORUS 1.5 mg/dL (2.7-4.5); SODIUM 133 mmol/L (136-145); TCO2 19 mmol/L (25-35)
[2019-03-27] MEDS ORDERED: VANCOMYCIN IV PER PHARMACY MISC SCH (16:30)
[2019-03-27] MEDS: CARAFATE PO SCH ×2 (16:43→20:08)
[2019-03-27] MEDS ORDERED: LEVEMIR SUBQ ONE (16:47)
[2019-03-27] MEDS: HUMALOG SUBQ SCH ×2 (17:22→20:19)
[2019-03-27] MEDS ORDERED: INSULIN PEN NEEDLES ONE (17:23)
[2019-03-27] MEDS ORDERED: VANCOMYCIN 1,300 MG in NS 250 ML IV ONE (18:00)
[2019-03-27] MEDS: BUSPAR PO SCH (20:08)
[2019-03-27] MEDS: TYLENOL PO PRN (23:28)
[2019-03-28] MEDS: HUMALOG SUBQ SCH ×4 (00:53→13:14)
[2019-03-28] MEDS: NUBAIN IV PRN ×3 (01:12→13:21)
[2019-03-28] MEDS: CARAFATE PO SCH ×4 (06:10→21:21)
[2019-03-28] MEDS: PRILOSEC PO SCH (06:10)
[2019-03-28] MEDS: LOVENOX SUBQ SCH (06:11)
--- NOTE | 2019-03-28 06:42 | HISTORY AND PHYSICAL ---
CHIEF COMPLAINT: High blood sugar. HISTORY OF PRESENT ILLNESS: Ms. Mallory is a 43-year-old female who is known to our service with a history of noncompliance and diabetes mellitus type 1, presented to the emergency room stating that she had low blood pressures as well as high blood sugars. Apparently she had some loss of consciousness prior to arrival. She did not fall or hit her head. States that she did have a really bad headache, was having difficulty seeing and states that she has been very stressed out recently. She also stated that she has been taking all meds correctly; however, she has a history of saying that and possibly not taking her medications with having very elevated hemoglobin A1c's. Laboratory data was completed in the emergency room and she was found to be in early DKA. She will be placed on DKA protocol and monitored in the ICU. PAST MEDICAL HISTORY: 1. Diabetes mellitus type 1. 2. DKA. 3. Medical noncompliance. PREVIOUS SURGICAL HISTORY: Denies. SOCIAL HISTORY: Denies illicit drugs; however, she is positive in the past for amphetamines. Drug screen was negative on this admission. No alcohol. Half a pack per day smoker. FAMILY HISTORY: Positive for diabetes mellitus. ALLERGIES: No known drug allergies. HOME MEDICATIONS: 1. Buspirone 50 mg tablet 1/2 in the morning, 1/2 in the evening. 2. Levemir 15 units at bedtime, 30 units q.a.m. 3. Carafate 1 gram p.o. before meals and at bedtime. 4. Loperamide 2 mg p.o. daily. 5. [place] 10 q.6 p.r.n. REVIEW OF SYSTEMS: Fourteen point review of systems conducted with the patient. Pertinent positives listed above in the HPI. She also complained of polydipsia and polyuria. All other systems reviewed and found to be negative. PHYSICAL EXAMINATION: VITAL SIGNS: Temperature 97.7 degrees, pulse 100, respirations 23, blood pressure 96/69, oxygen saturation 100% on room air. GENERAL: Ill-appearing female lying in the ER stretcher. She is in no acute distress. HEENT: Head is atraumatic, normocephalic. Pupils equal, round and reactive to light. Extraocular eye movement is intact. Sclerae anicteric. Conjunctivae pink. Oral mucosa is dry. Poor dentition noted. NECK: Supple. No JVD. No thyromegaly. Trachea is midline. No cervical lymphadenopathy. CARDIAC: S1 and S2 appreciated. No murmurs, gallops, rubs. LUNGS: Clear to auscultation. Breaths are shallow. No rhonchi, wheezes, rales. Symmetric rise and fall of respirations. ABDOMEN: Soft, nondistended, nontender. Bowel sounds present in all 4 quadrants. Normoactive. No pulsatile masses. No organomegaly. EXTREMITIES: No cyanosis, clubbing or edema. 2+ pedal pulses bilaterally. GENITOURINARY: No bladder distention. Patient voids. Otherwise deferred. NEUROLOGICAL: Alert and oriented x3. Cranial nerves 2-12 grossly intact. DIAGNOSTIC DATA: Chest x-ray, no acute disease. LABORATORY DATA: WBC 15.0, hemoglobin 13.5, hematocrit 40, platelet count 590,000. Coags within normal limits. ABG, pH 7.35, PCO2 37, PO2 112, bicarb 21.3. Sodium 136, potassium 3.2, chloride 97, carbon dioxide 21, BUN 15, creatinine 0.7, glucose 416. Urine unremarkable. Toxicology screen negative. ASSESSMENT AND PLAN: 1. Early DKA. 2. Medical noncompliance. 3. Hypotension. 4. Volume depletion. 5. Tobacco use. PLAN: We will admit patient to ICU. Continue DKA protocol, fluids and insulin drip as well as electrolyte protocols and DKA protocol. Again reviewed the patient's medications with her. She states she has been taking them. She has leukocytosis. Blood cultures are pending. We will not start her on prophylactic antibiotics at this time. Further recommendations per patient's clinical course. Dictated by ANGELA Ramirez for Chris Otero MD I have performed a face to face diagnostic evaluation. Labs/Xrays- reviewed. Exam- Chest -clear, CV- regular. A/P Hyperglycemia/ Early DKA- Admit, DKA protocol, IV fluids, Insulin. Dr. Otero cc: ANGELA Ramirez MD [facility]
[2019-03-28 06:56] LABS: AGAP 10; BUN 5 mg/dL (8-22); CALCIUM 8.6 mg/dL (8.8-10.2); CHLORIDE 98 mmol/L (98-107); COSMO 266; CREATININE 0.5 mg/dL (0.5-0.9); ESTIMATED GFR > 60; GLUCOSE 144 mg/dL (70-104); POTASSIUM 5.1 mmol/L (3.5-5.1); SODIUM 133 mmol/L (136-145); TCO2 25 mmol/L (25-35)
[2019-03-28 07:27] LABS: BASO# 0.02 X1000 (0.0-0.2); BASO% 0.2 % (0.0-0.8); EOS% 2.2 % (0.0-10.0); HEMATOCRIT 30.6 % (37.0-47.0); HEMOGLOBIN 9.4 g/dL (12.0-16.0); LYMPH# 3.68 X1000 (1.2-3.4); LYMPH% 40.9 % (20.5-51.1); MCHC 30.7 g/dL (33-37); MCV 81.4 FL (81-99); MONO# 0.56 X1000 (0.11-0.59); MONO% 6.2 % (1.7-9.3); MPV 10.2 FL (7.4-10.4); NEUT# 4.54 X1000 (1.4-6.5); NEUT% 50.5 % (42.2-75.2); PLT 345 X1000 (130-400); RBC 3.76 XMIL (4.2-5.4); RDW 17.5 % (11.5-14.5)
[2019-03-28] MEDS ORDERED: LEVEMIR INJ SCH ×2 (09:00→21:00)
[2019-03-28] MEDS: BUSPAR PO SCH ×2 (09:11→21:21)
[2019-03-28] MEDS: TYLENOL PO PRN (11:43)
[2019-03-28] MEDS ORDERED: VANCOMYCIN 1 GM/NS 1 GM/250 ML IVPB IV SCH (12:00)
[2019-03-28] MEDS: NS 1,000 ML IV SCH (16:47)
--- NOTE | 2019-03-28 18:10 | EKG Report ---
Test Performed on : 03/28/2019 4:20:06 PM Test Reason : EKG Blood Pressure : / mmHG Vent. Rate : 092 BPM Atrial Rate : 092 BPM P-R Int : 092 ms QRS Dur : 064 ms QT Int : 356 ms P-R-T Axes : 000 084 079 degrees QTc Int : 440 ms Sinus rhythm. with short [place] Nonspecific ST abnormality Abnormal ECG When compared with ECG of 26-MAR-2019 20:10, (Unconfirmed) OH interval has decreased ST elevation now present in Inferior leads T wave inversion no longer evident in Inferior leads Nonspecific T wave abnormality, improved in Anterolateral leads Confirmed by Stu MAYER, [place] ([id number]) on 03/30/2019 9:20:50 AM
--- NOTE | 2019-03-28 21:17 | PROGRESS NOTE ---
DATE: 03/28/2019 SUBJECTIVE: She is doing okay, except weak. OBJECTIVE: Blood pressure is 143/75, heart rate 86, respiratory rate 19, temperature 97.8 degrees.Cardiovascular: Regular rate and rhythm. Pulmonary: Bilateral breath sounds. Clear to auscultation. Gastrointestinal: Soft, nontender, nondistended. Bowel sounds are positive. Extremities: No clubbing or cyanosis. Lymphatic: No peripheral edema. Neurological: Nonfocal. LABORATORY DATA: White count is 9, hemoglobin and hematocrit 9 and 30, platelets of 345,000. BUN and creatinine of 5 and 0.5, gap is 10, bicarbonate 25, sugar 144. She had a couple of low sugars like in the range of 60s. PROBLEM LIST: 1. Diabetic ketoacidosis. We will continue treatment including insulin. I am going to drop her morning from 30 to 15 and we will see how she does. Continue to monitor her blood sugars. 2. Hypophosphatemia. Stable. 3. Leukocytosis has resolved. She is not on any antibiotics. Her coag-negative staph is likely a contaminant. 4. Unusual P axis. I am not quite sure why she has almost a re-entrant kind of P wave. Will get Cardiology to look over her EKG. She has done this off and on since September or February of last year. We will see if there is anything going on there. cc: Sotero Sawant MD
[2019-03-28] MEDS: ULTRAM PO PRN (21:21)
[2019-03-28] MEDS: HUMULIN R SUBQ SCH (21:25)
[2019-03-29] MEDS: TYLENOL PO PRN (00:27)
[2019-03-29] MEDS: ULTRAM PO PRN ×2 (03:24→09:40)
[2019-03-29] MEDS ORDERED: INSULIN PEN NEEDLES ONE (04:47)
[2019-03-29] MEDS: NS 1,000 ML IV SCH (05:16)
[2019-03-29] MEDS: HUMULIN R SUBQ SCH ×3 (05:21→12:01)
[2019-03-29] MEDS: LOVENOX SUBQ SCH (06:10)
[2019-03-29] MEDS: CARAFATE PO SCH ×3 (06:10→15:15)
[2019-03-29] MEDS: PRILOSEC PO SCH (06:10)
[2019-03-29 06:18] LABS: BASO# 0.02 X1000 (0.0-0.2); BASO% 0.3 % (0.0-0.8); EOS# 0.15 X1000 (0.0-0.7); HEMATOCRIT 30.3 % (37.0-47.0); HEMOGLOBIN 9.4 g/dL (12.0-16.0); LYMPH# 3.52 X1000 (1.2-3.4); MCH 25.6 PG (27-31); MCV 82.6 FL (81-99); MONO# 0.48 X1000 (0.11-0.59); MONO% 6.3 % (1.7-9.3); MPV 9.5 FL (7.4-10.4); NEUT# 3.49 X1000 (1.4-6.5); NEUT% 45.4 % (42.2-75.2); PLT 310 X1000 (130-400); RBC 3.67 XMIL (4.2-5.4); RDW 17.6 % (11.5-14.5); WBC 7.66 X1000 (4.8-10.8)
[2019-03-29 06:46] LABS: AGAP 13; BUN 11 mg/dL (8-22); CALCIUM 8.5 mg/dL (8.8-10.2); CHLORIDE 96 mmol/L (98-107); COSMO 273; CREATININE 0.6 mg/dL (0.5-0.9); ESTIMATED GFR > 60; GLUCOSE 256 mg/dL (70-104); MAGNESIUM 1.7 mg/dL (1.5-2.7); POTASSIUM 3.4 mmol/L (3.5-5.1); SODIUM 132 mmol/L (136-145); TCO2 23 mmol/L (25-35)
[2019-03-29] MEDS ORDERED: LEVEMIR SUBQ SCH (09:00)
[2019-03-29] MEDS: BUSPAR PO SCH (09:17)
[2019-03-29 12:50] VITALS: BP 140/68
--- NOTE | 2019-03-29 21:40 | DISCHARGE SUMMARY ---
ADMISSION DATE: 03/26/2019 DISCHARGE DATE: 03/29/2019 DISCHARGE DIAGNOSIS: 1. Diabetic ketoacidosis. 2. Hypophosphatemia. 3. Unusuall P axis with probably a reentrant tachycardia. Briefly this is a 43-year-old female who came in for evaluation because of DKA which she has frequently. She was placed on IV fluids, IV insulin. Her gap closed the following day she was transitioned back to her regular insulin. She did have a low sugar that dropped into the 60s so we adjusted her daytime insulin down to 20 units. She did have kind of a variable P wave morphology which looking back she has had this intermittently even as far back as 2018. I did discuss the case briefly with Dr. Vidal, since she was asymptomatic [facility]. I think an echocardiogram was obtained prior to discharge but I do not have the results back yet. In any case, will make sure she follows up with Cardiology for evaluation. DISCHARGE MEDICATIONS: Levemir 15 at bedtime, BuSpar 7.5 b.i.d., loperamide, Restoril 15 at bedtime, Carafate 1 g a.c., at bedtime, Levemir 15 units in the morning, she should have a short- acting insulin probably need short-acting probably Humalog 5 units t.i.d. with meals. DISCHARGE CONDITION: Stable and we will continue to follow. cc: MD GIANCARLO Rodriguez
--- NOTE | 2019-03-30 15:03 | ECHO REPORT ---
ORDER DATE: 03/29/2019 MEASUREMENTS: Septal thickness 1.0, left ventricular internal diameter in diastole 3.5, posterior wall thickness 0.9, left ventricular internal diameter in systole 2.5, aortic root 3.2, left atrium 2.6. SUMMARY: 1. Adequate quality study. 2. The aortic valve is trileaflet and opens normally on 2-dimensional images. The peak gradient across the aortic valve is less than 10 mmHg. Mitral, tricuspid, and pulmonic valves are without evidence of structural abnormality, with very mild tricuspid regurgitation. The estimated systolic PA pressure by Doppler is 30 mmHg. The aortic root is normal in size. 3. Normal left ventricular dimensions demonstrated. The estimated left ventricular ejection fraction appears to be at least 60%. No regional wall motion abnormalities are evident. Left atrium, right atrium, and right ventricle are normal in size with normal right ventricular systolic function. 4. No pericardial effusion. 5. Appearance of inferior vena cava suggests normal central venous pressure. CONCLUSIONS: 1. Very mild tricuspid regurgitation with estimated systolic PA pressure of 30 mmHg. 2. Normal left ventricular systolic function without regional wall motion abnormality evident. cc: MD Sotero Oliveira MD
== END 2019-03-29 15:50 | disposition home or self-care (01) | DRG 639 ==
LOC: SUPCPDRO → ED 19:46 → SUATTDRO 22:48 → EDIPHOLD 22:48 → ICU 03-27 00:31 → 1N 03-28 18:46
PROVIDERS: ATTEND Internal Medicine